=== PATIENT | female | born 1960 | race Asian ===

== ENCOUNTER 2016-05-26 14:50 | Outpatient (CLI) | payer OTHER | END 2016-05-26 14:51 | disposition home or self-care (01) | DX: G47.33 Obstructive sleep apnea (adult) (pediatric) (principal) ==

== ENCOUNTER 2016-07-20 15:06 | Outpatient (CLI) | payer OTHER | END 2016-07-20 15:07 | disposition home or self-care (01) | LOC: SC 15:06 | PROVIDERS: ATTEND Internal Medicine Pulmonary Disease | DX: G47.33 Obstructive sleep apnea (adult) (pediatric) (principal) | CPT/HCPCS: 99212; 99213 ==

== ENCOUNTER 2016-08-31 15:16 | Outpatient (CLI) | payer OTHER | END 2016-08-31 15:17 | disposition home or self-care (01) | LOC: SC 15:16 | PROVIDERS: ATTEND Internal Medicine Pulmonary Disease | DX: G47.33 Obstructive sleep apnea (adult) (pediatric) (principal) | CPT/HCPCS: 99212; 99213 ==

== ENCOUNTER 2016-09-29 19:41 | Outpatient (CLI) | payer OTHER | END 2016-09-29 19:42 | disposition home or self-care (01) | LOC: SC 19:41 | PROVIDERS: ATTEND Internal Medicine Pulmonary Disease | DX: G47.33 Obstructive sleep apnea (adult) (pediatric) (principal); G47.61 Periodic limb movement disorder | CPT/HCPCS: 95810 ==

== ENCOUNTER 2016-11-16 15:17 | Outpatient (CLI) | payer OTHER | END 2016-11-16 15:18 | disposition home or self-care (01) | LOC: SC 15:17 | PROVIDERS: ATTEND Internal Medicine Pulmonary Disease | DX: G47.33 Obstructive sleep apnea (adult) (pediatric) (principal); G47.61 Periodic limb movement disorder | CPT/HCPCS: 99212; 99213 ==

== ENCOUNTER 2017-04-15 16:36 | Outpatient (CLI) | payer OTHER ==
[2017-04-16 13:43] LABS: HEPATITIS C ANTIBODY NON-REACTIVE (NON-REACTIVE)
== END 2017-04-15 16:37 | disposition home or self-care (01) ==
LOC: LAB.WCP 16:36
PROVIDERS: ATTEND Internal Medicine
DX: Z13.818 Encounter for screening for other digestive system disorders (principal)
CPT/HCPCS: 36415; 86803

== ENCOUNTER 2019-09-04 14:30 | Emergency (ER) | payer OTHER ==
[2019-09-04 14:50] LABS: BILIRUBIN,URINE NEGATIVE (NEGATIVE); GLUCOSE, URINE (UA) >=1000 mg/dL (NEGATIVE); KETONES,URINE (UA) NEGATIVE (NEGATIVE); LEUKOCYTE ESTERASE, URINE NEGATIVE (NEGATIVE); NITRITE,URINE NEGATIVE (NEGATIVE); OCCULT BLOOD,URINE NEGATIVE (NEGATIVE); PROTEIN,URINE NEGATIVE (NEGATIVE); UROBILINOGEN,URINE 0.2 (NORMAL) E.U./dL (NORMAL)
[2019-09-04 14:55] LABS: CLARITY,URINE CLEAR (CLEAR)
--- NOTE | 2019-09-04 15:40 | ED Physician Documentation ---
PD HPI FEMALE - Stated complaint Stated Complaint: F - Chief complaint Chief Complaint: UTI - History obtained from History obtained from: Patient - History of Present Illness Timing - onset: How many days ago (few days of frequency of urine, but just small amounts out. Some labial/vaginal itchiness. No discharge. NO flank pain. No fever. Has not checked sugars lately due to glucometer not working.) Timing - duration: Days Timing - details: Gradual onset, Waxing and waning Associated symptoms: Vaginal discharge, Dysuria, Urinary frequency. 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 - Present Medications Home Medications: Ambulatory Orders Medication Instructions Recorded Confirmed Aspirin [Aspirin EC] 81 mg PO DAILY 09/13/14 09/13/14 Atorvastatin [Lipitor] 20 mg PO DAILY 09/13/14 09/13/14 Citalopram [CeleXA] 20 mg PO DAILY 09/13/14 09/13/14 Eszopiclone [Lunesta] 2 mg PO DAILY PRN 09/13/14 09/13/14 Insulin Aspart (Vial) [NovoLOG] 60 units SUBQ AC 09/13/14 09/13/14 Insulin Glargine,Hum.rec.anlog 80 units SUBQ BID 09/13/14 09/13/14 [Lantus] [place] Carbonate 450 mg PO DAILY 09/13/14 09/13/14 Omeprazole [PriLOSEC] 20 mg PO DAILY 09/13/14 09/13/14 Oxybutynin [Ditropan] 5 mg PO DAILY 09/13/14 09/13/14 Ziprasidone [Geodon] 60 mg PO DAILY 09/13/14 09/13/14 risperiDONE [RisperDAL] 1.5 mg PO BID 09/13/14 09/13/14 Blood Sugar Diagnostic [Glucometer 1 each MC BID #60 strip 09/04/19 Strips] Blood-Glucose Meter [Glucometer] 1 each BID #1 each 09/04/19 Fluconazole [Diflucan] 150 mg PO ONCE #1 tablet 09/04/19 Phenazopyridine HCl [Pyridium] 100 mg PO TID PRN #15 tablet 09/04/19 metroNIDAZOLE [Flagyl] 500 mg PO BID #14 tablet 09/04/19 - Allergies Allergies/Adverse Reactions: Allergies Allergy/AdvReac Type Severity Reaction Status Date / Time lisinopril AdvReac Respiratory Verified 09/04/19 14:36 meperidine [From Demerol] AdvReac Dizziness Verified 09/04/19 14:36 - Social History Does the pt smoke?: No Smoking Status: Never smoker Does the pt drink ETOH?: No Does the pt have substance abuse?: No - Immunizations Immunizations are current?: Yes - POLST Patient has POLST: No PD ED PE NORMAL - Vitals Vital signs reviewed: Yes - General General: Alert and oriented X 3, No acute distress, Well developed/nourished - Neck Neck: Supple, no meningeal sign, No adenopathy - Cardiac Cardiac: RRR, No murmur - Respiratory Respiratory: Clear bilaterally - Abdomen Abdomen: Soft, Non tender - Female Female : Deferred - Rectal Rectal: Deferred - Back Back: No CVA TTP - Derm Derm: Normal color, Warm and dry - Neuro Neuro: Alert and oriented X 3, No motor deficit, Normal speech Results - Vitals Vitals: Vital Signs - 24 hr 09/04/19 09/04/19 14:33 17:01 Temperature 36.9 C 36.8 C Heart Rate 88 86 Respiratory 16 16 Rate Blood Pressure 167/81 H 160/80 H O2 Saturation 100 100 Oxygen O2 Source Room air - Labs Labs: Laboratory Tests 09/04/19 09/04/19 09/04/19 14:43 16:27 16:42 POC Whole Bld Glucose 326 H Urine Color YELLOW Urine Clarity CLEAR Urine pH 7.0 Ur Specific [place] 1.010 Urine Protein NEGATIVE Urine Glucose (UA) >=1000 H Urine Ketones NEGATIVE Urine Occult Blood NEGATIVE Urine Nitrite NEGATIVE Urine Bilirubin NEGATIVE Urine Urobilinogen 0.2 (NORMAL) Ur Leukocyte Esterase NEGATIVE Ur Microscopic Review NOT INDICATED Urine Culture Comments NOT INDICATED C. glabrata (PCR) NEGATIVE C. krusei (PCR) NEGATIVE [place] species DNA NEGATIVE T. vaginalis (PCR) NEGATIVE Bact Vaginosis (PCR) NEGATIVE PD MEDICAL DECISION MAKING - ED course Complexity details: considered differential (UA is normal. Her blood sugar is not too high, so doubt frequency is just diuretic effect. Bladder scan is good, so no retention. Can test for vaginitis. Otherwise treat for presumed yeast vaginitis, pending culture results. ), d/w patient Departure - Departure Disposition: 01 Home, Self Care Clinical Impression: Dysuria Condition: Stable Record reviewed to determine appropriate education?: Yes Instructions: ED Dysuria Uncertain Cause Follow-Up: CHRISTINE SANTIAGO MD [Primary Care Provider] - Prescriptions: Fluconazole [Diflucan] 150 mg PO ONCE #1 tablet metroNIDAZOLE [Flagyl] 500 mg PO BID #14 tablet Blood-Glucose Meter [Glucometer] 1 each MC BID #1 each Blood Sugar Diagnostic [Glucometer Strips] 1 each MC BID #60 strip Phenazopyridine HCl [Pyridium] 100 mg PO TID PRN #15 tablet PRN Reason: Abdominal Pain Comments: Your blood sugar was moderately high at 320. Follow-up with your primary care regarding potential adjustments to your medications. Start tracking your blood sugars more regularly. Your bladder scanner showed appropriate emptying of the bladder. Your urine test does not show obvious signs of infection but at this point I would presume an infection causing your urinary symptoms. We can treat empirically pending culture. The culture should result in a day or two. There may be just some inflammation of the urethra as well causing the symptoms rather than infection. The phenazopyridine will help with this symptoms and commonly would improve with just that. Discharge Date/Time: 09/04/19 17:01
[2019-09-04] MEDS ORDERED: FLUCONAZOLE 100 MG TABLET PO STA (16:17)
[2019-09-04] MEDS ORDERED: PHENAZOPYRIDINE 100 MG TABLET PO STA (16:18)
[2019-09-04 17:02] VITALS: BP 160/80
[2019-09-04 19:44] LABS: CANDIDA GROUP DNA NEGATIVE (NEGATIVE); CANDIDA KRUSEI DNA NEGATIVE (NEGATIVE); TRICHOMONAS VAGINALIS DNA NEGATIVE (NEGATIVE)
== END 2019-09-04 17:01 | disposition home or self-care (01) ==
LOC: ED 14:30
DX: R30.0 Dysuria (principal); R35.0 Frequency of micturition; E11.65 Type 2 diabetes mellitus with hyperglycemia; Z79.4 Long term (current) use of insulin; Z79.82 Long term (current) use of aspirin
CPT/HCPCS: 51798; 81003; 87481; 87661; 87801; 99284; A9270; 81001; 87086

== ENCOUNTER 2020-02-19 13:33 | Outpatient (CLI) | payer OTHER ==
--- NOTE | 2020-02-19 15:39 | DEXA Report ---
PROCEDURE: Dexa Spine and/or Hip INDICATIONS: [facility] HX OF OSTEOPOROSIS TECHNIQUE: Dual energy x-ray absorptiometry (DXA) was performed on a [employer] System. Regions measur ed are the AP Spine, femoral neck, and if needed forearm. COMPARISON: None. FINDINGS: Lumbar Spine: Bone Mineral Density 0.991 g/cm/cm,T score -1.6, osteopenia Left Hip: Bone Mineral Density 0.854 g/cm/cm,T score -1.2, osteopenia Left Femoral Neck: Bone Mineral Density 0.756 g/cm/cm, T score -2.0, osteopenia (T score greater or equal to -1.0: NORMAL) (T score from -1.1 to -2.4: OSTEOPENIA) (T score less than or equal to -2.5 to: OSTEOPOROSIS) Impression: 1. Osteopenia within the spine, hip and femoral neck most severe in the femoral neck as above. Patients with diagnosis of osteoporosis or osteopenia should have regular bone mineral density assess ment. For those eligible for Medicare, routine testing is allowed once every 2 years. Testing frequ ency can be increased for patients who have rapidly progressing disease or for those who are receivin g medical therapy to restore bone mass. Reviewed by: Rylee Woodall MD on 02/19/2020 3:38 PM PST Approved by: Rylee Woodall MD on 02/19/2020 3:38 PM PST Station ID: [id number]
== END 2020-02-19 13:34 | disposition home or self-care (01) ==
LOC: DI 13:33
PROVIDERS: ATTEND Internal Medicine
DX: M85.89 Other specified disorders of bone density and structure, multiple sites (principal); Z82.62 Family history of osteoporosis

== ENCOUNTER 2020-02-25 00:45 | Emergency (ER) | payer OTHER ==
--- NOTE | 2020-02-25 02:24 | ED Physician Documentation ---
History of Present Illness - Stated complaint Stated Complaint: COUGH - Chief complaint Chief Complaint: Resp - History obtained from History obtained from: Patient - Additonal information Additional information: Patient comes emergency department chief complaint of feeling like she has to breathe deeply. She states it started this evening and that it has been somewhat intermittent. She denies chest pain. No fevers or chills. She has occasionally had a mild cough. With no sputum production. Patient states that she has not had any sick contacts recently. No cardiac or lung problems. No other complaints at this time. Review of Systems Ten Systems: 10 systems reviewed and negative Constitutional: reports: Reviewed and negative Eyes: reports: Reviewed and negative Ears: reports: Reviewed and negative Nose: reports: Reviewed and negative Throat: reports: Reviewed and negative Cardiac: reports: Reviewed and negative Respiratory: reports: Dyspnea GI: reports: Reviewed and negative : reports: Reviewed and negative Skin: reports: Reviewed and negative Musculoskeletal: reports: Reviewed and negative Neurologic: reports: Reviewed and negative Psychiatric: reports: Reviewed and negative Endocrine: reports: Reviewed and negative Immunocompromised: reports: Reviewed and negative PD PAST MEDICAL HISTORY - Past Medical History Past Medical History: Yes Cardiovascular: High cholesterol Endocrine/Autoimmune: Type 2 diabetes GI: GERD Psych: Bipolar disorder - Past Surgical History 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 - Present Medications Home Medications: Ambulatory Orders Medication Instructions Recorded Confirmed Aspirin [Aspirin EC] 81 mg PO DAILY 09/13/14 09/13/14 Atorvastatin [Lipitor] 20 mg PO DAILY 09/13/14 09/13/14 Citalopram [CeleXA] 20 mg PO DAILY 09/13/14 09/13/14 Eszopiclone [Lunesta] 2 mg PO DAILY PRN 09/13/14 09/13/14 Insulin Aspart (Vial) [NovoLOG] 60 units SUBQ AC 09/13/14 09/13/14 Insulin Glargine,Hum.rec.anlog 80 units SUBQ BID 09/13/14 09/13/14 [Lantus] [place] Carbonate 450 mg PO DAILY 09/13/14 09/13/14 Omeprazole [PriLOSEC] 20 mg PO DAILY 09/13/14 09/13/14 Oxybutynin [Ditropan] 5 mg PO DAILY 09/13/14 09/13/14 Ziprasidone [Geodon] 60 mg PO DAILY 09/13/14 09/13/14 risperiDONE [RisperDAL] 1.5 mg PO BID 09/13/14 09/13/14 Blood Sugar Diagnostic [Glucometer 1 each MC BID #60 strip 09/04/19 Strips] Blood-Glucose Meter [Glucometer] 1 each MC BID #1 each 09/04/19 Fluconazole [Diflucan] 150 mg PO ONCE #1 tablet 09/04/19 Phenazopyridine HCl [Pyridium] 100 mg PO TID PRN #15 tablet 09/04/19 metroNIDAZOLE [Flagyl] 500 mg PO BID #14 tablet 09/04/19 - Allergies Allergies/Adverse Reactions: Allergies Allergy/AdvReac Type Severity Reaction Status Date / Time lisinopril AdvReac Respiratory Verified 02/25/20 01:02 meperidine [From Demerol] AdvReac Dizziness Verified 02/25/20 01:02 - Social History Does the pt smoke?: No Smoking Status: Never smoker Does the pt drink ETOH?: No Does the pt have substance abuse?: No - Immunizations Immunizations are current?: Yes - POLST Patient has POLST: No PD ED PE NORMAL - Vitals Vital signs reviewed: Yes - General General: Alert and oriented X 3, No acute distress - HEENT HEENT: Atraumatic, PERRL, EOMI, Moist mucous membranes - Neck Neck: Supple, no meningeal sign - Cardiac Cardiac: RRR, No murmur - Respiratory Respiratory: No respiratory distress (Breathing normally and speaking without difficulty.), Clear bilaterally - Abdomen Abdomen: Soft, Non tender, Non distended - Derm Derm: Normal color, Warm and dry, No rash - Extremities Extremities: No deformity, No edema, No calf tenderness / cord - Neuro Neuro: Alert and oriented X 3 - Psych Psych: Normal mood, Normal affect Results - Vitals Vitals: Oxygen O2 Source Room air PD MEDICAL DECISION MAKING - ED course Complexity details: reviewed results, re-evaluated patient, considered differential, d/w patient ED course: The patient was actually very well-appearing and I did not feel that extensive work-up was indicated. She seemed anxious more than anything. She was sent for chest x-ray which was found to be negative. I discussed with the patient that she does not have an emergent condition, her vital signs are normal, and she is stable for discharge. We have discussed home management of the symptoms, as well as usual indications for return. Departure - Departure Disposition: 01 Home, Self Care Clinical Impression: Dyspnea Qualifiers: Dyspnea type: unspecified Qualified Code(s): R06.00 - Dyspnea, unspecified Condition: Stable Instructions: ED Dyspnea Shortness of Breath Comments: Your chest x-ray looks great, and your lung exam and oxygen saturation are also very good. There is no evidence of an emergent condition causing your symptoms. If you continue to have the sense of needing to breathe deeply, please follow- up with your primary care physician. If you develop severe chest pain or shortness of breath, please return to the emergency department. Discharge Date/Time: 02/25/20 02:33
[2020-02-25 02:32] VITALS: BP 135/72
--- NOTE | 2020-02-25 08:25 | XRAY Report ---
PROCEDURE: Chest 1 View X-Ray INDICATIONS: chest pain TECHNIQUE: One view of the chest was acquired. COMPARISON: None. FINDINGS: Surgical changes and devices: None. Lungs and pleura: No pleural effusions or pneumothorax. Lungs are clear. Mediastinum: Mediastinal contours appear normal. Heart size is normal. Bones and chest wall: No suspicious bony lesions. Overlying soft tissues appear unremarkable. IMPRESSION: No acute cardiopulmonary findings. Findings are concordant with the overnight interpretation. Reviewed by: Mary Jo Horvath MD on 02/25/2020 7:24 AM [facility] Approved by: Mary Jo Horvath MD on 02/25/2020 7:24 AM [facility] Station ID: [id number]
== END 2020-02-25 02:33 | disposition home or self-care (01) ==
LOC: ED 00:45
DX: R06.00 Dyspnea, unspecified (principal); E11.9 Type 2 diabetes mellitus without complications; Z79.4 Long term (current) use of insulin
CPT/HCPCS: 99282; 99283

== ENCOUNTER 2020-04-03 16:14 | Emergency (ER) | payer OTHER ==
[2020-04-03 16:20] VITALS: BP 147/60
--- NOTE | 2020-04-03 16:23 | ED Physician Documentation ---
PD HPI LOWER EXT INJURY - Stated complaint Stated Complaint: LT FOOT PX - Chief complaint Chief Complaint: Ext Problem - History obtained from History obtained from: Patient - History of Present Illness PD HPI LOW EXT INJURY LOCATION: Left, Foot Type of injury: Other (not aware of particular injury, but onset dorsal proximal foot pain with walking and movement 3 days ago that has persisted and worsened. No redness nor swelling.). No: Fall, Twist Timing - onset: How many days ago (3) Timing - details: Gradual onset, Intermittant (not hurting at rest. Hurts with movement and walking.) Improved by: Rest Worsened by: Moving, Palpating, Other (walking mostly) Associated symptoms: No: Weakness, Numbness, Swelling, Discolored Similar symptoms before: Has not had sx before Recently seen: Not recently seen Review of Systems Constitutional: denies: Fever, Chills Nose: denies: Rhinorrhea / runny nose, Congestion Throat: denies: Sore throat Respiratory: denies: Cough Skin: denies: Rash, Lesions Musculoskeletal: denies: Extremity swelling Neurologic: denies: Focal weakness, Numbness PD PAST MEDICAL HISTORY - Past Medical History Cardiovascular: High cholesterol Endocrine/Autoimmune: Type 2 diabetes GI: GERD Psych: Bipolar disorder - Past Surgical History 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 - Present Medications Home Medications: Ambulatory Orders Medication Instructions Recorded Confirmed Aspirin [Aspirin EC] 81 mg PO DAILY 09/13/14 09/13/14 Atorvastatin [Lipitor] 20 mg PO DAILY 09/13/14 09/13/14 Citalopram [CeleXA] 20 mg PO DAILY 09/13/14 09/13/14 Eszopiclone [Lunesta] 2 mg PO DAILY PRN 09/13/14 09/13/14 Insulin Aspart (Vial) [NovoLOG] 60 units SUBQ AC 09/13/14 09/13/14 Insulin Glargine,Hum.rec.anlog 80 units SUBQ BID 09/13/14 09/13/14 [Lantus] [place] Carbonate 450 mg PO DAILY 09/13/14 09/13/14 Omeprazole [PriLOSEC] 20 mg PO DAILY 09/13/14 09/13/14 Oxybutynin [Ditropan] 5 mg PO DAILY 09/13/14 09/13/14 Ziprasidone [Geodon] 60 mg PO DAILY 09/13/14 09/13/14 risperiDONE [RisperDAL] 1.5 mg PO BID 09/13/14 09/13/14 Blood Sugar Diagnostic [Glucometer 1 each MC BID #60 strip 09/04/19 Strips] Blood-Glucose Meter [Glucometer] 1 each MC BID #1 each 09/04/19 Fluconazole [Diflucan] 150 mg PO ONCE #1 tablet 09/04/19 Phenazopyridine HCl [Pyridium] 100 mg PO TID PRN #15 tablet 09/04/19 metroNIDAZOLE [Flagyl] 500 mg PO BID #14 tablet 09/04/19 Naproxen Sodium [Anaprox Ds] 550 mg PO BID #20 tablet 04/03/20 - Allergies Allergies/Adverse Reactions: Allergies Allergy/AdvReac Type Severity Reaction Status Date / Time lisinopril AdvReac Respiratory Verified 04/03/20 16:20 meperidine [From Demerol] AdvReac Dizziness Verified 04/03/20 16:20 - Social History Does the pt smoke?: No Smoking Status: Never smoker Does the pt drink ETOH?: No Does the pt have substance abuse?: No - Immunizations Immunizations are current?: Yes - POLST Patient has POLST: No PD ED PE NORMAL - Vitals Vital signs reviewed: Yes - General General: Alert and oriented X 3, No acute distress, Well developed/nourished - Derm Derm: Normal color, Warm and dry - Extremities Extremities: Other (left foot with tenderness dorsal proximal foot. No swelling nor redness. Good pulses, color and cap refill distal. No skin sores nor lesions around toes. ) - Neuro Neuro: No motor deficit, No sensory deficit Results - Vitals Vitals: Vital Signs - 24 hr 04/03/20 16:17 Temperature 36.9 C Heart Rate 89 Respiratory 16 Rate Blood Pressure 147/60 H O2 Saturation 99 Oxygen O2 Source Room air - Rads (name of study) left foot Radiology: Prelim report reviewed (no acute process. osteoarthritis. ), See rad report Departure - Departure Disposition: 01 Home, Self Care Clinical Impression: Foot sprain Qualifiers: Encounter type: initial encounter Laterality: left Qualified Code(s): S93.602A - Unspecified sprain of left foot, initial encounter Condition: Stable Record reviewed to determine appropriate education?: Yes Instructions: ED Sprain Foot Follow-Up: CHRISTINE SANTIAGO MD [Primary Care Provider] - Prescriptions: Naproxen Sodium [Anaprox Ds] 550 mg PO BID #20 tablet Comments: Your x-ray appears normal. This seems likely to be a sprain of the ligaments or muscles of the midfoot. Use the firm soled shoe provided when up and around. Limit activity as needed. Use naproxen anti-inflammatory twice daily for the next 5 to 7 days. Add Tylenol every 4-6 hours if needed for pain. Recheck if not improved well over the next several days and resolved by 4 to 5 days. Discharge Date/Time: 04/03/20 17:16
[2020-04-03] MEDS ORDERED: NAPROXEN 250 MG TABLET PO STA (16:36)
[2020-04-03] MEDS ORDERED: ACETAMINOPHEN 325 MG TABLET PO STA (16:36)
--- NOTE | 2020-04-03 16:51 | XRAY Report ---
PROCEDURE: Foot 3 View LT INDICATIONS: foot pain for 3 days TECHNIQUE: 3 views of the foot were acquired. COMPARISON: None FINDINGS: Bones: No fractures or dislocations. No suspicious bony lesions. Multifocal joint space narrowing and periarticular osteophyte formation at the interphalangeal joints of the digits, indicating osteoa rthritis. Calcaneal spurring. Soft tissues: No tibiotalar joint effusion. Achilles tendon appears normal. IMPRESSION: 1. Osteoarthritis. 2. No acute fracture. No osseous lesion. If symptoms and/or clinical suspicion for pathology continue , further assessment with repeat plain films, or advanced imaging (e.g., CT, MRI, or bone scan) is re commended for further assessment. Reviewed by: Yoav Goel MD on 04/03/2020 4:49 PM PST Approved by: Yoav Goel MD on 04/03/2020 4:49 PM PST Station ID: [id number]
== END 2020-04-03 17:16 | disposition home or self-care (01) ==
LOC: ED 16:14
DX: S93.602A Unspecified sprain of left foot, initial encounter (principal); X58.XXXA Exposure to other specified factors, initial encounter; M19.072 Primary osteoarthritis, left ankle and foot; E11.9 Type 2 diabetes mellitus without complications; Z79.4 Long term (current) use of insulin
CPT/HCPCS: 73630; 99283; A9270

== ENCOUNTER 2020-04-09 13:37 | Outpatient (CLI) | payer OTHER ==
--- NOTE | 2020-04-10 12:29 | Mammography Report ---
BILATERAL DIGITAL SCREENING MAMMOGRAM 3D/2D: 04/09/2020 CLINICAL: Routine screening. Comparison is made to exams dated: 06/08/2018 ultrasound, 06/08/2018 mammogram, 05/20/2018 mammogram, mammogram, 04/21/2016 mammogram, and 03/23/2012 mammogram - [facility]. The ti ssue of both breasts is heterogeneously dense. This may lower the sensitivity of mammography. There is a biopsy clip in the right breast. No significant masses, calcifications, or other findings are seen in either breast. There has been no significant interval change. IMPRESSION: NEGATIVE There is no mammographic evidence of malignancy. A 1 year screening mammogram is recommended. This exam was interpreted at Station ID: [id number]. NOTE: For mammograms, a report in lay terms will be sent to the patient. Approximately 15% of breast malignancies will not be visualized mammographically. In the management of a palpable breast mass, a negative mammogram must not discourage biopsy of a clinically suspicious lesion. Electronically Signed By: Spenser paula/penrad:04/09/2020 17:27:23 ACR BI-RADS Category 1: Negative 3341F PARENCHYMAL PATTERN: (D) - The breast(s) demonstrate(s) heterogeneously dense fibroglandular diandra leiva. BI-RADS CATEGORY: (1) - 1 RECOMMENDATION: (ANNUAL) - Recommend routine annual screening mammography. [id number] 1 year screening LATERALITY: (B)
== END 2020-04-09 13:38 | disposition home or self-care (01) ==
LOC: DI 13:37
DX: Z12.31 Encounter for screening mammogram for malignant neoplasm of breast (principal)

== ENCOUNTER 2021-04-18 15:33 | Emergency (ER) | payer OTHER ==
[2021-04-18 16:01] LABS: BASOPHILS % (AUTO) 0.6 %; EOSINOPHILS # (AUTO) 0.2 10^3/uL (0.0-0.7); EOSINOPHILS % (AUTO) 2.6 %; HCT - HEMATOCRIT 42.4 % (37.0-47.0); LYMPHOCYTES # (AUTO) 0.8 10^3/uL (1.5-3.5); LYMPHOCYTES % (AUTO) 12.8 %; MEAN CORPUSCULAR VOLUME 84.8 fL (81.0-99.0); MEAN PLATELET VOLUME 10.3 fL (7.9-10.8); MONOCYTES # (AUTO) 0.4 10^3/uL (0.0-1.0); MONOCYTES % (AUTO) 6.4 %; NEUTROPHILS # (AUTO) 4.8 10^3/uL (1.5-6.6); NEUTROPHILS % (AUTO) 77.3 %; PLT - PLATELET COUNT 169 10^3/uL (130-450); RED CELL DISTRIBUTION WIDTH 12.9 % (12.0-15.0); WHITE BLOOD COUNT 6.3 x10^3/uL (4.8-10.8)
[2021-04-18 16:12] VITALS: BP 149/100
[2021-04-18 16:15] LABS: ALBUMIN 3.6 g/dL (3.2-5.5); BILIRUBIN,TOTAL 0.4 mg/dL (0.2-1.0); CALCIUM 9.2 mg/dL (8.5-10.3); CREATININE 0.6 mg/dL (0.4-1.0); TOTAL PROTEIN 7.2 g/dL (6.7-8.2)
[2021-04-18] MEDS ORDERED: IBUPROFEN 800 MG TABLET PO STA (16:18)
[2021-04-18 16:43] LABS: BILIRUBIN,URINE NEGATIVE (NEGATIVE); GLUCOSE, URINE (UA) >=1000 mg/dL (NEGATIVE); KETONES,URINE (UA) NEGATIVE (NEGATIVE); LEUKOCYTE ESTERASE, URINE NEGATIVE (NEGATIVE); NITRITE,URINE NEGATIVE (NEGATIVE); OCCULT BLOOD,URINE NEGATIVE (NEGATIVE); PH,URINE 6.5 PH (5.0-7.5); PROTEIN,URINE TRACE mg/dL (NEGATIVE); UROBILINOGEN,URINE 0.2 (NORMAL) E.U./dL (NORMAL)
[2021-04-18 16:45] LABS: CLARITY,URINE CLEAR (CLEAR)
--- NOTE | 2021-04-18 17:19 | ED Physician Documentation ---
History of Present Illness - Stated complaint Stated Complaint: ABD/BACK PX - Chief complaint Chief Complaint: Abd Pain - History obtained from History obtained from: Patient - History of Present Illness Timing: How many days ago (5) Pain level max: 8 Pain level now: 6 - Additonal information Additional information: 61-year-old female with back pain. She states that is worse with movement, better with rest. Only hurts when she tries to sit up. Also has some pain when she walks. Does not recall any injuries. No loss of bowel or bladder control. No radiation. Has not taken anything for pain. Patient does not recall any specific injuries. No numbness or tingling. No abdominal pain. No vomiting, diarrhea, constipation. Review of Systems Ten Systems: 10 systems reviewed and negative Constitutional: denies: Fever, Chills Throat: denies: Sore throat Cardiac: denies: Chest pain / pressure, Palpitations Respiratory: denies: Cough GI: denies: Vomiting, Diarrhea Skin: denies: Rash Musculoskeletal: denies: Neck pain, Back pain Neurologic: denies: Headache PD PAST MEDICAL HISTORY - Past Medical History Past Medical History: Yes Cardiovascular: High cholesterol Respiratory: None Neuro: None Endocrine/Autoimmune: Type 2 diabetes GI: GERD SUPPLY TECH: None : None HEENT: None Psych: Bipolar disorder Musculoskeletal: None - Past Surgical History Past Surgical History: Yes /SUPPLY TECH: Tubal ligation - Present Medications Home Medications: Ambulatory Orders Medication Instructions Recorded Confirmed Aspirin [Aspirin EC] 81 mg PO DAILY 09/13/14 09/13/14 Atorvastatin [Lipitor] 20 mg PO DAILY 09/13/14 09/13/14 Citalopram [CeleXA] 20 mg PO DAILY 09/13/14 09/13/14 Eszopiclone [Lunesta] 2 mg PO DAILY PRN 09/13/14 09/13/14 Insulin Aspart (Vial) [NovoLOG] 60 units SUBQ AC 09/13/14 09/13/14 Insulin Glargine,Hum.rec.anlog 80 units SUBQ BID 09/13/14 09/13/14 [Lantus] [place] Carbonate 450 mg PO DAILY 09/13/14 09/13/14 Omeprazole [PriLOSEC] 20 mg PO DAILY 09/13/14 09/13/14 Oxybutynin [Ditropan] 5 mg PO DAILY 09/13/14 09/13/14 Ziprasidone [Geodon] 60 mg PO DAILY 09/13/14 09/13/14 risperiDONE [RisperDAL] 1.5 mg PO BID 09/13/14 09/13/14 Blood Sugar Diagnostic [Glucometer 1 each MC BID #60 strip 09/04/19 Strips] Blood-Glucose Meter [Glucometer] 1 each MC BID #1 each 09/04/19 Fluconazole [Diflucan] 150 mg PO ONCE #1 tablet 09/04/19 Phenazopyridine HCl [Pyridium] 100 mg PO TID PRN #15 tablet 09/04/19 metroNIDAZOLE [Flagyl] 500 mg PO BID #14 tablet 09/04/19 Naproxen Sodium [Anaprox Ds] 550 mg PO BID #20 tablet 04/03/20 Ibuprofen [Motrin] 800 mg PO Q8H PRN #30 tablet 04/18/21 methocarbamoL [Robaxin] 500 mg PO Q6H PRN #20 tablet 04/18/21 - Allergies Allergies/Adverse Reactions: Allergies Allergy/AdvReac Type Severity Reaction Status Date / Time lisinopril AdvReac Respiratory Verified 04/18/21 16:15 meperidine [From Demerol] AdvReac Dizziness Verified 04/18/21 16:15 - Social History Does the pt smoke?: No Smoking Status: Never smoker Does the pt drink ETOH?: No Does the pt have substance abuse?: No - Immunizations Immunizations are current?: Yes - POLST Patient has POLST: No PD ED PE NORMAL - Vitals Vital signs reviewed: Yes - General General: Alert and oriented X 3, No acute distress - HEENT HEENT: Moist mucous membranes - Neck Neck: Supple, no meningeal sign - Cardiac Cardiac: RRR, Strong equal pulses - Respiratory Respiratory: No respiratory distress, Clear bilaterally - Abdomen Abdomen: Soft, Non tender, Non distended - Back Back: No spinal TTP, Other (No midline tenderness to palpation or percussion. No step-off or deformity. Mild paraspinal tenderness bilateral lower lumbar.) - Derm Derm: Warm and dry - Extremities Extremities: No edema - Neuro Neuro: Alert and oriented X 3, Other (Normal bilateral lower extremity patellar and ankle jerk reflexes. Normal great toe extension bilaterally. no saddle anesthesia) - Psych Psych: Normal mood, Normal affect Results - Vitals Vitals: Vital Signs - 24 hr 04/18/21 04/18/21 04/18/21 15:34 16:11 17:38 Temperature 36.4 C L 37.2 C Heart Rate 69 58 L 88 Respiratory 16 16 Rate Blood Pressure 149/73 H 149/100 H O2 Saturation 97 99 100 Oxygen O2 Source Room air - Labs Labs: Laboratory Tests 04/18/21 04/18/21 04/18/21 15:55 15:55 16:06 WBC 6.3 RBC 5.00 Hgb 14.0 Hct 42.4 MCV 84.8 MCH 28.0 MCHC 33.0 RDW 12.9 Plt Count 169 MPV 10.3 Neut # (Auto) 4.8 Lymph # (Auto) 0.8 L [place] # (Auto) 0.4 Eos # (Auto) 0.2 Baso # (Auto) 0.0 Absolute Nucleated RBC 0.00 Nucleated RBC % 0.0 Sodium 134 L Potassium 4.0 Chloride 99 L Carbon Dioxide 26 Anion Gap 9.0 BUN 16 Creatinine 0.6 Estimated GFR (MDRD) 101 Glucose 361 H Calcium 9.2 Total Bilirubin 0.4 AST 13 ALT 15 Alkaline Phosphatase 103 Total Protein 7.2 Albumin 3.6 Globulin 3.6 Albumin/Globulin Ratio 1.0 Lipase 49 Urine Color YELLOW Urine Clarity CLEAR Urine pH 6.5 Ur Specific [place] 1.015 Urine Protein TRACE Urine Glucose (UA) >=1000 H Urine Ketones NEGATIVE Urine Occult Blood NEGATIVE Urine Nitrite NEGATIVE Urine Bilirubin NEGATIVE Urine Urobilinogen 0.2 (NORMAL) Ur Leukocyte Esterase NEGATIVE Ur Microscopic Review NOT INDICATED Urine Culture Comments NOT INDICATED PD MEDICAL DECISION MAKING - ED course Complexity details: considered differential (No cauda equina, no spinal epidural abscess, no fracture, no aortic dissection or evidence of aneursym rupture), d/w patient ED course: Patient feels better after anti-inflammatory and muscle relaxant. Patient is well-appearing, nontoxic. No evidence of cauda equina, epidural abscess. Abdomen remains soft, nontender nondistended on serial exam. Patient counseled regarding signs and symptoms for which I believe and urgent re-evaluation would be necessary. Patient with good understanding of and agreement to plan and is comfortable going home at this time This document was made in part using voice recognition software. While efforts are made to proofread this document, sound alike and grammatical errors may occur. Patient is ambulating without difficulty in the emergency department. Departure - Departure Disposition: 01 Home, Self Care Clinical Impression: Back pain Qualifiers: Back pain location: low back pain Chronicity: acute Back pain laterality: bilateral Sciatica presence: without sciatica Qualified Code(s): M54.50 - Low back pain, unspecified Condition: Good Instructions: ED Neck Back Pain General Follow-Up: CHRISTINE SANTIAGO MD [Primary Care Provider] - Within 1 week Prescriptions: Ibuprofen [Motrin] 800 mg PO Q8H PRN #30 tablet PRN Reason: PAIN &/OR FEVER methocarbamoL [Robaxin] 500 mg PO Q6H PRN #20 tablet PRN Reason: muscle spasm Comments: Your prescriptions were sent to [facility] in [place]. Please follow-up with your doctor for further care. Return if you worsen. Discharge Date/Time: 04/18/21 17:40
[2021-04-18] MEDS ORDERED: methocarbamoL 500 MG TABLET PO STA (17:29)
== END 2021-04-18 17:40 | disposition home or self-care (01) ==
LOC: ED 15:33
DX: M54.50 Low back pain, unspecified (principal); E11.9 Type 2 diabetes mellitus without complications; Z79.4 Long term (current) use of insulin
CPT/HCPCS: 36415; 80053; 81003; 83690; 85025; 99282; 99283; A9270; 81001; 87086

== ENCOUNTER 2021-09-05 21:35 | Emergency (ER) | payer OTHER ==
--- OUTSIDE RECORDS SUMMARY | 2021-09-05 22:01 | EXTERNAL MEDICAL SUMMARY RPT | Continuity of Care Document ---
:1960 Author Organization [facility] Address [address] [place] [address] Phone Allergies and Intolerances date description facility type (no date) Mild [facility] (unknown) (no date) haloperidol [facility] (unknown) (no date) hydroxyzine [facility] (unknown) (no date) lisinopril [facility] (unknown) (no date) meperidine [facility] (unknown) (no date) zolpidem [facility] (unknown) Encounters No information. Functional Status No information. Immunizations No information. Medications No information. Problems No information. Procedures date description facility [id number] General Physician [facility] Results/Labs test date author facility value unit interpret ation Result panel 1 (unknown) (no (unknown) (unknown) (no value) (units (unk nown) date) unknown) (unknown) (no (unknown) (unknown) *Please continue (units (unknown) date) to take your unknown) regular medications as directed. (unknown) (no (unknown) (unknown) SUBCUT QWEEK 0RF (units (unknown) date) unknown) (unknown) (no (unknown) (unknown) Date of Service: (units (unknown) date) 08/02/21 unknown) (unknown) (no (unknown) (unknown) (no value) (units (unk nown) date) unknown) (unknown) (no (unknown) (unknown) <Electronically (units (unknown) date) signed by Celestina ZABALAP Crew> (unknown) (no (unknown) (unknown) 08/02/21 1804 (units ( unknown) date) unknown) (unknown) (no (unknown) (unknown) 2 mg PO BEDTIME (units (unknown) date) PRN (Reason: unknown) insomnia) Qty: 10 2RF (unknown) (no (unknown) (unknown) 20 mg PO DAILY (units (unknown) date) Qty: 30 5RF unknown) (unknown) (no (unknown) (unknown) 3 mg PO BEDTIME (units (unknown) date) Qty: 30 5RF unknown) (unknown) (no (unknown) (unknown) 450 mg PO BEDTIME (units (unknown) date) Qty: 30 5RF unknown) (unknown) (no (unknown) (unknown) 60 mg PO QPM Qty: (units (unknown) date) 30 5RF unknown) (unknown) (no (unknown) (unknown) 60 unit SUBCUT (units (unknown) date) BID 0RF unknown) (unknown) (no (unknown) (unknown) 81 mg PO DAILY (units (unknown) date) 0RF unknown) (unknown) (no (unknown) (unknown) Allergies (units (unkn own) date) unknown) (unknown) (no (unknown) (unknown) Emergency Report (units (unknown) date) unknown) (unknown) (no (unknown) (unknown) Home Medications (units (unknown) date) unknown) (unknown) (no (unknown) (unknown) [facility] (units (unknown) date) [address] [place] [address] unknown) [place] [address] (unknown) (no (unknown) (unknown) Previous Rx's (units ( unknown) date) unknown) (unknown) (no (unknown) (unknown) Vital Signs - 8 (units (unknown) date) hr unknown) (unknown) (no (unknown) (unknown) [ ] New (units (unkno wn) date) medication unknown) prescriptions sent to your pharmacy: [ ] (unknown) (no (unknown) (unknown) [ ] New (units (unkno wn) date) medication written unknown) as a paper prescription (unknown) (no (unknown) (unknown) [x ] No new (units (un known) date) medications given unknown) (unknown) (no (unknown) (unknown) nausea, (units (unkno wn) date) unknown) (unknown) (no (unknown) (unknown) vomitting (units (unkn own) date) unknown) (unknown) (no (unknown) (unknown) (no value) (units (unk nown) date) unknown) (unknown) (no (unknown) (unknown) Lantus Solostar (units (unknown) date) U-100 Insulin 100 unknown) unit/mL (3 mL) insulin pen (unknown) (no (unknown) (unknown) Trulicity 1.5 (units ( unknown) date) mg/0.5 mL pen unknown) injector (unknown) (no (unknown) (unknown) aspirin 81 mg (units ( unknown) date) tablet,delayed unknown) release (DR/EC) (unknown) (no (unknown) (unknown) citalopram 20 mg (units (unknown) date) tablet unknown) (unknown) (no (unknown) (unknown) eszopiclone 2 mg (units (unknown) date) tablet unknown) (unknown) (no (unknown) (unknown) lithium carbonate (units (unknown) date) 450 mg tablet unknown) extended release (unknown) (no (unknown) (unknown) risperidone 3 mg (units (unknown) date) tablet unknown) (unknown) (no (unknown) (unknown) ziprasidone HCl (units (unknown) date) 60 mg capsule unknown) (unknown) (no (unknown) (unknown) 08/02/21 (units (unkno wn) date) unknown) (unknown) (no (unknown) (unknown) Medication (units (unk nown) date) Instructions unknown) Recorded (unknown) (no (unknown) (unknown) Medication (units (unk nown) date) Instructions unknown) Recorded Confirmed (unknown) (no (unknown) (unknown) 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 (unknown) (no (unknown) (unknown) *If you do not (units (unknown) date) have a primary unknown) care provider please contact [phone] to (unknown) (no (unknown) (unknown) *Please follow up (units (unknown) date) with your primary unknown) care provider in 2-3 days, call for an (unknown) (no (unknown) (unknown) *Return to (units (unk nown) date) Emergency unknown) Department if you should have any new, worsening or (unknown) (no (unknown) (unknown) *What to do: (units (u nknown) date) unknown) (unknown) (no (unknown) (unknown) *You have been (units (unknown) date) diagnosed with unknown) peripheral neuropathy most likely related to your (unknown) (no (unknown) (unknown) 16:00 (units (unkno wn) date) unknown) (unknown) (no (unknown) (unknown) 2448 (units (unkno wn) date) unknown) (unknown) (no (unknown) (unknown) Activity (units (unkno wn) date) Restrictions/Addit unknown) ional Instructions: (unknown) (no (unknown) (unknown) Age/Sex: 61 / F (units (unknown) date) unknown) (unknown) (no (unknown) (unknown) Allergy/AdvReac (units (unknown) date) Type Severity unknown) Reaction Status Date / Time (unknown) (no (unknown) (unknown) Bipolar 1 (units (unkn own) date) disorder, unknown) depressed, mild (unknown) (no (unknown) (unknown) Bipolar disorder, (units (unknown) date) current episode unknown) manic severe with psychotic features (unknown) (no (unknown) (unknown) Blood Pressure (units (unknown) date) 134/60 08/02/21 unknown) 16:00 (unknown) (no (unknown) (unknown) Blood Pressure (units (unknown) date) 134/60 unknown) (unknown) (no (unknown) (unknown) Cardio: denies (units (unknown) date) chest pain, unknown) palpitations (unknown) (no (unknown) (unknown) Cardiovascular: (units (unknown) date) regular rate and unknown) rhythm, no peripheral edema, warm extremities (unknown) (no (unknown) (unknown) Chief Complaint: (units (unknown) date) Extremity Injury, unknown) Lower (unknown) (no (unknown) (unknown) Clinical (units (unkno wn) date) Impression: unknown) (unknown) (no (unknown) (unknown) Course (units (unkno wn) date) unknown) (unknown) (no (unknown) (unknown) : 1960 (units (unknown) date) Acct:[id number] unknown) (unknown) (no (unknown) (unknown) Departure (units (unkn own) date) unknown) (unknown) (no (unknown) (unknown) Discharge Plan (units (unknown) date) unknown) (unknown) (no (unknown) (unknown) 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 unknown) (unknown) (no (unknown) (unknown) ER Physician: (units ( unknown) date) BienvenidowCelestina unknown) [employer]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 (unknown) (no (unknown) (unknown) Exam (units (unkno wn) date) unknown) (unknown) (no (unknown) (unknown) Exam Narrative: (units (unknown) date) unknown) (unknown) (no (unknown) (unknown) Eyes: denies (units (u nknown) date) visual changes, unknown) eye pain (unknown) (no (unknown) (unknown) Eyes: equal round (units (unknown) date) and reactive, unknown) EOMI, conjunctiva normal (unknown) (no (unknown) (unknown) GI: abdomen soft, (units (unknown) date) nontender to unknown) palpation, nondistended, no masses, no exquisite (unknown) (no (unknown) (unknown) GI: denies (units (unk nown) date) abdominal pain, unknown) nausea, vomiting, or diarrhea (unknown) (no (unknown) (unknown) : denies (units (unk n) date) dysuria, hematuria unknown) or flank pain (unknown) (no (unknown) (unknown) General (units (unkno wn) date) unknown) (unknown) (no (unknown) (unknown) General: (units (unkno wn) date) cooperative, unknown) comfortable, in no acute distress, well groomed (unknown) (no (unknown) (unknown) General: denies (units (unknown) date) fever, chills unknown) (unknown) (no (unknown) (unknown) HPI - Extremity (units (unknown) date) Injury (Lower) unknown) (unknown) (no (unknown) (unknown) HPI Narrative: (units (unknown) date) unknown) (unknown) (no (unknown) (unknown) Head/Neck: denies (units (unknown) date) headache, neck unknown) pain (unknown) (no (unknown) (unknown) Head: atraumatic, (units (unknown) date) symmetrical facial unknown) expressions (unknown) (no (unknown) (unknown) History of (units (unk nown) date) Present Illness unknown) (unknown) (no (unknown) (unknown) Independently (units ( unknown) date) reviewed vitals unknown) signs and nursing notes. (unknown) (no (unknown) (unknown) Initial Vital (units ( unknown) date) Signs unknown) (unknown) (no (unknown) (unknown) Initial Vital (units ( unknown) date) Signs: unknown) (unknown) (no (unknown) (unknown) Instructions: DI (units (unknown) date) for Diabetic unknown) Neuropathy, DI for Peripheral Neuropathy (unknown) (no (unknown) (unknown) MDM - Extremity (units (unknown) date) Injury (Lower) unknown) (unknown) (no (unknown) (unknown) MDM Narrative (units ( unknown) date) unknown) (unknown) (no (unknown) (unknown) MSK: denies new (units (unknown) date) joint pain, muscle unknown) weakness or swelling (unknown) (no (unknown) (unknown) MSK: moves all (units (unknown) date) extremities, unknown) neurovascularly intact, no weakness, normal tone (unknown) (no (unknown) (unknown) Medical History (units (unknown) date) (Reviewed 08/02/21 unknown) @ 18:00 [facility] (unknown) (no (unknown) (unknown) Medical decision (units (unknown) date) making narrative: unknown) (unknown) (no (unknown) (unknown) Mode of arrival: (units (unknown) date) Ambulatory unknown) (unknown) (no (unknown) (unknown) Mouth/Throat: (units ( unknown) date) moist mucus unknown) membranes (unknown) (no (unknown) (unknown) Narrative (units (unkn own) date) unknown) (unknown) (no (unknown) (unknown) Narrative: (units (unk nown) date) unknown) (unknown) (no (unknown) (unknown) Neck: supple (units (u nknown) date) unknown) (unknown) (no (unknown) (unknown) Neuro: denies (units ( unknown) date) numbness, unknown) tingling, dizziness (unknown) (no (unknown) (unknown) Neuro: normal (units ( unknown) date) speech and unknown) cognition, A+O x3 (unknown) (no (unknown) (unknown) No Action (units (unkn own) date) unknown) (unknown) (no (unknown) (unknown) Nose: nares (units (un known) date) patent, no unknown) rhinorrhea (unknown) (no (unknown) (unknown) Patient (units (unkno wn) date) Disposition: Home unknown) (unknown) (no (unknown) (unknown) Patient History (units (unknown) date) unknown) (unknown) (no (unknown) (unknown) Patient (units (unkno wn) date) understands to unknown) follow up closely with outpatient providers as (unknown) (no (unknown) (unknown) Patient: (units (unkno wn) date) Maribeth Haynes unknown) MR#: [id number] (unknown) (no (unknown) (unknown) Please follow-up (units (unknown) date) with Dr. Suarez unknown) at your scheduled podiatry appointment, please (unknown) (no (unknown) (unknown) Prescriptions: (units (unknown) date) unknown) (unknown) (no (unknown) (unknown) Psych: mental (units ( unknown) date) status is grossly unknown) normal, congruent mood, normal affect, pleasant (unknown) (no (unknown) (unknown) Pulse Oximetry (units (unknown) date) 99 08/02/21 unknown) 16:00 (unknown) (no (unknown) (unknown) Pulse Oximetry 99 (units (unknown) date) unknown) (unknown) (no (unknown) (unknown) Pulse Rate 45 L (units (unknown) date) 08/02/21 16:00 unknown) (unknown) (no (unknown) (unknown) Pulse Rate 45 L (units (unknown) date) unknown) (unknown) (no (unknown) (unknown) Referrals: (units (unk nown) date) unknown) (unknown) (no (unknown) (unknown) Related Data (units (u nknown) date) unknown) (unknown) (no (unknown) (unknown) Respiratory Rate (units (unknown) date) 17 08/02/21 unknown) 16:00 (unknown) (no (unknown) (unknown) Respiratory Rate (units (unknown) date) 17 unknown) (unknown) (no (unknown) (unknown) Respiratory: (units (u nknown) date) denies shortness unknown) of breath, cough (unknown) (no (unknown) (unknown) Respiratory: (units (u nknown) date) normal effort, unknown) able to speak in complete sentences, no audible (unknown) (no (unknown) (unknown) Review of Systems (units (unknown) date) unknown) (unknown) (no (unknown) (unknown) Signed By: (units (unk nown) date) unknown) (unknown) (no (unknown) (unknown) Skin: brisk (units (un known) date) capillary refill, unknown) no rash, no erythema, patient's feet are dry, (unknown) (no (unknown) (unknown) Skin: denies (units (u nknown) date) rash, itching or unknown) wound (unknown) (no (unknown) (unknown) Smoking Status: (units (unknown) date) Former smoker unknown) (unknown) (no (unknown) (unknown) Smoking Status: (units (unknown) date) Former smoker unknown) (unknown) (no (unknown) (unknown) Social History (units (unknown) date) (Reviewed 08/02/21 unknown) @ 18:00 by Celestina Somers [facility]) (unknown) (no (unknown) (unknown) Solostar U-100 (units (unknown) date) Insulin) unknown) (unknown) (no (unknown) (unknown) Source: patient (units (unknown) date) and family unknown) (unknown) (no (unknown) (unknown) Stated Complaint: (units (unknown) date) numb foot unknown) right/neuropathy poss DVT (unknown) (no (unknown) (unknown) Substance Use (units ( unknown) date) Type: does not use unknown) (unknown) (no (unknown) (unknown) Temperature 97 F (units (unknown) date) L 08/02/21 16:00 unknown) (unknown) (no (unknown) (unknown) Temperature 97 F (units (unknown) date) L unknown) (unknown) (no (unknown) (unknown) Thank you for (units ( unknown) date) trusting us with unknown) your care, return for any new or worsening (unknown) (no (unknown) (unknown) This is a (units (unkn own) date) 61-year-old female unknown) type 2 diabetic who is insulin-dependent and also (unknown) (no (unknown) (unknown) This is a (units (unkno wn) date) 61-year-old female unknown) who has a history of type 2 diabetes, most recently (unknown) (no (unknown) (unknown) Nick Suarez, [place] (units (unknown) date) [Physician] - unknown) (unknown) (no (unknown) (unknown) Time Seen by (units (u nknown) date) Provider: 08/02/21 unknown) 17:34 (unknown) (no (unknown) (unknown) Trulicity and she (units (unknown) date) is checking her unknown) blood sugar every day, avoiding carbs, and (unknown) (no (unknown) (unknown) Type 2 diabetes (units (unknown) date) mellitus unknown) (unknown) (no (unknown) (unknown) Vital Signs (units (un known) date) unknown) (unknown) (no (unknown) (unknown) Vital signs: (units (u nknown) date) unknown) (unknown) (no (unknown) (unknown) also has a (units (unk nown) date) history of bipolar unknown) and is currently in remission, she is on multiple (unknown) (no (unknown) (unknown) and cooperative (units (unknown) date) unknown) (unknown) (no (unknown) (unknown) and to keep your (units (unknown) date) blood sugar within unknown) normal ranges, continue to avoid carbs as (unknown) (no (unknown) (unknown) antipsychotics but (units (unknown) date) is stable on her unknown) medications currently. Patient reports that (unknown) (no (unknown) (unknown) appointment with (units (unknown) date) Dr. Suarez from unknown) Podiatry, states that she will follow up with (unknown) (no (unknown) (unknown) appointment. Let (units (unknown) date) them know you were unknown) seen in the Emergency Department and that we (unknown) (no (unknown) (unknown) appropriate and (units (unknown) date) amenable to unknown) discharge home. Vital signs are stable on repeat (unknown) (no (unknown) (unknown) asked that you be (units (unknown) date) seen for unknown) follow-up. We will electronically transmit a record (unknown) (no (unknown) (unknown) aspirin 81 mg (units ( unknown) date) tablet,delayed 81 unknown) mg PO DAILY 02/06/19 05/09/21 (unknown) (no (unknown) (unknown) been given strict (units (unknown) date) return to ER unknown) precautions for any new or worsening symptoms. (unknown) (no (unknown) (unknown) blood sugars, (units ( unknown) date) please continue to unknown) check her blood sugar at least 4 times a day (unknown) (no (unknown) (unknown) came back was (units ( unknown) date) this morning. She unknown) declines any symptoms currently, denies any (unknown) (no (unknown) (unknown) check her blood (units (unknown) date) sugar, she denies unknown) any symptoms at this time. Patient is (unknown) (no (unknown) (unknown) citalopram 20 mg (units (unknown) date) tablet 20 mg PO unknown) DAILY #30 tab 05/09/21 (unknown) (no (unknown) (unknown) concerned it was (units (unknown) date) neuropathy, states unknown) that it took approximately 30 minutes but (unknown) (no (unknown) (unknown) concerning (units (unk nown) date) symptoms, such as unknown) [fever greater than 101F, chills, worsening pain, (unknown) (no (unknown) (unknown) conditions. (units (un known) date) unknown) (unknown) (no (unknown) (unknown) diabetes. I am (units (unknown) date) proud of you for unknown) starting to take good care of your elevated (unknown) (no (unknown) (unknown) dorsum of her (units ( unknown) date) foot underneath unknown) her flip flops line, no open wound, excoriation, (unknown) (no (unknown) (unknown) dulaglutide 1.5 (units (unknown) date) mg/0.5 mL mg unknown) SUBCUT QWEEK ml 02/06/19 05/09/21 (unknown) (no (unknown) (unknown) establish care (units (unknown) date) with one of the unknown) [facility] primary care providers. (unknown) (no (unknown) (unknown) eszopiclone 2 mg (units (unknown) date) tablet 2 mg PO unknown) BEDTIME PRN #10 tab 03/18/21 (unknown) (no (unknown) (unknown) examination is (units ( unknown) date) unremarkable. unknown) Patient has been informed of results. Patient has (unknown) (no (unknown) (unknown) glycemic control, (units (unknown) date) also has a history unknown) of bipolar and is adequately controlled on (unknown) (no (unknown) (unknown) haloperidol [From (units (unknown) date) Haldol] AdvReac unknown) Intermediate Headache Verified 05/09/21 16:05 (unknown) (no (unknown) (unknown) her A1c was over (units (unknown) date) 10, recently unknown) started on Lantus, NovoLog, and Trulicity for (unknown) (no (unknown) (unknown) her Hb A1c was (units (unknown) date) over 10, she has unknown) since been started on Lantus, NovoLog, and (unknown) (no (unknown) (unknown) him accordingly. (units (unknown) date) Patient unknown) understands to follow-up with Dr. Suarez, continue (unknown) (no (unknown) (unknown) hydroxyzine (units (un known) date) AdvReac Mild unknown) activation Verified 05/09/21 16:05 (unknown) (no (unknown) (unknown) hyperglycemia (units ( unknown) date) recently. unknown) (unknown) (no (unknown) (unknown) in her (units (unkno wn) date) extremities but it unknown) went away for a long period of time, the 1st time it (unknown) (no (unknown) (unknown) in her right foot (units (unknown) date) which happened unknown) this morning, and has since resolved. Patient (unknown) (no (unknown) (unknown) instructed. (units (un known) date) Patient unknown) understands plan and agrees to discharge home. All (unknown) (no (unknown) (unknown) insulin glargine (units (unknown) date) 100 unit/mL (3 60 unknown) unit SUBCUT BID ml 02/06/19 05/09/21 (unknown) (no (unknown) (unknown) let him know (units (u nknown) date) about your unknown) neuropathy episode, keep track of this happens again. (unknown) (no (unknown) (unknown) lisinopril (units (unk nown) date) AdvReac unknown) Intermediate cough Verified 05/09/21 16:05 (unknown) (no (unknown) (unknown) lithium carbonate (units (unknown) date) 450 mg 450 mg PO unknown) BEDTIME #30 tab 05/09/21 (unknown) (no (unknown) (unknown) mL) subcutaneous (units (unknown) date) pen (Lantus unknown) (unknown) (no (unknown) (unknown) medications as (units (unknown) date) prescribed, there unknown) are other medications that are used for (unknown) (no (unknown) (unknown) medications, she (units (unknown) date) states that she unknown) sees Dr. Pacheco from Psychiatry. Patient is (unknown) (no (unknown) (unknown) meperidine [From (units (unknown) date) Demerol] AdvReac unknown) Mild dizziness, Verified 05/09/21 16:05 (unknown) (no (unknown) (unknown) neuropathy but (units (unknown) date) since yours is unknown) intermittent it might not be as progressive. (unknown) (no (unknown) (unknown) neuropathy (units (unk nown) date) symptoms at this unknown) time, she denies any pain, she has an upcoming (unknown) (no (unknown) (unknown) of today's note (units (unknown) date) if your PCP is in unknown) our system (unknown) (no (unknown) (unknown) on [facility] who (units (unknown) date) presents to the unknown) emergency department for concern about numbness (unknown) (no (unknown) (unknown) pain, denies any (units (unknown) date) weakness with unknown) dorsiflexion or plantar extension, is able to (unknown) (no (unknown) (unknown) palpation to the (units (unknown) date) plantar surface of unknown) her foot in all areas. With palpation (unknown) (no (unknown) (unknown) persistent (units (unk nown) date) vomiting or other unknown) bothersome symptoms] (unknown) (no (unknown) (unknown) pleasant, states (units (unknown) date) that this morning unknown) she had numbness in her right foot, was (unknown) (no (unknown) (unknown) questions and (units ( unknown) date) concerns answered unknown) at this time. (unknown) (no (unknown) (unknown) release (units (unkno wn) date) unknown) (unknown) (no (unknown) (unknown) risperidone 3 mg (units (unknown) date) tablet 3 mg PO unknown) BEDTIME #30 tab 05/09/21 (unknown) (no (unknown) (unknown) subcutaneous pen (units (unknown) date) injector unknown) (unknown) (no (unknown) (unknown) tablet,extended (units (unknown) date) release unknown) (unknown) (no (unknown) (unknown) tenderness with (units (unknown) date) exam, without unknown) guarding or rebound. (unknown) (no (unknown) (unknown) tenderness, or (units (unknown) date) edema. Currently, unknown) patient does not endorse any numbness with (unknown) (no (unknown) (unknown) then her symptoms (units (unknown) date) fully went away. unknown) She states that she used to have neuropathy (unknown) (no (unknown) (unknown) toenails are (units (u nknown) date) slightly long, no unknown) open wounds, a small callus is present on the (unknown) (no (unknown) (unknown) trying to improve (units (unknown) date) her glycemic unknown) control. Patient denies any numbness or (unknown) (no (unknown) (unknown) wheezing, (units (unkn own) date) stridor, or rales. unknown) No retractions or tachypnea. (unknown) (no (unknown) (unknown) wiggle her toes, (units (unknown) date) denies any wounds unknown) on her feet, denies any significant (unknown) (no (unknown) (unknown) you transition to (units (unknown) date) a new diet to help unknown) reduce your A1c. Please take your (unknown) (no (unknown) (unknown) ziprasidone HCl (units (unknown) date) 60 mg capsule 60 unknown) mg PO QPM #30 cap 05/09/21 (unknown) (no (unknown) (unknown) zolpidem [From (units (unknown) date) Dilan] AdvReac unknown) Intermediate nightmares Verified 05/09/21 16:05 Result panel 2 (unknown) (no (unknown) (unknown) (no value) (units (unk nown) date) unknown) (unknown) (no (unknown) (unknown) *Please continue (units (unknown) date) to take your unknown) regular medications as directed. (unknown) (no (unknown) (unknown) SUBCUT QWEEK 0RF (units (unknown) date) unknown) (unknown) (no (unknown) (unknown) Date of Service: (units (unknown) date) 08/02/21 unknown) (unknown) (no (unknown) (unknown) (no value) (units (unk nown) date) unknown) (unknown) (no (unknown) (unknown) <Electronically (units (unknown) date) signed by Celestina unknown) Zhen ZABALAP Crew> (unknown) (no (unknown) (unknown) <Electronically (units (unknown) date) signed by Obey unknown) Letha Schmidt> (unknown) (no (unknown) (unknown) 08/02/21 180 (units ( unknown) date) unknown) (unknown) (no (unknown) (unknown) 08/02/21 180 (units ( unknown) date) unknown) (unknown) (no (unknown) (unknown) 2 mg PO BEDTIME (units (unknown) date) PRN (Reason: unknown) insomnia) Qty: 10 2RF (unknown) (no (unknown) (unknown) 20 mg PO DAILY (units (unknown) date) Qty: 30 5RF unknown) (unknown) (no (unknown) (unknown) 3 mg PO BEDTIME (units (unknown) date) Qty: 30 5RF unknown) (unknown) (no (unknown) (unknown) 450 mg PO BEDTIME (units (unknown) date) Qty: 30 5RF unknown) (unknown) (no (unknown) (unknown) 60 mg PO QPM Qty: (units (unknown) date) 30 5RF unknown) (unknown) (no (unknown) (unknown) 60 unit SUBCUT (units (unknown) date) BID 0RF unknown) (unknown) (no (unknown) (unknown) 81 mg PO DAILY (units (unknown) date) 0RF unknown) (unknown) (no (unknown) (unknown) Allergies (units (unkn own) date) unknown) (unknown) (no (unknown) (unknown) Emergency Report (units (unknown) date) unknown) (unknown) (no (unknown) (unknown) Home Medications (units (unknown) date) unknown) (unknown) (no (unknown) (unknown) [facility] (units (unknown) date) [address] unknown) [place] [address] (unknown) (no (unknown) (unknown) Previous Rx's (units ( unknown) date) unknown) (unknown) (no (unknown) (unknown) Vital Signs - 8 (units (unknown) date) hr unknown) (unknown) (no (unknown) (unknown) [ ] New (units (unkno wn) date) medication unknown) prescriptions sent to your pharmacy: [ ] (unknown) (no (unknown) (unknown) [ ] New (units (unkno wn) date) medication written unknown) as a paper prescription (unknown) (no (unknown) (unknown) [x ] No new (units (un known) date) medications given unknown) (unknown) (no (unknown) (unknown) nausea, (units (unkno wn) date) unknown) (unknown) (no (unknown) (unknown) vomitting (units (unkn own) date) unknown) (unknown) (no (unknown) (unknown) (no value) (units (unk nown) date) unknown) (unknown) (no (unknown) (unknown) Lantus Solostar (units (unknown) date) U-100 Insulin 100 unknown) unit/mL (3 mL) insulin pen (unknown) (no (unknown) (unknown) Trulicity 1.5 (units ( unknown) date) mg/0.5 mL pen unknown) injector (unknown) (no (unknown) (unknown) aspirin 81 mg (units ( unknown) date) tablet,delayed unknown) release (DR/EC) (unknown) (no (unknown) (unknown) citalopram 20 mg (units (unknown) date) tablet unknown) (unknown) (no (unknown) (unknown) eszopiclone 2 mg (units (unknown) date) tablet unknown) (unknown) (no (unknown) (unknown) lithium carbonate (units (unknown) date) 450 mg tablet unknown) extended release (unknown) (no (unknown) (unknown) risperidone 3 mg (units (unknown) date) tablet unknown) (unknown) (no (unknown) (unknown) ziprasidone HCl (units (unknown) date) 60 mg capsule unknown) (unknown) (no (unknown) (unknown) 08/02/21 (units (unkno wn) date) unknown) (unknown) (no (unknown) (unknown) Medication (units (unk nown) date) Instructions unknown) Recorded (unknown) (no (unknown) (unknown) Medication (units (unk nown) date) Instructions unknown) Recorded Confirmed (unknown) (no (unknown) (unknown) 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 (unknown) (no (unknown) (unknown) <Celestina Somers, (units (unknown) date) 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 - Last Filed: unknown) 08/02/21 18:04> (unknown) (no (unknown) (unknown) <Obey Schmidt, (units (unknown) date) DO - Last Filed: unknown) 08/02/21 18:07> (unknown) (no (unknown) (unknown) *If you do not (units (unknown) date) have a primary unknown) care provider please contact [phone] to (unknown) (no (unknown) (unknown) *Please follow up (units (unknown) date) with your primary unknown) care provider in 2-3 days, call for an (unknown) (no (unknown) (unknown) *Return to (units (unk nown) date) Emergency unknown) Department if you should have any new, worsening or (unknown) (no (unknown) (unknown) *What to do: (units (u nknown) date) unknown) (unknown) (no (unknown) (unknown) *You have been (units (unknown) date) diagnosed with unknown) peripheral neuropathy most likely related to your (unknown) (no (unknown) (unknown) 16:00 08/02/21 (units (unknown) date) unknown) (unknown) (no (unknown) (unknown) 17:55 (units (unkno wn) date) unknown) (unknown) (no (unknown) (unknown) [id number] (units (unkno wn) date) unknown) (unknown) (no (unknown) (unknown) Activity (units (unkno wn) date) Restrictions/Addit unknown) ional Instructions: (unknown) (no (unknown) (unknown) Age/Sex: 61 / F (units (unknown) date) unknown) (unknown) (no (unknown) (unknown) Allergy/AdvReac (units (unknown) date) Type Severity unknown) Reaction Status Date / Time (unknown) (no (unknown) (unknown) Bipolar 1 (units (unkn own) date) disorder, unknown) depressed, mild (unknown) (no (unknown) (unknown) Bipolar disorder, (units (unknown) date) current episode unknown) manic severe with psychotic features (unknown) (no (unknown) (unknown) Blood Pressure (units (unknown) date) 134/60 08/02/21 unknown) 16:00 (unknown) (no (unknown) (unknown) Blood Pressure (units (unknown) date) 134/60 132/74 unknown) (unknown) (no (unknown) (unknown) Cardio: denies (units (unknown) date) chest pain, unknown) palpitations (unknown) (no (unknown) (unknown) Cardiovascular: (units (unknown) date) regular rate and unknown) rhythm, no peripheral edema, warm extremities (unknown) (no (unknown) (unknown) Chief Complaint: (units (unknown) date) Extremity Injury, unknown) Lower (unknown) (no (unknown) (unknown) Clinical (units (unkno wn) date) Impression: unknown) (unknown) (no (unknown) (unknown) Cosign (units (unkno wn) date) unknown) (unknown) (no (unknown) (unknown) Course (units (unkno wn) date) unknown) (unknown) (no (unknown) (unknown) : 1960 (units (unknown) date) Acct:[id number] unknown) (unknown) (no (unknown) (unknown) Departure (units (unkn own) date) unknown) (unknown) (no (unknown) (unknown) Discharge Plan (units (unknown) date) unknown) (unknown) (no (unknown) (unknown) Dr Schmidt Co-Sign (units (unknown) date) Statement: I was unknown) available for consultation during this (unknown) (no (unknown) (unknown) 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 unknown) (unknown) (no (unknown) (unknown) ED Attending (units (u nknown) date) Cosignature unknown) Attestation: (unknown) (no (unknown) (unknown) ER Physician: (units ( unknown) date) Crew,Celestina Zhen unknown) 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 (unknown) (no (unknown) (unknown) Exam (units (unkno wn) date) unknown) (unknown) (no (unknown) (unknown) Exam Narrative: (units (unknown) date) unknown) (unknown) (no (unknown) (unknown) Eyes: denies (units (u nknown) date) visual changes, unknown) eye pain (unknown) (no (unknown) (unknown) Eyes: equal round (units (unknown) date) and reactive, unknown) EOMI, conjunctiva normal (unknown) (no (unknown) (unknown) GI: abdomen soft, (units (unknown) date) nontender to unknown) palpation, nondistended, no masses, no exquisite (unknown) (no (unknown) (unknown) GI: denies (units (unk nown) date) abdominal pain, unknown) nausea, vomiting, or diarrhea (unknown) (no (unknown) (unknown) : denies (units (unk nown) date) dysuria, hematuria unknown) or flank pain (unknown) (no (unknown) (unknown) General (units (unkno wn) date) unknown) (unknown) (no (unknown) (unknown) General: (units (unkno wn) date) cooperative, unknown) comfortable, in no acute distress, well groomed (unknown) (no (unknown) (unknown) General: denies (units (unknown) date) fever, chills unknown) (unknown) (no (unknown) (unknown) HPI - Extremity (units (unknown) date) Injury (Lower) unknown) (unknown) (no (unknown) (unknown) HPI Narrative: (units (unknown) date) unknown) (unknown) (no (unknown) (unknown) Head/Neck: denies (units (unknown) date) headache, neck unknown) pain (unknown) (no (unknown) (unknown) Head: atraumatic, (units (unknown) date) symmetrical facial unknown) expressions (unknown) (no (unknown) (unknown) History of (units (unk nown) date) Present Illness unknown) (unknown) (no (unknown) (unknown) Independently (units ( unknown) date) reviewed vitals unknown) signs and nursing notes. (unknown) (no (unknown) (unknown) Initial Vital (units ( unknown) date) Signs unknown) (unknown) (no (unknown) (unknown) Initial Vital (units ( unknown) date) Signs: unknown) (unknown) (no (unknown) (unknown) Instructions: DI (units (unknown) date) for Diabetic unknown) Neuropathy, DI for Peripheral Neuropathy (unknown) (no (unknown) (unknown) MDM - Extremity (units (unknown) date) Injury (Lower) unknown) (unknown) (no (unknown) (unknown) MDM Narrative (units ( unknown) date) unknown) (unknown) (no (unknown) (unknown) MSK: denies new (units (unknown) date) joint pain, muscle unknown) weakness or swelling (unknown) (no (unknown) (unknown) MSK: moves all (units (unknown) date) extremities, unknown) neurovascularly intact, no weakness, normal tone (unknown) (no (unknown) (unknown) Medical History (units (unknown) date) (Reviewed 08/02/21 unknown) @ 18:00 by Celestina Somers [facility]) (unknown) (no (unknown) (unknown) Medical decision (units (unknown) date) making narrative: unknown) (unknown) (no (unknown) (unknown) Mode of arrival: (units (unknown) date) Ambulatory unknown) (unknown) (no (unknown) (unknown) Mouth/Throat: (units ( unknown) date) moist mucus unknown) membranes (unknown) (no (unknown) (unknown) Narrative (units (unkn own) date) unknown) (unknown) (no (unknown) (unknown) Narrative: (units (unk nown) date) unknown) (unknown) (no (unknown) (unknown) Neck: supple (units (u nknown) date) unknown) (unknown) (no (unknown) (unknown) Neuro: denies (units ( unknown) date) numbness, unknown) tingling, dizziness (unknown) (no (unknown) (unknown) Neuro: normal (units ( unknown) date) speech and unknown) cognition, A+O x3 (unknown) (no (unknown) (unknown) No Action (units (unkn own) date) unknown) (unknown) (no (unknown) (unknown) Nose: nares (units (un known) date) patent, no unknown) rhinorrhea (unknown) (no (unknown) (unknown) Patient (units (unkno wn) date) Disposition: Home unknown) (unknown) (no (unknown) (unknown) Patient History (units (unknown) date) unknown) (unknown) (no (unknown) (unknown) Patient (units (unkno wn) date) understands to unknown) follow up closely with outpatient providers as (unknown) (no (unknown) (unknown) Patient: (units (unkno wn) date) Maribeth Haynes unknown) MR#: [id number] (unknown) (no (unknown) (unknown) Please follow-up (units (unknown) date) with Dr. Suarez unknown) at your scheduled podiatry appointment, please (unknown) (no (unknown) (unknown) Prescriptions: (units (unknown) date) unknown) (unknown) (no (unknown) (unknown) Psych: mental (units ( unknown) date) status is grossly unknown) normal, congruent mood, normal affect, pleasant (unknown) (no (unknown) (unknown) Pulse Oximetry (units (unknown) date) 99 08/02/21 unknown) 16:00 (unknown) (no (unknown) (unknown) Pulse Oximetry 99 (units (unknown) date) 98 unknown) (unknown) (no (unknown) (unknown) Pulse Rate 45 L (units (unknown) date) 08/02/21 16:00 unknown) (unknown) (no (unknown) (unknown) Pulse Rate 45 L (units (unknown) date) 80 unknown) (unknown) (no (unknown) (unknown) Referrals: (units (unk nown) date) unknown) (unknown) (no (unknown) (unknown) Related Data (units (u nknown) date) unknown) (unknown) (no (unknown) (unknown) Respiratory Rate (units (unknown) date) 17 08/02/21 unknown) 16:00 (unknown) (no (unknown) (unknown) Respiratory Rate (units (unknown) date) 17 18 unknown) (unknown) (no (unknown) (unknown) Respiratory: (units (u nknown) date) denies shortness unknown) of breath, cough (unknown) (no (unknown) (unknown) Respiratory: (units (u nknown) date) normal effort, unknown) able to speak in complete sentences, no audible (unknown) (no (unknown) (unknown) Review of Systems (units (unknown) date) unknown) (unknown) (no (unknown) (unknown) Signed By: (units (unk nown) date) unknown) (unknown) (no (unknown) (unknown) Skin: brisk (units (un known) date) capillary refill, unknown) no rash, no erythema, patient's feet are dry, (unknown) (no (unknown) (unknown) Skin: denies (units (u nknown) date) rash, itching or unknown) wound (unknown) (no (unknown) (unknown) Smoking Status: (units (unknown) date) Former smoker unknown) (unknown) (no (unknown) (unknown) Smoking Status: (units (unknown) date) Former smoker unknown) (unknown) (no (unknown) (unknown) Social History (units (unknown) date) (Reviewed 08/02/21 unknown) @ 18:00 by Celestina Somers [facility]) (unknown) (no (unknown) (unknown) Solostar U-100 (units (unknown) date) Insulin) unknown) (unknown) (no (unknown) (unknown) Source: patient (units (unknown) date) and family unknown) (unknown) (no (unknown) (unknown) Stated Complaint: (units (unknown) date) numb foot unknown) right/neuropathy poss DVT (unknown) (no (unknown) (unknown) Substance Use (units ( unknown) date) Type: does not use unknown) (unknown) (no (unknown) (unknown) Temperature 97 F (units (unknown) date) L 08/02/21 16:00 unknown) (unknown) (no (unknown) (unknown) Temperature 97 F (units (unknown) date) L 97 F L unknown) (unknown) (no (unknown) (unknown) Thank you for (units ( unknown) date) trusting us with unknown) your care, return for any new or worsening (unknown) (no (unknown) (unknown) This is a (units (unkn own) date) 61-year-old female unknown) type 2 diabetic who is insulin-dependent and also (unknown) (no (unknown) (unknown) This is a (units (unkno wn) date) 61-year-old female unknown) who has a history of type 2 diabetes, most recently (unknown) (no (unknown) (unknown) Nick Suarez DPM (units (unknown) date) [Physician] - unknown) (unknown) (no (unknown) (unknown) Time Seen by (units (u nknown) date) Provider: 08/02/21 unknown) 17:34 (unknown) (no (unknown) (unknown) Trulicity and she (units (unknown) date) is checking her unknown) blood sugar every day, avoiding carbs, and (unknown) (no (unknown) (unknown) Type 2 diabetes (units (unknown) date) mellitus unknown) (unknown) (no (unknown) (unknown) Visit Report (units (u nknown) date) Forms: Patient unknown) Portal/API (unknown) (no (unknown) (unknown) Vital Signs (units (un known) date) unknown) (unknown) (no (unknown) (unknown) Vital signs: (units (u nknown) date) unknown) (unknown) (no (unknown) (unknown) administrative (units (unknown) date) purposes only. I unknown) did not have direct contact with this patient (unknown) (no (unknown) (unknown) also has a (units (unk nown) date) history of bipolar unknown) and is currently in remission, she is on multiple (unknown) (no (unknown) (unknown) and cooperative (units (unknown) date) unknown) (unknown) (no (unknown) (unknown) and to keep your (units (unknown) date) blood sugar within unknown) normal ranges, continue to avoid carbs as (unknown) (no (unknown) (unknown) antipsychotics but (units (unknown) date) is stable on her unknown) medications currently. Patient reports that (unknown) (no (unknown) (unknown) appointment with (units (unknown) date) Dr. Suarez from unknown) Podiatry, states that she will follow up with (unknown) (no (unknown) (unknown) appointment. Let (units (unknown) date) them know you were unknown) seen in the Emergency Department and that we (unknown) (no (unknown) (unknown) appropriate and (units (unknown) date) amenable to unknown) discharge home. Vital signs are stable on repeat (unknown) (no (unknown) (unknown) asked that you be (units (unknown) date) seen for unknown) follow-up. We will electronically transmit a record (unknown) (no (unknown) (unknown) aspirin 81 mg (units ( unknown) date) tablet,delayed 81 unknown) mg PO DAILY 02/06/19 05/09/21 (unknown) (no (unknown) (unknown) been given strict (units (unknown) date) return to ER unknown) precautions for any new or worsening symptoms. (unknown) (no (unknown) (unknown) blood sugars, (units ( unknown) date) please continue to unknown) check her blood sugar at least 4 times a day (unknown) (no (unknown) (unknown) came back was (units ( unknown) date) this morning. She unknown) declines any symptoms currently, denies any (unknown) (no (unknown) (unknown) check her blood (units (unknown) date) sugar, she denies unknown) any symptoms at this time. Patient is (unknown) (no (unknown) (unknown) citalopram 20 mg (units (unknown) date) tablet 20 mg PO unknown) DAILY #30 tab 05/09/21 (unknown) (no (unknown) (unknown) concerned it was (units (unknown) date) neuropathy, states unknown) that it took approximately 30 minutes but (unknown) (no (unknown) (unknown) concerning (units (unk nown) date) symptoms, such as unknown) [fever greater than 101F, chills, worsening pain, (unknown) (no (unknown) (unknown) conditions. (units (un known) date) unknown) (unknown) (no (unknown) (unknown) diabetes. I am (units (unknown) date) proud of you for unknown) starting to take good care of your elevated (unknown) (no (unknown) (unknown) dorsum of her (units ( unknown) date) foot underneath unknown) her flip flops line, no open wound, excoriation, (unknown) (no (unknown) (unknown) dulaglutide 1.5 (units (unknown) date) mg/0.5 mL mg unknown) SUBCUT QWEEK ml 02/06/19 05/09/21 (unknown) (no (unknown) (unknown) during this (units (un known) date) visit. They were unknown) seen independently by the [facility]. (unknown) (no (unknown) (unknown) establish care (units (unknown) date) with one of the unknown) [facility] primary care providers. (unknown) (no (unknown) (unknown) eszopiclone 2 mg (units (unknown) date) tablet 2 mg PO unknown) BEDTIME PRN #10 tab 03/18/21 (unknown) (no (unknown) (unknown) examination is (units ( unknown) date) unremarkable. unknown) Patient has been informed of results. Patient has (unknown) (no (unknown) (unknown) glycemic control, (units (unknown) date) also has a history unknown) of bipolar and is adequately controlled on (unknown) (no (unknown) (unknown) haloperidol [From (units (unknown) date) Haldol] AdvReac unknown) Intermediate Headache Verified 05/09/21 16:05 (unknown) (no (unknown) (unknown) her A1c was over (units (unknown) date) 10, recently unknown) started on Lantus, NovoLog, and Trulicity for (unknown) (no (unknown) (unknown) her Hb A1c was (units (unknown) date) over 10, she has unknown) since been started on Lantus, NovoLog, and (unknown) (no (unknown) (unknown) him accordingly. (units (unknown) date) Patient unknown) understands to follow-up with Dr. Suarez, continue (unknown) (no (unknown) (unknown) hydroxyzine (units (un known) date) AdvReac Mild unknown) activation Verified 05/09/21 16:05 (unknown) (no (unknown) (unknown) hyperglycemia (units ( unknown) date) recently. unknown) (unknown) (no (unknown) (unknown) in her (units (unkno wn) date) extremities but it unknown) went away for a long period of time, the 1st time it (unknown) (no (unknown) (unknown) in her right foot (units (unknown) date) which happened unknown) this morning, and has since resolved. Patient (unknown) (no (unknown) (unknown) instructed. (units (un known) date) Patient unknown) understands plan and agrees to discharge home. All (unknown) (no (unknown) (unknown) insulin glargine (units (unknown) date) 100 unit/mL (3 60 unknown) unit SUBCUT BID ml 02/06/19 05/09/21 (unknown) (no (unknown) (unknown) let him know (units (u nknown) date) about your unknown) neuropathy episode, keep track of this happens again. (unknown) (no (unknown) (unknown) lisinopril (units (unk nown) date) AdvReac unknown) Intermediate cough Verified 05/09/21 16:05 (unknown) (no (unknown) (unknown) lithium carbonate (units (unknown) date) 450 mg 450 mg PO unknown) BEDTIME #30 tab 05/09/21 (unknown) (no (unknown) (unknown) mL) subcutaneous (units (unknown) date) pen (Lantus unknown) (unknown) (no (unknown) (unknown) medications as (units (unknown) date) prescribed, there unknown) are other medications that are used for (unknown) (no (unknown) (unknown) medications, she (units (unknown) date) states that she unknown) sees Dr. Pacheco from Psychiatry. Patient is (unknown) (no (unknown) (unknown) meperidine [From (units (unknown) date) Demerol] AdvReac unknown) Mild dizziness, Verified 05/09/21 16:05 (unknown) (no (unknown) (unknown) neuropathy but (units (unknown) date) since yours is unknown) intermittent it might not be as progressive. (unknown) (no (unknown) (unknown) neuropathy (units (unk nown) date) symptoms at this unknown) time, she denies any pain, she has an upcoming (unknown) (no (unknown) (unknown) of today's note (units (unknown) date) if your PCP is in unknown) our system (unknown) (no (unknown) (unknown) on Trulicity who (units (unknown) date) presents to the unknown) emergency department for concern about numbness (unknown) (no (unknown) (unknown) pain, denies any (units (unknown) date) weakness with unknown) dorsiflexion or plantar extension, is able to (unknown) (no (unknown) (unknown) palpation to the (units (unknown) date) plantar surface of unknown) her foot in all areas. With palpation (unknown) (no (unknown) (unknown) patient's (units (unkn own) date) emergency unknown) department visit. This chart is signed by myself for (unknown) (no (unknown) (unknown) persistent (units (unk nown) date) vomiting or other unknown) bothersome symptoms] (unknown) (no (unknown) (unknown) pleasant, states (units (unknown) date) that this morning unknown) she had numbness in her right foot, was (unknown) (no (unknown) (unknown) questions and (units ( unknown) date) concerns answered unknown) at this time. (unknown) (no (unknown) (unknown) release (units (unkno wn) date) unknown) (unknown) (no (unknown) (unknown) risperidone 3 mg (units (unknown) date) tablet 3 mg PO unknown) BEDTIME #30 tab 05/09/21 (unknown) (no (unknown) (unknown) subcutaneous pen (units (unknown) date) injector unknown) (unknown) (no (unknown) (unknown) tablet,extended (units (unknown) date) release unknown) (unknown) (no (unknown) (unknown) tenderness with (units (unknown) date) exam, without unknown) guarding or rebound. (unknown) (no (unknown) (unknown) tenderness, or (units (unknown) date) edema. Currently, unknown) patient does not endorse any numbness with (unknown) (no (unknown) (unknown) then her symptoms (units (unknown) date) fully went away. unknown) She states that she used to have neuropathy (unknown) (no (unknown) (unknown) toenails are (units (u nknown) date) slightly long, no unknown) open wounds, a small callus is present on the (unknown) (no (unknown) (unknown) trying to improve (units (unknown) date) her glycemic unknown) control. Patient denies any numbness or (unknown) (no (unknown) (unknown) wheezing, (units (unkn own) date) stridor, or rales. unknown) No retractions or tachypnea. (unknown) (no (unknown) (unknown) wiggle her toes, (units (unknown) date) denies any wounds unknown) on her feet, denies any significant (unknown) (no (unknown) (unknown) you transition to (units (unknown) date) a new diet to help unknown) reduce your A1c. Please take your (unknown) (no (unknown) (unknown) ziprasidone HCl (units (unknown) date) 60 mg capsule 60 unknown) mg PO QPM #30 cap 05/09/21 (unknown) (no (unknown) (unknown) zolpidem [From (units (unknown) date) Ambien] AdvReac unknown) Intermediate nightmares Verified 05/09/21 16:05 Social History date description facility (no date) Ex-smoker (finding) [facility] Vital Signs date measurement value units +0000 BMI BMI 24.5 kg/m2 +0000 BP_diastolic BP_diastolic 74 mm[H g] +0000 BP_systolic BP_systolic 132 mm[Hg] +0000 heart_rate heart_rate 80 /min +0000 height_metric height_metric 147.32 cm +0000 height_standard height_standard 58 in +0000 respiration_rate respiration_rate 18 /min +0000 temperature_metric temperature_metric 36.11 C +0000 temperature_standard temperature_standard 9 7 F +0000 weight_metric weight_metric 24.22 kg +0000 weight_standard weight_standard 53.39 lb
[2021-09-05] MEDS ORDERED: KETOROLAC 30 MG/ML VIAL IVP STA (22:30)
[2021-09-05] MEDS ORDERED: SODIUM CHLORIDE 0.9% 1,000 ML IV STA (22:46)
[2021-09-05 22:58] LABS: BASOPHILS % (AUTO) 0.5 %; EOSINOPHILS # (AUTO) 0.1 10^3/uL (0.0-0.7); EOSINOPHILS % (AUTO) 1.5 %; HGB - HEMOGLOBIN 13.3 g/dL (12.0-16.0); LYMPHOCYTES % (AUTO) 12.7 %; MEAN CORPUSCULAR HEMOGLOBIN 28.6 pg (27.0-31.0); MEAN CORPUSCULAR HGB CONC 33.3 g/dL (32.0-36.0); MONOCYTES # (AUTO) 0.6 10^3/uL (0.0-1.0); MONOCYTES % (AUTO) 8.1 %; NEUTROPHILS # (AUTO) 5.8 10^3/uL (1.5-6.6); NEUTROPHILS % (AUTO) 76.9 %; PLT - PLATELET COUNT 156 10^3/uL (130-450); RED BLOOD COUNT 4.65 10^6/uL (4.20-5.40); RED CELL DISTRIBUTION WIDTH 13.3 % (12.0-15.0); WHITE BLOOD COUNT 7.5 x10^3/uL (4.8-10.8)
[2021-09-05 23:07] LABS: ALBUMIN 3.9 g/dL (3.2-5.5); ALBUMIN/GLOBULIN RATIO 1.4 (1.0-2.2); BILIRUBIN,TOTAL 0.5 mg/dL (0.2-1.0); CALCIUM 9.1 mg/dL (8.5-10.3); CREATININE 0.7 mg/dL (0.4-1.0); POTASSIUM 3.9 mmol/L (3.5-5.0); TOTAL PROTEIN 6.7 g/dL (6.7-8.2)
[2021-09-05 23:57] LABS: BILIRUBIN,URINE NEGATIVE (NEGATIVE); GLUCOSE, URINE (UA) >=1000 mg/dL (NEGATIVE); KETONES,URINE (UA) NEGATIVE (NEGATIVE); LEUKOCYTE ESTERASE, URINE NEGATIVE (NEGATIVE); NITRITE,URINE NEGATIVE (NEGATIVE); OCCULT BLOOD,URINE NEGATIVE (NEGATIVE); PROTEIN,URINE TRACE mg/dL (NEGATIVE); UROBILINOGEN,URINE 0.2 (NORMAL) E.U./dL (NORMAL)
[2021-09-05 23:58] LABS: CLARITY,URINE CLEAR (CLEAR)
--- NOTE | 2021-09-06 01:01 | CT Report ---
PROCEDURE: Abdomen/Pelvis WO INDICATIONS: epigastric/RUQ pain/lipase 190 TECHNIQUE: Noncontrast 5 mm thick sections acquired from the diaphragms to the symphysis. 5 mm coronal and sagi ttal reformats were then performed. For radiation dose reduction, the following was used: automated exposure control, adjustment of mA and/or kV according to patient size. COMPARISON: Concurrent ultrasound abdomen. FINDINGS: Image quality: Excellent. Lung bases: Unremarkable. Heart: Heart is normal in size. ABDOMEN: Liver:Noncontrast evaluation of the liver demonstrates no discrete mass Gallbladder: Within normal limits without calcified gallstones. Biliary ducts: No biliary ductal dilatation. Pancreas:No peripancreatic fat stranding or fluid to suggest acute pancreatitis.No loculated peripa ncreatic fluid collections. Spleen: Normal in size. Adrenal Glands: No adrenal nodules. Kidneys and Ureters: No hydronephrosis or nephrolithiasis. Stomach and Bowel: Stomach, small bowel loops, and colon are normal in caliber and wall thickness. T he appendix is normal in appearance. Peritoneum: No abnormal intraperitoneal fluid. No free air. Ventral Wall: No hernia. Abdominal Nodes: No retroperitoneal or mesenteric adenopathy by size criteria. Vessels: Aorta and inferior vena cava are normal in size. PELVIS: Pelvic Organs: Unremarkable. Bladder: Unremarkable. Pelvic Nodes: No enlarged lymph nodes. Miscellaneous: No inguinal hernias are seen. Bones: Visualized osseous structures demonstrate no suspicious focal lesions. IMPRESSION: 1. No definite acute intra-abdominal abnormality. Specifically, no evidence of acute appendicitis. 2. No CT evidence of acute pancreatitis. 3. No nephrolithiasis or obstructive uropathy. Reviewed by: Shaquille Knowles MD on 09/06/2021 12:59 AM PDT Approved by: Shaquille Knowles MD on 09/06/2021 12:59 AM PDT Station ID: [id number]
--- NOTE | 2021-09-06 01:07 | Ultrasound Report ---
PROCEDURE: Abdomen Limited INDICATIONS: RUQ pain TECHNIQUE: Real-time focused scanning was performed of the abdomen, with image documentation. COMPARISON: Concurrent CT of the abdomen and pelvis FINDINGS: The liver demonstrates no discrete hepatic mass. The main portal vein appears patent and demonstrates hepatopedal flow. There is slightly hyperechoic dependent filling defect within the gallbladder suggestive of biliary s ludge. No shadowing gallstones identified. No pericholecystic fluid or definite gallbladder wall thic [place]. No intra or extrahepatic biliary ductal dilatation. The visualized common bile duct measures up to 0. 3 cm. The pancreas was not well seen sonographically. The right kidney measures up to 9.9 cm. No hydronephrosis. A few right renal cysts are demonstrated w ith the largest measuring up to 2.2 cm. IMPRESSION: 1. Slightly hyperechoic filling defect in the gallbladder suggestive of biliary sludge. No shadowing gallstones or definite evidence of cholecystitis. 2. No biliary ductal dilatation. Reviewed by: Shaquille Knowles MD on 09/06/2021 1:06 AM PDT Approved by: Shaquille Knowles MD on 09/06/2021 1:06 AM PDT Station ID: [id number]
--- NOTE | 2021-09-06 01:36 | ED Physician Documentation ---
PD HPI ABD PAIN - Stated complaint Stated Complaint: R ABD PX - Chief complaint Chief Complaint: Abd Pain - History obtained from History obtained from: Patient - Additional information Additional information: Patient is a 61-year-old female with a history of diabetes, hyperlipidemia and bipolar presenting for evaluation of right upper quadrant pain that has been present since this morning. It is constant. She describes it as achiness. No associated nausea or vomiting. Denies diarrhea or constipation. Denies dysuria or hematuria. Pain does not radiate. It is not worse after eating or with anything else that she has noted. Nothing makes it better. She denies a history of similar symptoms. She has a history of a tubal ligation but denies other abdominal surgeries. Review of Systems Constitutional: denies: Fever Cardiac: denies: Chest pain / pressure, Palpitations Respiratory: denies: Dyspnea, Cough GI: reports: Abdominal Pain. denies: Nausea, Vomiting, Diarrhea : denies: Dysuria Skin: denies: Rash Musculoskeletal: denies: Back pain Neurologic: denies: Headache PD PAST MEDICAL HISTORY - Past Medical History Cardiovascular: High cholesterol Respiratory: None Neuro: None Endocrine/Autoimmune: Type 2 diabetes GI: GERD PRODUCT SUPPORT MANAGER: None : None HEENT: None Psych: Bipolar disorder Musculoskeletal: None - Past Surgical History Past Surgical History: Yes /PRODUCT SUPPORT MANAGER: Tubal ligation - Present Medications Home Medications: Ambulatory Orders Medication Instructions Recorded Confirmed Aspirin [Aspirin EC] 81 mg PO DAILY 09/13/14 09/13/14 Atorvastatin [Lipitor] 20 mg PO DAILY 09/13/14 09/13/14 Citalopram [CeleXA] 20 mg PO DAILY 09/13/14 09/13/14 Eszopiclone [Lunesta] 2 mg PO DAILY PRN 09/13/14 09/13/14 Insulin Aspart (Vial) [NovoLOG] 60 units SUBQ AC 09/13/14 09/13/14 Insulin Glargine,Hum.rec.anlog 80 units SUBQ BID 09/13/14 09/13/14 [Lantus] [place] Carbonate 450 mg PO DAILY 09/13/14 09/13/14 Omeprazole [PriLOSEC] 20 mg PO DAILY 09/13/14 09/13/14 Oxybutynin [Ditropan] 5 mg PO DAILY 09/13/14 09/13/14 Ziprasidone [Geodon] 60 mg PO DAILY 09/13/14 09/13/14 risperiDONE [RisperDAL] 1.5 mg PO BID 09/13/14 09/13/14 Blood Sugar Diagnostic [Glucometer 1 each MC BID #60 strip 09/04/19 Strips] Blood-Glucose Meter [Glucometer] 1 each MC BID #1 each 09/04/19 Fluconazole [Diflucan] 150 mg PO ONCE #1 tablet 09/04/19 Phenazopyridine HCl [Pyridium] 100 mg PO TID PRN #15 tablet 09/04/19 metroNIDAZOLE [Flagyl] 500 mg PO BID #14 tablet 09/04/19 Naproxen Sodium [Anaprox Ds] 550 mg PO BID #20 tablet 04/03/20 Ibuprofen [Motrin] 800 mg PO Q8H PRN #30 tablet 04/18/21 methocarbamoL [Robaxin] 500 mg PO Q6H PRN #20 tablet 04/18/21 - Allergies Allergies/Adverse Reactions: Allergies Allergy/AdvReac Type Severity Reaction Status Date / Time lisinopril AdvReac Respiratory Verified 04/18/21 16:15 meperidine [From Demerol] AdvReac Dizziness Verified 04/18/21 16:15 - Social History Does the pt smoke?: No Smoking Status: Never smoker Does the pt drink ETOH?: No Does the pt have substance abuse?: No - Immunizations Immunizations are current?: Yes - POLST Patient has POLST: No PD ED PE NORMAL - General General: Alert and oriented X 3, No acute distress, Well developed/nourished - HEENT HEENT: Atraumatic, Moist mucous membranes - Neck Neck: Supple, no meningeal sign - Cardiac Cardiac: RRR, No murmur, Strong equal pulses - Respiratory Respiratory: No respiratory distress, Clear bilaterally - Abdomen Abdomen: Normal bowel sounds, Soft, Non distended, Other (Right upper quadrant tenderness to palpation, no rebound, no guarding, no peritonitis) - Back Back: No CVA TTP - Derm Derm: Warm and dry - Extremities Extremities: No edema - Neuro Neuro: Normal speech Results - Vitals Vitals: Vital Signs - 24 hr 09/05/21 09/05/21 09/06/21 21:41 23:56 01:14 Temperature 36.3 C L Heart Rate 143 H 55 L 70 Respiratory 16 21 24 Rate Blood Pressure 168/48 H 165/74 H 175/82 H O2 Saturation 100 98 97 09/06/21 01:43 Temperature Heart Rate 71 Respiratory 18 Rate Blood Pressure 165/81 H O2 Saturation 97 Oxygen O2 Source Room air - Labs Labs: Laboratory Tests 09/05/21 09/05/21 09/05/21 22:16 22:37 22:37 WBC 7.5 RBC 4.65 Hgb 13.3 Hct 40.0 MCV 86.0 MCH 28.6 MCHC 33.3 RDW 13.3 Plt Count 156 MPV 11.0 H Neut # (Auto) 5.8 Lymph # (Auto) 1.0 L [place] # (Auto) 0.6 Eos # (Auto) 0.1 Baso # (Auto) 0.0 Absolute Nucleated RBC 0.00 Nucleated RBC % 0.0 Sodium 133 L Potassium 3.9 Chloride 104 Carbon Dioxide 22 Anion Gap 7.0 BUN 15 Creatinine 0.7 Estimated GFR (MDRD) 85 L Glucose 263 H Calcium 9.1 Total Bilirubin 0.5 AST 15 ALT 16 Alkaline Phosphatase 83 Total Protein 6.7 Albumin 3.9 Globulin 2.8 Albumin/Globulin Ratio 1.4 Lipase 191 H Urine Color YELLOW Urine Clarity CLEAR Urine pH 6.0 Ur Specific [place] 1.020 Urine Protein TRACE Urine Glucose (UA) >=1000 H Urine Ketones NEGATIVE Urine Occult Blood NEGATIVE Urine Nitrite NEGATIVE Urine Bilirubin NEGATIVE Urine Urobilinogen 0.2 (NORMAL) Ur Leukocyte Esterase NEGATIVE Ur Microscopic Review NOT INDICATED Urine Culture Comments NOT INDICATED PD MEDICAL DECISION MAKING - ED course Complexity details: reviewed results, re-evaluated patient, d/w patient ED course: Patient evaluated for right upper quadrant pain. Initial vitals with heart rate in the 140s but upon my evaluation and through the remainder of her ED course heart rate is normal. She does not appear septic. Her EKG with a sinus rhythm. Labs reviewed. Mild elevation to lipase. Ultrasound demonstrates biliary sludge. CT scan without findings of pancreatitis or appendicitis.Does Not appear to have cholecystitis at this time. Pain is reasonably controlled with Toradol. Patient advised on following a low-fat diet and follow-up with primary care doctor or general surgeon.No chest pain or shortness of breath to suggest cardiac etiology.She is aware of return precautions. Departure - Departure Disposition: 01 Home, Self Care Clinical Impression: Biliary sludge determined by ultrasound, RUQ abdominal pain Condition: Stable Instructions: ED Abdominal Pain Female Non-Specific Abdominal Pain, ED Diet Low Fat Comments: You were evaluated For pain to your right upper abdomen and found to have sludge in your gallbladder. This is a buildup of cholesterol and calcium deposits. I would recommend a low-fat diet to help prevent this buildup. A CT scan was also done and does not show signs of pancreatitis or appendicitis. At this time there is no need for an emergent surgery to have your gallbladder removed but I would recommend close follow-up with your primary care doctor. If it anytime you have worsening pain, vomiting or any other concerns please return to the emergency department. Discharge Date/Time: 09/06/21 01:53
[2021-09-06 01:45] VITALS: BP 165/81
== END 2021-09-06 01:53 | disposition home or self-care (01) ==
LOC: ED 21:35
DX: R10.11 Right upper quadrant pain (principal); E11.9 Type 2 diabetes mellitus without complications; Z79.4 Long term (current) use of insulin
CPT/HCPCS: 36415; 80053; 81001; 81003; 83690; 85025; 87086; 93005; 96374; 99284

== ENCOUNTER 2021-10-29 17:45 | Emergency (ER) | payer OTHER ==
--- NOTE | 2021-10-29 18:04 | ED Physician Documentation ---
PD HPI FEMALE - Stated complaint Stated Complaint: BLADDER INFECTION - Chief complaint Chief Complaint: Abd Pain PD PAST MEDICAL HISTORY - Past Medical History Cardiovascular: High cholesterol Respiratory: None Neuro: None Endocrine/Autoimmune: Type 2 diabetes GI: GERD CREDIT HISTORIAN: None : None HEENT: None Psych: Bipolar disorder Musculoskeletal: None - Past Surgical History Past Surgical History: Yes /CREDIT HISTORIAN: Tubal ligation - Present Medications Home Medications: Ambulatory Orders Medication Instructions Recorded Confirmed Aspirin [Aspirin EC] 81 mg PO DAILY 09/13/14 09/13/14 Atorvastatin [Lipitor] 20 mg PO DAILY 09/13/14 09/13/14 Citalopram [CeleXA] 20 mg PO DAILY 09/13/14 09/13/14 Eszopiclone [Lunesta] 2 mg PO DAILY PRN 09/13/14 09/13/14 Insulin Aspart (Vial) [NovoLOG] 60 units SUBQ AC 09/13/14 09/13/14 Insulin Glargine,Hum.rec.anlog 80 units SUBQ BID 09/13/14 09/13/14 [Lantus] [place] Carbonate 450 mg PO DAILY 09/13/14 09/13/14 Omeprazole [PriLOSEC] 20 mg PO DAILY 09/13/14 09/13/14 Oxybutynin [Ditropan] 5 mg PO DAILY 09/13/14 09/13/14 Ziprasidone [Geodon] 60 mg PO DAILY 09/13/14 09/13/14 risperiDONE [RisperDAL] 1.5 mg PO BID 09/13/14 09/13/14 Blood Sugar Diagnostic [Glucometer 1 each BID #60 strip 09/04/19 Strips] Blood-Glucose Meter [Glucometer] 1 each BID #1 each 09/04/19 Fluconazole [Diflucan] 150 mg PO ONCE #1 tablet 09/04/19 Phenazopyridine HCl [Pyridium] 100 mg PO TID PRN #15 tablet 09/04/19 metroNIDAZOLE [Flagyl] 500 mg PO BID #14 tablet 09/04/19 Naproxen Sodium [Anaprox Ds] 550 mg PO BID #20 tablet 04/03/20 Ibuprofen [Motrin] 800 mg PO Q8H PRN #30 tablet 04/18/21 methocarbamoL [Robaxin] 500 mg PO Q6H PRN #20 tablet 04/18/21 - Allergies Allergies/Adverse Reactions: Allergies Allergy/AdvReac Type Severity Reaction Status Date / Time lisinopril AdvReac Respiratory Verified 04/18/21 16:15 meperidine [From Demerol] AdvReac Dizziness Verified 04/18/21 16:15 - Social History Does the pt smoke?: No Smoking Status: Never smoker Does the pt drink ETOH?: No Does the pt have substance abuse?: No - Immunizations Immunizations are current?: Yes - POLST Patient has POLST: No Results - Vitals Vitals: Oxygen O2 Source Room air - Labs Labs: Laboratory Tests 10/29/21 10/29/21 10/29/21 18:12 18:12 18:25 WBC 8.2 RBC 4.39 Hgb 12.3 Hct 37.2 MCV 84.7 MCH 28.0 MCHC 33.1 RDW 13.6 Plt Count 149 MPV 10.5 Neut # (Auto) 6.6 Lymph # (Auto) 0.9 L [place] # (Auto) 0.5 Eos # (Auto) 0.1 Baso # (Auto) 0.0 Absolute Nucleated RBC 0.00 Nucleated RBC % 0.0 Sodium 136 Potassium 3.8 Chloride 105 Carbon Dioxide 23 Anion Gap 8.0 BUN 15 Creatinine 0.5 Estimated GFR (MDRD) 125 Glucose 160 H Calcium 9.0 Total Bilirubin 0.5 AST 16 ALT 17 Alkaline Phosphatase 75 Total Protein 6.8 Albumin 4.0 Globulin 2.8 Albumin/Globulin Ratio 1.4 Lipase 163 H Urine Color YELLOW Urine Clarity CLEAR Urine pH 6.0 Ur Specific [place] 1.010 Urine Protein NEGATIVE Urine Glucose (UA) NEGATIVE Urine Ketones NEGATIVE Urine Occult Blood NEGATIVE Urine Nitrite NEGATIVE Urine Bilirubin NEGATIVE Urine Urobilinogen 0.2 (NORMAL) Ur Leukocyte Esterase NEGATIVE Ur Microscopic Review NOT INDICATED Urine Culture Comments NOT INDICATED PD MEDICAL DECISION MAKING - ED course ED course: patient seen by other ER provider. Departure - Departure Disposition: 01 Home, Self Care Clinical Impression: Left sided abdominal pain Condition: Stable Comments: Maribeth has hope you are feeling better soon. You are seen today in the emergency department because you have had abdominal pain on the left-sided of your belly for about 2 weeks. You reportedly had a urinary tract infection diagnosed at [facility] 2 weeks ago. Your labs today are essentially normal. There is no findings to suggest a urinary tract infection. We did do a CT of your abdomen to evaluate for the possibility of ureter or kidney stones. We also were evaluating for the possibility of diverticulitis. The CT of your abdomen today did not show anything worrisome. I recommend that you discuss this ED visit with primary care provider. You may benefit from referral for follow-up with a colonoscopy. If at any point you develop fevers, have uncontrolled vomiting, black or bloody stools then please return immediately to the ER for second evaluation. Discharge Date/Time: 10/29/21 19:52
[2021-10-29 18:17] LABS: BASOPHILS % (AUTO) 0.2 %; EOSINOPHILS # (AUTO) 0.1 10^3/uL (0.0-0.7); EOSINOPHILS % (AUTO) 1.3 %; HCT - HEMATOCRIT 37.2 % (37.0-47.0); HGB - HEMOGLOBIN 12.3 g/dL (12.0-16.0); LYMPHOCYTES # (AUTO) 0.9 10^3/uL (1.5-3.5); LYMPHOCYTES % (AUTO) 10.5 %; MEAN CORPUSCULAR HGB CONC 33.1 g/dL (32.0-36.0); MEAN CORPUSCULAR VOLUME 84.7 fL (81.0-99.0); MEAN PLATELET VOLUME 10.5 fL (7.9-10.8); MONOCYTES # (AUTO) 0.5 10^3/uL (0.0-1.0); MONOCYTES % (AUTO) 6.4 %; NEUTROPHILS # (AUTO) 6.6 10^3/uL (1.5-6.6); NEUTROPHILS % (AUTO) 81.4 %; PLT - PLATELET COUNT 149 10^3/uL (130-450); RED BLOOD COUNT 4.39 10^6/uL (4.20-5.40); RED CELL DISTRIBUTION WIDTH 13.6 % (12.0-15.0); WHITE BLOOD COUNT 8.2 x10^3/uL (4.8-10.8)
[2021-10-29 18:31] LABS: ALBUMIN/GLOBULIN RATIO 1.4 (1.0-2.2); BILIRUBIN,TOTAL 0.5 mg/dL (0.2-1.0); CREATININE 0.5 mg/dL (0.4-1.0); POTASSIUM 3.8 mmol/L (3.5-5.0); TOTAL PROTEIN 6.8 g/dL (6.7-8.2)
[2021-10-29 18:35] LABS: BILIRUBIN,URINE NEGATIVE (NEGATIVE); GLUCOSE, URINE (UA) NEGATIVE (NEGATIVE); KETONES,URINE (UA) NEGATIVE (NEGATIVE); LEUKOCYTE ESTERASE, URINE NEGATIVE (NEGATIVE); NITRITE,URINE NEGATIVE (NEGATIVE); OCCULT BLOOD,URINE NEGATIVE (NEGATIVE); PROTEIN,URINE NEGATIVE (NEGATIVE); UROBILINOGEN,URINE 0.2 (NORMAL) E.U./dL (NORMAL)
[2021-10-29 18:36] LABS: CLARITY,URINE CLEAR (CLEAR)
--- NOTE | 2021-10-29 18:45 | ED Physician Documentation ---
History of Present Illness - Stated complaint Stated Complaint: BLADDER INFECTION - Chief complaint Chief Complaint: Abd Pain - Additonal information Additional information: 61-year-old female presents the emergency department for evaluation of persistent left-sided abdominal pain. She states that about 2 weeks ago she was seen at [facility] and diagnosed with a urinary tract infection. She completed antibiotics but despite taking the medication her pain persist. She has no fevers or vomiting. No changes in bowel habits no hematochezia or melena. Patient reports a history of diabetes as well as multiple chronic psychiatric Conditions. She is not anticoagulated. Review of Systems Constitutional: denies: Fever, Chills Eyes: reports: Reviewed and negative Nose: reports: Reviewed and negative Throat: reports: Reviewed and negative Cardiac: reports: Reviewed and negative GI: reports: Abdominal Pain. denies: Nausea, Vomiting : reports: Reviewed and negative Skin: reports: Reviewed and negative Musculoskeletal: reports: Reviewed and negative PD PAST MEDICAL HISTORY - Past Medical History Past Medical History: Yes Cardiovascular: High cholesterol Respiratory: None Neuro: None Endocrine/Autoimmune: Type 2 diabetes GI: GERD WIRE SPLICER: None : None HEENT: None Psych: Bipolar disorder Musculoskeletal: None - Past Surgical History Past Surgical History: Yes /WIRE SPLICER: Tubal ligation - Present Medications Home Medications: Ambulatory Orders Medication Instructions Recorded Confirmed Aspirin [Aspirin EC] 81 mg PO DAILY 09/13/14 09/13/14 Atorvastatin [Lipitor] 20 mg PO DAILY 09/13/14 09/13/14 Citalopram [CeleXA] 20 mg PO DAILY 09/13/14 09/13/14 Eszopiclone [Lunesta] 2 mg PO DAILY PRN 09/13/14 09/13/14 Insulin Aspart (Vial) [NovoLOG] 60 units SUBQ AC 09/13/14 09/13/14 Insulin Glargine,Hum.rec.anlog 80 units SUBQ BID 09/13/14 09/13/14 [Lantus] [place] Carbonate 450 mg PO DAILY 09/13/14 09/13/14 Omeprazole [PriLOSEC] 20 mg PO DAILY 09/13/14 09/13/14 Oxybutynin [Ditropan] 5 mg PO DAILY 09/13/14 09/13/14 Ziprasidone [Geodon] 60 mg PO DAILY 09/13/14 09/13/14 risperiDONE [RisperDAL] 1.5 mg PO BID 09/13/14 09/13/14 Blood Sugar Diagnostic [Glucometer 1 each MC BID #60 strip 09/04/19 Strips] Blood-Glucose Meter [Glucometer] 1 each MC BID #1 each 09/04/19 Fluconazole [Diflucan] 150 mg PO ONCE #1 tablet 09/04/19 Phenazopyridine HCl [Pyridium] 100 mg PO TID PRN #15 tablet 09/04/19 metroNIDAZOLE [Flagyl] 500 mg PO BID #14 tablet 09/04/19 Naproxen Sodium [Anaprox Ds] 550 mg PO BID #20 tablet 04/03/20 Ibuprofen [Motrin] 800 mg PO Q8H PRN #30 tablet 04/18/21 methocarbamoL [Robaxin] 500 mg PO Q6H PRN #20 tablet 04/18/21 - Allergies Allergies/Adverse Reactions: Allergies Allergy/AdvReac Type Severity Reaction Status Date / Time lisinopril AdvReac Respiratory Verified 04/18/21 16:15 meperidine [From Demerol] AdvReac Dizziness Verified 04/18/21 16:15 - Social History Does the pt smoke?: No Smoking Status: Never smoker Does the pt drink ETOH?: No Does the pt have substance abuse?: No - Immunizations Immunizations are current?: Yes - POLST Patient has POLST: No PD ED PE NORMAL - General General: Alert and oriented X 3, No acute distress - HEENT HEENT: Atraumatic, Moist mucous membranes - Neck Neck: Supple, no meningeal sign, No adenopathy - Cardiac Cardiac: RRR, No murmur - Respiratory Respiratory: No respiratory distress - Abdomen Abdomen: Normal bowel sounds, Soft. No: Non tender (Left-sided abdominal tenderness. No guarding or rebound. No CVA tenderness elicited.) - Back Back: No CVA TTP, No spinal TTP - Derm Derm: Normal color, Warm and dry - Extremities Extremities: No deformity, No tenderness to palpate, Normal ROM s pain - Neuro Neuro: Alert and oriented X 3, meal cooker 2-12 intact Eye Opening: Spontaneous Motor: Obeys Commands Verbal: Oriented GCS Score: 15 Results - Vitals Vitals: Vital Signs - 24 hr 10/29/21 17:52 Temperature 36.8 C Heart Rate 58 L Respiratory 18 Rate Blood Pressure 150/53 H O2 Saturation 100 Oxygen O2 Source Room air - Labs Labs: Laboratory Tests 10/29/21 10/29/21 10/29/21 18:12 18:12 18:25 WBC 8.2 RBC 4.39 Hgb 12.3 Hct 37.2 MCV 84.7 MCH 28.0 MCHC 33.1 RDW 13.6 Plt Count 149 MPV 10.5 Neut # (Auto) 6.6 Lymph # (Auto) 0.9 L [place] # (Auto) 0.5 Eos # (Auto) 0.1 Baso # (Auto) 0.0 Absolute Nucleated RBC 0.00 Nucleated RBC % 0.0 Sodium 136 Potassium 3.8 Chloride 105 Carbon Dioxide 23 Anion Gap 8.0 BUN 15 Creatinine 0.5 Estimated GFR (MDRD) 125 Glucose 160 H Calcium 9.0 Total Bilirubin 0.5 AST 16 ALT 17 Alkaline Phosphatase 75 Total Protein 6.8 Albumin 4.0 Globulin 2.8 Albumin/Globulin Ratio 1.4 Lipase 163 H Urine Color YELLOW Urine Clarity CLEAR Urine pH 6.0 Ur Specific [place] 1.010 Urine Protein NEGATIVE Urine Glucose (UA) NEGATIVE Urine Ketones NEGATIVE Urine Occult Blood NEGATIVE Urine Nitrite NEGATIVE Urine Bilirubin NEGATIVE Urine Urobilinogen 0.2 (NORMAL) Ur Leukocyte Esterase NEGATIVE Ur Microscopic Review NOT INDICATED Urine Culture Comments NOT INDICATED - Rads (name of study) CT abd Radiology: Final report received (No evidence of urinary tract calcification or obstruction. Normal appendix.) PD MEDICAL DECISION MAKING - ED course Complexity details: reviewed results, re-evaluated patient, considered differential, d/w patient ED course: 61-year-old female comes the emergency department for evaluation of persistent left-sided abdominal pain. Symptoms started 2 weeks ago. Reportedly was seen at [facility]. While there underwent testing including a CT of the abdomen and was ultimately diagnosed with a urinary tract infection. Despite completing antibiotics she does not feel improved. No fevers vomiting. Today her labs showed no leukocytosis preserved renal and liver function. Her lipase is mildly elevated at 163. She denies any alcohol use. No mid upper right upper quadrant abdominal pain was elicited. The etiology of her symptoms is not clear at this time. She is advised close follow-up with primary care provider. She may benefit from a screening colonoscopy moving forward. She is discharged in stable condition. Emergent return precautions discussed Departure - Departure Disposition: 01 Home, Self Care Clinical Impression: Left sided abdominal pain Condition: Stable Record reviewed to determine appropriate education?: Yes Comments: Maribeth has hope you are feeling better soon. You are seen today in the emergency department because you have had abdominal pain on the left-sided of your belly for about 2 weeks. You reportedly had a urinary tract infection diagnosed at [facility] 2 weeks ago. Your labs today are essentially normal. There is no findings to suggest a urinary tract infection. We did do a CT of your abdomen to evaluate for the possibility of ureter or kidney stones. We also were evaluating for the possibility of diverticulitis. The CT of your abdomen today did not show anything worrisome. I recommend that you discuss this ED visit with primary care provider. You may benefit from referral for follow-up with a colonoscopy. If at any point you develop fevers, have uncontrolled vomiting, black or bloody stools then please return immediately to the ER for second evaluation.
--- NOTE | 2021-10-29 18:58 | CT Report ---
PROCEDURE: Abdomen/Pelvis WO INDICATIONS: worsening symptoms after uti TECHNIQUE: Noncontrast 5 mm thick sections acquired from the diaphragms to the symphysis. 5 mm coronal and sagi ttal reformats were then performed. For radiation dose reduction, the following was used: automated exposure control, adjustment of mA and/or kV according to patient size. COMPARISON: CT dated 09/05/2021 FINDINGS: Image quality: Excellent. ABDOMEN: Lung bases: Lung bases are clear. Heart size is normal. Solid organs: Liver and spleen are normal in size. Gallbladder is contracted and within normal limi ts otherwise Pancreas is normal in contours. No adrenal nodules. Kidneys are normal in size, witho ut hydronephrosis or nephrolithiasis. Peritoneum and bowel: Unenhanced bowel loops demonstrate normal wall thickness and caliber. No free fluid or air. Normal appendix. Nodes and vessels: No retroperitoneal or mesenteric adenopathy by size criteria. Aorta and inferior vena cava are normal in caliber. Miscellaneous: No ventral hernias. PELVIS: Genitourinary: Bladder wall thickness is normal. Miscellaneous: No inguinal hernias or adenopathy. Bones: No suspicious bony lesions. No vertebral body compression fractures. IMPRESSION: 1. No evidence of urinary tract calcification, nor obstruction. 2. Normal appendix. Reviewed by: Yoav Goel MD on 10/29/2021 6:57 PM PDT Approved by: Yoav Goel MD on 10/29/2021 6:57 PM PDT Station ID: [id number]
[2021-10-29 19:53] VITALS: BP 144/61
== END 2021-10-29 19:52 | disposition home or self-care (01) ==
LOC: ED 17:45
DX: R10.9 Unspecified abdominal pain (principal)
CPT/HCPCS: 36415; 80053; 81001; 81003; 83690; 85025; 87086; 99282; 99284

== ENCOUNTER 2022-06-10 17:11 | Emergency (ER) | payer OTHER ==
--- NOTE | 2022-06-10 17:37 | ED Physician Documentation ---
PD HPI CHEST PAIN - Stated complaint Stated Complaint: CHEST PAIN - Chief complaint Chief Complaint: Cardiac - History obtained from History obtained from: Patient - Additional information Additional information: 62-year-old woman with no history of coronary disease. 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 She has an appoint with her wick and base assembler next week. She had a 30-minute episode of nonradiating substernal chest pain lasting about half an hour starting while driving prior to arrival. There is no associated diaphoresis, shortness of breath. No recent travel or calf pain or calf swelling. 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 : None HEENT: None Psych: Bipolar disorder Musculoskeletal: None - Past Surgical History Past Surgical History: Yes /JAVA DEVELOPER WITH SECURITY CLEARANCE: Tubal ligation - Present Medications Home Medications: Ambulatory Orders Medication Instructions Recorded Confirmed Aspirin [Aspirin EC] 81 mg PO DAILY 09/13/14 09/13/14 Atorvastatin [Lipitor] 20 mg PO DAILY 09/13/14 09/13/14 Citalopram [CeleXA] 20 mg PO DAILY 09/13/14 09/13/14 Eszopiclone [Lunesta] 2 mg PO DAILY PRN 09/13/14 09/13/14 Insulin Aspart (Vial) [NovoLOG] 60 units SUBQ AC 09/13/14 09/13/14 Insulin Glargine,Hum.rec.anlog 80 units SUBQ BID 09/13/14 09/13/14 [Lantus] [place] Carbonate 450 mg PO DAILY 09/13/14 09/13/14 Omeprazole [PriLOSEC] 20 mg PO DAILY 09/13/14 09/13/14 Oxybutynin [Ditropan] 5 mg PO DAILY 09/13/14 09/13/14 Ziprasidone [Geodon] 60 mg PO DAILY 09/13/14 09/13/14 risperiDONE [RisperDAL] 1.5 mg PO BID 09/13/14 09/13/14 Blood Sugar Diagnostic [Glucometer 1 each MC BID #60 strip 09/04/19 Strips] Blood-Glucose Meter [Glucometer] 1 each MC BID #1 each 09/04/19 Fluconazole [Diflucan] 150 mg PO ONCE #1 tablet 09/04/19 Phenazopyridine HCl [Pyridium] 100 mg PO TID PRN #15 tablet 09/04/19 metroNIDAZOLE [Flagyl] 500 mg PO BID #14 tablet 09/04/19 Naproxen Sodium [Anaprox Ds] 550 mg PO BID #20 tablet 04/03/20 Ibuprofen [Motrin] 800 mg PO Q8H PRN #30 tablet 04/18/21 methocarbamoL [Robaxin] 500 mg PO Q6H PRN #20 tablet 04/18/21 - Allergies Allergies/Adverse Reactions: Allergies Allergy/AdvReac Type Severity Reaction Status Date / Time lisinopril AdvReac Respiratory Verified 06/10/22 17:17 meperidine [From Demerol] AdvReac Dizziness Verified 06/10/22 17:17 - Social History Does the pt smoke?: No Smoking Status: Never smoker Does the pt drink ETOH?: No Does the pt have substance abuse?: No - Immunizations Immunizations are current?: Yes - POLST Patient has POLST: No PD ED PE NORMAL - Vitals Vital signs reviewed: Yes - General General: Alert and oriented X 3, No acute distress - Cardiac Cardiac: RRR, No murmur - Respiratory Respiratory: No respiratory distress, Clear bilaterally - Abdomen Abdomen: Non tender - Extremities Extremities: No edema, No calf tenderness / cord - Neuro Neuro: Alert and oriented X 3, Normal speech Results - Vitals Vitals: Vital Signs - 24 hr 06/10/22 06/10/22 06/10/22 17:14 17:35 18:19 Temperature 36.7 C Heart Rate 72 70 64 Respiratory 16 19 17 Rate Blood Pressure 102/88 H 148/69 H 181/92 H O2 Saturation 99 98 100 06/10/22 06/10/22 18:30 19:00 Temperature Heart Rate 61 61 Respiratory 16 16 Rate Blood Pressure 169/87 H 169/87 H O2 Saturation 98 98 Oxygen O2 Source Room air - EKG (time done) 1723 EKG releavant findings:: EKG personally interpreted by author of this note. Relevant findings are: Rate: Rate (enter#) (68) Rhythm: NSR, LAE QRS: LVH Ischemia: Q waves (Small anterior). No: ST elevation c/w ischemia Compare to prior EKG: Changed from prior EKG (New small anterior Q waves compared with September 05 of last year, otherwise the same.) Computer interpretation: Agree with computer - Labs Labs: Laboratory Tests 06/10/22 06/10/22 06/10/22 17:30 17:30 17:30 WBC 6.0 RBC 5.63 H Hgb 15.3 Hct 46.3 MCV 82.2 MCH 27.2 MCHC 33.0 RDW 13.0 Plt Count 210 MPV 10.7 Neut # (Auto) 4.3 Lymph # (Auto) 1.2 L Ellis # (Auto) 0.4 Eos # (Auto) 0.1 Baso # (Auto) 0.0 Absolute Nucleated RBC 0.00 Nucleated RBC % 0.0 Sodium 133 L Potassium 3.9 Chloride 99 L Carbon Dioxide 25 Anion Gap 9.0 BUN 16 Creatinine 0.5 Estimated GFR (MDRD) 124 Glucose 407 H Calcium 9.1 Total Bilirubin 0.3 AST 16 ALT 20 Alkaline Phosphatase 118 Troponin I High Sens 6.3 Total Protein 7.1 Albumin 3.9 Globulin 3.2 Albumin/Globulin Ratio 1.2 Lipase 57 H [place] 06/10/22 06/10/22 17:51 19:26 WBC RBC Hgb Hct MCV MCH MCHC RDW Plt Count MPV Neut # (Auto) Lymph # (Auto) [place] # (Auto) Eos # (Auto) Baso # (Auto) Absolute Nucleated RBC Nucleated RBC % Sodium Potassium Chloride Carbon Dioxide Anion Gap BUN Creatinine Estimated GFR (MDRD) Glucose Calcium Total Bilirubin AST ALT Alkaline Phosphatase Troponin I High Sens 5.7 Total Protein Albumin Globulin Albumin/Globulin Ratio Lipase [place] < 0.05 - Rads (name of study) Single view chest x-ray is unremarkable Relevant Findings:: Final report received, EMP independent interpretation of test PD Medical Decision Making - ED course ED course: 62-year-old woman presents with resolved atypical chest pain. EKG is nonischemic. Chest x-ray normal. CBC reviewed and normal. CMP notable for moderate hyperglycemia which the patient feels is due to her having had caramel popcorn just before getting here. For that we will administer 8 units of IV insulin. Her initial troponin is negative. Given that the timing is very acute we will repeat the troponin after 2 hours. Departure - Departure Disposition: 01 Home, Self Care Clinical Impression: Atypical chest pain, Uncontrolled diabetes mellitus Condition: Good Record reviewed to determine appropriate education?: Yes Instructions: ED Chest Pain Atypical Unkn Cause Comments: You were seen today for resolved chest pain. We did an EKG and 2 troponin tests which were normal/negative. Follow-up with your wick and base assembler next week as scheduled. Return if pain recurs. Continue current medications otherwise.
[2022-06-10 17:39] LABS: BASOPHILS % (AUTO) 0.7 %; EOSINOPHILS # (AUTO) 0.1 10^3/uL (0.0-0.7); HCT - HEMATOCRIT 46.3 % (37.0-47.0); HGB - HEMOGLOBIN 15.3 g/dL (12.0-16.0); LYMPHOCYTES # (AUTO) 1.2 10^3/uL (1.5-3.5); LYMPHOCYTES % (AUTO) 19.2 %; MEAN CORPUSCULAR HEMOGLOBIN 27.2 pg (27.0-31.0); MEAN CORPUSCULAR VOLUME 82.2 fL (81.0-99.0); MEAN PLATELET VOLUME 10.7 fL (7.9-10.8); MONOCYTES # (AUTO) 0.4 10^3/uL (0.0-1.0); MONOCYTES % (AUTO) 7.1 %; NEUTROPHILS # (AUTO) 4.3 10^3/uL (1.5-6.6); NEUTROPHILS % (AUTO) 70.8 %; PLT - PLATELET COUNT 210 10^3/uL (130-450); RED BLOOD COUNT 5.63 10^6/uL (4.20-5.40)
[2022-06-10 17:56] LABS: ALBUMIN 3.9 g/dL (3.2-5.5); ALBUMIN/GLOBULIN RATIO 1.2 (1.0-2.2); BILIRUBIN,TOTAL 0.3 mg/dL (0.2-1.0); CALCIUM 9.1 mg/dL (8.5-10.3); CREATININE 0.5 mg/dL (0.4-1.0); POTASSIUM 3.9 mmol/L (3.5-5.0); TOTAL PROTEIN 7.1 g/dL (6.7-8.2)
--- NOTE | 2022-06-10 18:01 | XRAY Report ---
PROCEDURE: Chest 1 View X-Ray INDICATIONS: Chest Pain TECHNIQUE: One view of the chest was acquired. COMPARISON: Chest x-ray, 02/25/2020. FINDINGS: Surgical changes and devices: None. Lungs and pleura: No pleural effusions or pneumothorax. Lungs are clear. Mediastinum: Mediastinal contours appear normal. Heart size is normal. Bones and chest wall: No suspicious bony lesions. Overlying soft tissues appear unremarkable. IMPRESSION: No acute cardiopulmonary disease. Reviewed by: Belen Ewing MD on 06/10/2022 6:00 PM PDT Approved by: Belen Ewing MD on 06/10/2022 6:00 PM PDT Station ID: [id number]
[2022-06-10] MEDS ORDERED: INSULIN REGULAR HUMAN 100 UNIT/1 ML 10 ML MDV IVP STA (18:10)
[2022-06-10 18:30] LABS: LITHIUM < 0.05 mmol/L
[2022-06-10 20:06] VITALS: BP 155/78
== END 2022-06-10 20:06 | disposition home or self-care (01) ==
LOC: ED 17:11
DX: R07.89 Other chest pain (principal); E11.9 Type 2 diabetes mellitus without complications; Z79.4 Long term (current) use of insulin
CPT/HCPCS: 36415; 71045; 80053; 80178; 83690; 84484; 85025; 93005; 99284; J1815

== ENCOUNTER 2022-08-02 17:34 | Emergency (ER) | payer OTHER ==
--- OUTSIDE RECORDS SUMMARY | 2022-08-02 17:54 | EXTERNAL MEDICAL SUMMARY RPT | Continuity of Care Document ---
Author Name Unknown Address [address] [place] [address] Phone Organization [place] Address [address] [place] [address] Phone Care Team Providers Care Guard Range Name Role Phone Crew, Celestina Unavailable Unavailable Allergies and Intolerances date description facility type (no date) [facility] (unknown) Medications date description facility 2022-06-23 00:00 [place] [facility] 2022-06-23 00:00 [facility] Problems date description facility 2022-06-23 00:00 Encounter for medication manage [facility] Social History date description facility 2022-06-23 00:00 Ex-smoker (finding) [facility] Vital Signs date measurement value units 2022-06-23 00:00 BMI 22.6 kg/m2 2022-06-23 00:00 BP_diastolic 84 mmHg 2022-06-23 00:00 BP_systolic 146 mmHg 2022-06-23 00:00 heart_rate 69 /min 2022-06-23 00:00 height_metric 146.69 cm 2022-06-23 00:00 height_standard 57.75 in 2022-06-23 00:00 o2_saturation 97 % 2022-06-23 00:00 weight_metric 48.67 kg 2022-06-23 00:00 weight_standard 107.3 lb
--- NOTE | 2022-08-02 18:01 | ED Physician Documentation ---
History of Present Illness - Stated complaint Stated Complaint: NAUSEA/FEELING UNWELL - Chief complaint Chief Complaint: Abd Pain - Additonal information Additional information: 62-year-old female presents emergency department for evaluation of feeling generally unwell and nausea. Symptoms began today. States for the last 3 days she has not taken her Lantus or NovoLog because she simply forgot. This afternoon at 4 PM she ate a tuna sandwich and then took 60 of Lantus and 40 of NovoLog. She has been unable to check her sugars at home as her glucometer is broken and she is waiting for insurance to allow another 1 to be dispensed. No fevers, vomiting. Denies chest pain or shortness of air. No abdominal pain dysuria dark diarrhea. Review of Systems Constitutional: denies: Fever Cardiac: reports: Reviewed and negative Respiratory: reports: Reviewed and negative GI: reports: Nausea. 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 : None HEENT: None Psych: Bipolar disorder Musculoskeletal: None Derm: None - Past Surgical History Past Surgical History: Yes /WIRE ROPE SLING MAKER: Tubal ligation - Present Medications Home Medications: Ambulatory Orders Medication Instructions Recorded Confirmed Aspirin [Aspirin EC] 81 mg PO DAILY 09/13/14 09/13/14 Atorvastatin [Lipitor] 20 mg PO DAILY 09/13/14 09/13/14 Citalopram [CeleXA] 20 mg PO DAILY 09/13/14 09/13/14 Eszopiclone [Lunesta] 2 mg PO DAILY PRN 09/13/14 09/13/14 Insulin Aspart (Vial) [NovoLOG] 60 units SUBQ AC 09/13/14 09/13/14 Insulin Glargine,Hum.rec.anlog 80 units SUBQ BID 09/13/14 09/13/14 [Lantus] [place] Carbonate 450 mg PO DAILY 09/13/14 09/13/14 Omeprazole [PriLOSEC] 20 mg PO DAILY 09/13/14 09/13/14 Oxybutynin [Ditropan] 5 mg PO DAILY 09/13/14 09/13/14 Ziprasidone [Geodon] 60 mg PO DAILY 09/13/14 09/13/14 risperiDONE [RisperDAL] 1.5 mg PO BID 09/13/14 09/13/14 Blood Sugar Diagnostic [Glucometer 1 each MC BID #60 strip 09/04/19 Strips] Blood-Glucose Meter [Glucometer] 1 each MC BID #1 each 09/04/19 Fluconazole [Diflucan] 150 mg PO ONCE #1 tablet 09/04/19 Phenazopyridine HCl [Pyridium] 100 mg PO TID PRN #15 tablet 09/04/19 metroNIDAZOLE [Flagyl] 500 mg PO BID #14 tablet 09/04/19 Naproxen Sodium [Anaprox Ds] 550 mg PO BID #20 tablet 04/03/20 Ibuprofen [Motrin] 800 mg PO Q8H PRN #30 tablet 04/18/21 methocarbamoL [Robaxin] 500 mg PO Q6H PRN #20 tablet 04/18/21 - Allergies Allergies/Adverse Reactions: Allergies Allergy/AdvReac Type Severity Reaction Status Date / Time lisinopril AdvReac Respiratory Verified 08/02/22 17:39 meperidine [From Demerol] AdvReac Dizziness Verified 08/02/22 17:39 - Social History Does the pt smoke?: No Smoking Status: Never smoker Does the pt drink ETOH?: No Does the pt have substance abuse?: No - Immunizations Immunizations are current?: Yes - POLST Patient has POLST: No PD ED PE NORMAL - General General: Alert and oriented X 3, No acute distress. No: Well developed/nourished (Appears older than stated age) - HEENT HEENT: Atraumatic, Moist mucous membranes - Neck Neck: Supple, no meningeal sign, No adenopathy - Cardiac Cardiac: RRR, No murmur - Respiratory Respiratory: Clear bilaterally - Abdomen Abdomen: Normal bowel sounds, Soft, Non tender - Derm Derm: Normal color, Warm and dry, No rash - Extremities Extremities: No deformity - Neuro Neuro: Alert and oriented X 3, seismic computer 2-12 intact Eye Opening: Spontaneous Motor: Obeys Commands Verbal: Oriented GCS Score: 15 Results - Vitals Vitals: Vital Signs - 24 hr 08/02/22 08/02/22 17:39 17:43 Temperature 36.5 C 36.5 C Heart Rate 66 66 Respiratory 16 16 Rate Blood Pressure 128/58 L 128/58 L O2 Saturation 98 98 Oxygen O2 Source Room air - EKG (time done) 1757 EKG releavant findings:: EKG personally interpreted by author of this note. Relevant findings are: Rate: Rate (enter#) (60) Rhythm: NSR [place]: Normal Intervals: Normal RI. No: Prolonged QT QRS: LVH Compare to prior EKG: Unchanged from prior EKG Computer interpretation: Agree with computer - Labs Labs: Laboratory Tests 08/02/22 08/02/22 08/02/22 17:46 18:03 18:03 WBC 6.5 RBC 5.30 Hgb 14.7 Hct 43.9 MCV 82.8 MCH 27.7 MCHC 33.5 RDW 13.2 Plt Count 178 MPV 11.6 H Neut # (Auto) 5.0 Lymph # (Auto) 1.0 L [place] # (Auto) 0.4 Eos # (Auto) 0.1 Baso # (Auto) 0.0 Absolute Nucleated RBC 0.00 Nucleated RBC % 0.0 Sodium 132 L Potassium 4.2 Chloride 101 Carbon Dioxide 24 Anion Gap 7.0 BUN 26 H Creatinine 0.9 Estimated GFR (MDRD) 63 L Glucose 453 H POC Whole Bld Glucose Calcium 8.7 Total Bilirubin 0.6 AST 16 ALT 25 Alkaline Phosphatase 105 Total Protein 6.9 Albumin 3.8 Globulin 3.1 Albumin/Globulin Ratio 1.2 Lipase 85 H Urine Color YELLOW Urine Clarity CLEAR Urine pH 5.0 Ur Specific [place] 1.015 Urine Protein TRACE Urine Glucose (UA) >=1000 H Urine Ketones NEGATIVE Urine Occult Blood NEGATIVE Urine Nitrite NEGATIVE Urine Bilirubin NEGATIVE Urine Urobilinogen 0.2 (NORMAL) Ur Leukocyte Esterase NEGATIVE Ur Microscopic Review NOT INDICATED Urine Culture Comments NOT INDICATED Last Dose Date Last Dose Time [place] Serum Ketones NEGATIVE 08/02/22 08/02/22 08/02/22 18:03 18:09 19:35 WBC RBC Hgb Hct MCV MCH MCHC RDW Plt Count MPV Neut # (Auto) Lymph # (Auto) [place] # (Auto) Eos # (Auto) Baso # (Auto) Absolute Nucleated RBC Nucleated RBC % Sodium Potassium Chloride Carbon Dioxide Anion Gap BUN Creatinine Estimated GFR (MDRD) Glucose POC Whole Bld Glucose 457 H 205 H Calcium Total Bilirubin AST ALT Alkaline Phosphatase Total Protein Albumin Globulin Albumin/Globulin Ratio Lipase Urine Color Urine Clarity Urine pH Ur Specific [place] Urine Protein Urine Glucose (UA) Urine Ketones Urine Occult Blood Urine Nitrite Urine Bilirubin Urine Urobilinogen Ur Leukocyte Esterase Ur Microscopic Review Urine Culture Comments Last Dose Date UNKNOWN Last Dose Time UNKNOWN [place] < 0.05 Serum Ketones PD Medical Decision Making - ED course Complexity details: reviewed results, re-evaluated patient, considered differential, d/w patient ED course: 62-year-old female presents emergency department for evaluation of feeling nauseated. She has not taken her insulin for the last 4 days because she simply forgot. She denies chest pain or shortness of air. No abdominal pain nausea or vomiting. She typically takes 60 of Lantus each day as well as 40 of Humalog. When she began feeling nauseated this afternoon she did take these doses of insulin and ate a tuna fish sandwich. On presentation to the emergency department she presents alert and well- appearing. No focal deficits. Her vital signs were without fever or hypotension or tachycardia. Her CBC and electrolytes as interpreted by myself showed no acute worrisome findings though she was modestly hyperglycemic with a blood glucose of 457. Her ketones were negative. There was no gap. Clinically she does not present in DKA. Urine showed no signs of infection. An EKG is interpreted by myself showed no acute ischemic findings. Here in the emergency department the patient was administered 1 L of saline and given a single dose of Zofran as well as 10 units of insulin IV. On recheck her blood glucose is now 205 and she is feeling markedly better. I did offer to write a prescription for a glucometer but the patient is wanting a freestyle roni which she is going through insurance to have authorized. At this point she desires to be discharged home. I am encouraging her to resume taking her insulins that she otherwise would. We did discuss the usual emergent return precautions Departure - Departure Disposition: Home, Self Care Clinical Impression: Poorly controlled type 2 diabetes mellitus, Nausea Condition: Stable Record reviewed to determine appropriate education?: Yes Comments: Thelma reyes came to the emergency department today because for several days you have not taken your insulins and you began feeling nauseated this afternoon. Here in the emergency department your blood glucose was 457. There were no other worrisome findings with your labs. We did give you some IV fluids, nausea medicine and insulin and on recheck your blood sugars are now in the low 200s. I did offer to write a prescription for glucometer but you are waiting for insurance approval for your freestyle roni. If you feel that you would like the glucometer represcribed from the emergency department please contact us however in the interim it is very important that you continue to take your insulins and eat your meals regularly. Return to the ER if you find that you are having worsening symptoms
[2022-08-02 18:09] LABS: BASOPHILS % (AUTO) 0.6 %; EOSINOPHILS # (AUTO) 0.1 10^3/uL (0.0-0.7); EOSINOPHILS % (AUTO) 1.5 %; HCT - HEMATOCRIT 43.9 % (37.0-47.0); HGB - HEMOGLOBIN 14.7 g/dL (12.0-16.0); LYMPHOCYTES % (AUTO) 14.7 %; MEAN CORPUSCULAR HEMOGLOBIN 27.7 pg (27.0-31.0); MEAN CORPUSCULAR HGB CONC 33.5 g/dL (32.0-36.0); MEAN CORPUSCULAR VOLUME 82.8 fL (81.0-99.0); MEAN PLATELET VOLUME 11.6 fL (7.9-10.8); MONOCYTES # (AUTO) 0.4 10^3/uL (0.0-1.0); NEUTROPHILS % (AUTO) 76.9 %; PLT - PLATELET COUNT 178 10^3/uL (130-450); RED CELL DISTRIBUTION WIDTH 13.2 % (12.0-15.0); WHITE BLOOD COUNT 6.5 x10^3/uL (4.8-10.8)
[2022-08-02] MEDS ORDERED: SODIUM CHLORIDE 0.9% 1,000 ML IV STA (18:10)
[2022-08-02 18:20] LABS: BILIRUBIN,URINE NEGATIVE (NEGATIVE); GLUCOSE, URINE (UA) >=1000 mg/dL (NEGATIVE); KETONES,URINE (UA) NEGATIVE (NEGATIVE); LEUKOCYTE ESTERASE, URINE NEGATIVE (NEGATIVE); NITRITE,URINE NEGATIVE (NEGATIVE); OCCULT BLOOD,URINE NEGATIVE (NEGATIVE); PROTEIN,URINE TRACE mg/dL (NEGATIVE); UROBILINOGEN,URINE 0.2 (NORMAL) E.U./dL (NORMAL)
[2022-08-02 18:22] LABS: CLARITY,URINE CLEAR (CLEAR)
[2022-08-02 18:23] LABS: ALBUMIN 3.8 g/dL (3.2-5.5); ALBUMIN/GLOBULIN RATIO 1.2 (1.0-2.2); ALKALINE PHOSPHATASE 105 IU/L (42-121); ALT ALANINE AMINOTRANSFERASE 25 IU/L (10-60); AST ASPARTATE AMINOTRANSFERASE 16 IU/L (10-42); BILIRUBIN,TOTAL 0.6 mg/dL (0.2-1.0); BUN - BLOOD UREA NITROGEN 26 mg/dL (6-20); CALCIUM 8.7 mg/dL (8.5-10.3); CARBON DIOXIDE - CO2 24 mmol/L (21-32); CHLORIDE 101 mmol/L (101-111); CREATININE 0.9 mg/dL (0.4-1.0); GFR - MDRD 63 (>89); GLUCOSE 453 mg/dL (70-100); LIPASE 85 U/L (22-51); POTASSIUM 4.2 mmol/L (3.5-5.0); SODIUM 132 mmol/L (135-145); TOTAL PROTEIN 6.9 g/dL (6.7-8.2)
[2022-08-02 18:30] LABS: KETONES, SERUM (ACETEST) NEGATIVE (NEGATIVE)
[2022-08-02] MEDS ORDERED: INSULIN REGULAR HUMAN 300 UNIT/3 ML VIAL IVP STA (18:30)
[2022-08-02 18:33] LABS: LITHIUM < 0.05 mmol/L
[2022-08-02] MEDS ORDERED: ONDANSETRON 4 MG/2 ML VIAL IVP STA (18:34)
[2022-08-02 20:04] VITALS: BP 147/76
== END 2022-08-02 20:00 | disposition home or self-care (01) ==
LOC: ED 17:34
DX: R11.0 Nausea (principal); E11.65 Type 2 diabetes mellitus with hyperglycemia; E78.00 Pure hypercholesterolemia, unspecified; Z79.82 Long term (current) use of aspirin; Z79.899 Other long term (current) drug therapy; Z79.4 Long term (current) use of insulin
CPT/HCPCS: 36415; 80053; 80178; 81003; 82009; 83690; 85025; 93005; 96374; 99283; 99284; J1815; 81001; 87086

== ENCOUNTER 2022-08-10 10:42 | Emergency (ER) | payer OTHER ==
[2022-08-10 11:21] LABS: BASOPHILS % (AUTO) 0.4 %; EOSINOPHILS # (AUTO) 0.1 10^3/uL (0.0-0.7); EOSINOPHILS % (AUTO) 0.7 %; HCT - HEMATOCRIT 42.2 % (37.0-47.0); LYMPHOCYTES # (AUTO) 0.6 10^3/uL (1.5-3.5); LYMPHOCYTES % (AUTO) 8.4 %; MEAN CORPUSCULAR HEMOGLOBIN 27.7 pg (27.0-31.0); MEAN CORPUSCULAR HGB CONC 33.2 g/dL (32.0-36.0); MEAN CORPUSCULAR VOLUME 83.6 fL (81.0-99.0); MONOCYTES # (AUTO) 0.6 10^3/uL (0.0-1.0); NEUTROPHILS # (AUTO) 5.7 10^3/uL (1.5-6.6); NEUTROPHILS % (AUTO) 82.2 %; PLT - PLATELET COUNT 168 10^3/uL (130-450); RED BLOOD COUNT 5.05 10^6/uL (4.20-5.40); RED CELL DISTRIBUTION WIDTH 13.2 % (12.0-15.0); WHITE BLOOD COUNT 6.9 x10^3/uL (4.8-10.8)
[2022-08-10] MEDS ORDERED: KETOROLAC 15 MG/ML VIAL IVP STA (11:22)
[2022-08-10] MEDS ORDERED: HYDROmorphone 1 MG/ML CARPUJECT IVP STA ×2 (11:22→13:03)
--- OUTSIDE RECORDS SUMMARY | 2022-08-10 11:22 | EXTERNAL MEDICAL SUMMARY RPT | Continuity of Care Document ---
Author Name Unknown Address [address] [place] [address] Phone Organization [place] Address [address] [place] [address] Phone Care Team Providers Care Placement Secretary Name Role Phone Crew, Celestina Unavailable Unavailable Allergies and Intolerances date description facility type (no date) [facility] (unknown) Medications date description facility 2022-06-23 00:00 [place] Carbon[facility] 2022-06-23 00:00 [facility] date description facility 2022-06-23 00:00 Encounter for medication manage [facility] Social History date description facility 2022-06-23 00:00 Ex-smoker (finding) [facility] ital Vital Signs date measurement value units 2022-06-23 00:00 BMI 22.6 kg/m2 2022-06-23 00:00 BP_diastolic 84 mmHg 2022-06-23 00:00 BP_systolic 146 mmHg 2022-06-23 00:00 heart_rate 69 /min 2022-06-23 00:00 height_metric 146.69 cm 2022-06-23 00:00 height_standard 57.75 in 2022-06-23 00:00 o2_saturation 97 % 2022-06-23 00:00 weight_metric 48.67 kg 2022-06-23 00:00 weight_standard 107.3 lb
[2022-08-10 11:23] VITALS: BP 156/71
--- NOTE | 2022-08-10 11:23 | ED Physician Documentation ---
PD HPI ABD PAIN - Stated complaint Stated Complaint: ABD PX - Chief complaint Chief Complaint: Abd Pain - History obtained from History obtained from: Patient - Additional information Additional information: 62-year-old woman with history of remote tubal ligation and cone biopsy as well as bipolar disorder and type 2 diabetes presents with right lower quadrant pain starting at 3 AM this morning. Seen by my partner a few days ago for urinary frequency and simply found have uncontrolled diabetes and was given fluids and insulin. She does not have a glucometer at home and is not checking her blood sugars but is taking insulin. Right lower quadrant pain is sharp and began at 3 AM. Its not associated with changes in bowel movements, fevers, nausea, or urinary burning but she does have urinary frequency. PD PAST MEDICAL HISTORY - Past Medical History Cardiovascular: High cholesterol Respiratory: None Neuro: None Endocrine/Autoimmune: Type 2 diabetes GI: GERD ASSOCIATE DENTIST: None : None HEENT: None Psych: Bipolar disorder Musculoskeletal: None Derm: None - Past Surgical History Past Surgical History: Yes /ASSOCIATE DENTIST: Tubal ligation - Present Medications Home Medications: Ambulatory Orders Medication Instructions Recorded Confirmed Aspirin [Aspirin EC] 81 mg PO DAILY 09/13/14 09/13/14 Atorvastatin [Lipitor] 20 mg PO DAILY 09/13/14 09/13/14 Citalopram [CeleXA] 20 mg PO DAILY 09/13/14 09/13/14 Eszopiclone [Lunesta] 2 mg PO DAILY PRN 09/13/14 09/13/14 Insulin Aspart (Vial) [NovoLOG] 60 units SUBQ AC 09/13/14 09/13/14 Insulin Glargine,Hum.rec.anlog 80 units SUBQ BID 09/13/14 09/13/14 [Lantus] Quinter Carbonate 450 mg PO DAILY 09/13/14 09/13/14 Omeprazole [PriLOSEC] 20 mg PO DAILY 09/13/14 09/13/14 Oxybutynin [Ditropan] 5 mg PO DAILY 09/13/14 09/13/14 Ziprasidone [Geodon] 60 mg PO DAILY 09/13/14 09/13/14 risperiDONE [RisperDAL] 1.5 mg PO BID 09/13/14 09/13/14 Blood Sugar Diagnostic [Glucometer 1 each BID #60 strip 09/04/19 Strips] Blood-Glucose Meter [Glucometer] 1 each MC BID #1 each 09/04/19 Fluconazole [Diflucan] 150 mg PO ONCE #1 tablet 09/04/19 Phenazopyridine HCl [Pyridium] 100 mg PO TID PRN #15 tablet 09/04/19 metroNIDAZOLE [Flagyl] 500 mg PO BID #14 tablet 09/04/19 Naproxen Sodium [Anaprox Ds] 550 mg PO BID #20 tablet 04/03/20 Ibuprofen [Motrin] 800 mg PO Q8H PRN #30 tablet 04/18/21 methocarbamoL [Robaxin] 500 mg PO Q6H PRN #20 tablet 04/18/21 Ciprofloxacin HCl [Cipro] 500 mg PO BID #20 tablet 08/10/22 Oxycodone HCl/Acetaminophen 1 - 2 each PO Q6H PRN #14 tablet 08/10/22 [Percocet 5-325 mg Tablet] - Allergies Allergies/Adverse Reactions: Allergies Allergy/AdvReac Type Severity Reaction Status Date / Time lisinopril AdvReac Respiratory Verified 08/10/22 10:52 meperidine [From Demerol] AdvReac Dizziness Verified 08/10/22 10:52 - Social History Does the pt smoke?: No Smoking Status: Never smoker Does the pt drink ETOH?: No Does the pt have substance abuse?: No - Immunizations Immunizations are current?: Yes - POLST Patient has POLST: No PD ED PE NORMAL - Vitals Vital signs reviewed: Yes - General General: Alert and oriented X 3, No acute distress - Cardiac Cardiac: RRR, No murmur - Respiratory Respiratory: No respiratory distress, Clear bilaterally - Abdomen Abdomen: Normal bowel sounds, Soft, Non tender - Neuro Neuro: Alert and oriented X 3, Normal speech - Psych Psych: Normal mood, Normal affect Results - Vitals Vitals: Vital Signs - 24 hr 08/10/22 08/10/22 10:49 11:18 Temperature 36.0 C L Heart Rate 75 71 Respiratory 16 16 Rate Blood Pressure 125/76 156/71 H O2 Saturation 99 99 Oxygen O2 Source Room air - Labs Labs: Laboratory Tests 08/10/22 08/10/22 08/10/22 11:13 11:13 11:13 WBC 6.9 RBC 5.05 Hgb 14.0 Hct 42.2 MCV 83.6 MCH 27.7 MCHC 33.2 RDW 13.2 Plt Count 168 MPV 11.0 H Neut # (Auto) 5.7 Lymph # (Auto) 0.6 L [place] # (Auto) 0.6 Eos # (Auto) 0.1 Baso # (Auto) 0.0 Absolute Nucleated RBC 0.00 Nucleated RBC % 0.0 Sodium 136 Potassium 3.4 L Chloride 105 Carbon Dioxide 25 Anion Gap 6.0 BUN 17 Creatinine 0.6 Estimated GFR (MDRD) 101 Glucose 352 H Calcium 8.8 Total Bilirubin 0.5 AST 18 ALT 19 Alkaline Phosphatase 93 Total Protein 6.7 Albumin 3.7 Globulin 3.0 Albumin/Globulin Ratio 1.2 Lipase 74 H Urine Color Urine Clarity Urine pH Ur Specific [place] Urine Protein Urine Glucose (UA) Urine Ketones Urine Occult Blood Urine Nitrite Urine Bilirubin Urine Urobilinogen Ur Leukocyte Esterase Urine RBC Urine WBC Ur Squamous Epith Cells Urine Bacteria Ur Microscopic Review Urine Culture Comments Last Dose Date UNKNOWN Last Dose Time UNKNOWN Quinter < 0.05 08/10/22 11:37 WBC RBC Hgb Hct MCV MCH MCHC RDW Plt Count MPV Neut # (Auto) Lymph # (Auto) [place] # (Auto) Eos # (Auto) Baso # (Auto) Absolute Nucleated RBC Nucleated RBC % Sodium Potassium Chloride Carbon Dioxide Anion Gap BUN Creatinine Estimated GFR (MDRD) Glucose Calcium Total Bilirubin AST ALT Alkaline Phosphatase Total Protein Albumin Globulin Albumin/Globulin Ratio Lipase Urine Color YELLOW Urine Clarity CLEAR Urine pH 6.0 Ur Specific [place] 1.010 Urine Protein 30 H Urine Glucose (UA) >=1000 H Urine Ketones NEGATIVE Urine Occult Blood NEGATIVE Urine Nitrite POSITIVE H Urine Bilirubin NEGATIVE Urine Urobilinogen 0.2 (NORMAL) Ur Leukocyte Esterase NEGATIVE Urine RBC 0-5 Urine WBC 6-10 H Ur Squamous Epith Cells RARE Squamous Urine Bacteria Moderate H Ur Microscopic Review INDICATED Urine Culture Comments INDICATED Last Dose Date Last Dose Time Quinter - Rads (name of study) CT of the abdomen pelvis shows detailed ptosis of the liver, otherwise unremarkable Relevant Findings:: Final report received, EMP independent interpretation of test PD Medical Decision Making - ED course ED course: 62-year-old woman with poorly controlled diabetes presents with right lower quadrant pain and a benign examination. Vital signs were unremarkable. Work-up in the department showed a normal CBC, chemistries really only notable for elevated blood glucose. She does have pyuria with no measurable lithium. This is consistent with pyelonephritis and she is given Rocephin here and Cipro home- going with close return precautions. Departure - Departure Disposition: Home, Self Care Clinical Impression: Abdominal pain, Pyelonephritis, Poorly controlled type 2 diabetes mellitus Condition: Good Record reviewed to determine appropriate education?: Yes Instructions: Pyelonephritis Dc Prescriptions: Ciprofloxacin HCl [Cipro] 500 mg PO BID #20 tablet Oxycodone HCl/Acetaminophen [Percocet 5-325 mg Tablet] 1 - 2 each PO Q6H PRN #14 tablet PRN Reason: pain Comments: I sent your prescription electronically to [email or web address] in [place]. We will culture your urine, the results should be done in 48-72 hours. If an antibiotic change is necessary we will call you. Return if worse in the meant am[place]o, especially if you develop increasing flank pain, fevers, or cannot keep down the medication. Call your doctor to arrange a follow-up appointment, make the next available appointment. In the interim, return anytime if worse or if new symptoms develop. I am prescribing a short course of narcotic pain medication for you. These are potentially dangerous and addictive medications that should be used carefully. These medications may constipate you. Take an azts-jvz-eigtwut stool softener (docusate) twice daily with plenty of water while taking these medications. If you go 24 hours without a bowel movement, take [id number] miralax, per package instructions. Do not drink or drive while taking these medications. If you received narcotic or sedating medications while in the emergency d epartment, do not drive for 24 hours. Store this medication in a safe, secure place and out of reach of children. It is a violation of federal law to give or sell this medication to another person or to use in a manner other than prescribed. The ED will not refill narcotic prescriptions, including prescriptions lost or stolen. To dispose of unwanted medications: 1. [facility] provides a drop box for medication in pill form only (no liquids) 8:00 am to 4:30 p.m. Wednesday-Wednesday in the lobby of the [facility], [address] Empty pills into ziplock bag before disposal. Call [phone] for information. 2.[employer] is a free service available to all [facility] residents. Go to https://med-project.org/locations/[email or web address]/ Note that many narcotic pain relievers also contain Tylenol/acetaminophen. Please ensure that your total dose of acetaminophen from all sources does not exceed 3 g (3000 mg) per day. He did have incidental note of hepatic steatosis/fatty liver on your CAT scan. Please discuss this with your doctor. Discharge Date/Time: 08/10/22 14:27
[2022-08-10 11:39] LABS: ALBUMIN 3.7 g/dL (3.2-5.5); ALBUMIN/GLOBULIN RATIO 1.2 (1.0-2.2); BILIRUBIN,TOTAL 0.5 mg/dL (0.2-1.0); CALCIUM 8.8 mg/dL (8.5-10.3); CREATININE 0.6 mg/dL (0.4-1.0); POTASSIUM 3.4 mmol/L (3.5-5.0); TOTAL PROTEIN 6.7 g/dL (6.7-8.2)
[2022-08-10 11:43] LABS: BILIRUBIN,URINE NEGATIVE (NEGATIVE); GLUCOSE, URINE (UA) >=1000 mg/dL (NEGATIVE); KETONES,URINE (UA) NEGATIVE (NEGATIVE); LEUKOCYTE ESTERASE, URINE NEGATIVE (NEGATIVE); NITRITE,URINE POSITIVE (NEGATIVE); OCCULT BLOOD,URINE NEGATIVE (NEGATIVE); PROTEIN,URINE 30 mg/dL (NEGATIVE); UROBILINOGEN,URINE 0.2 (NORMAL) E.U./dL (NORMAL)
[2022-08-10 11:45] LABS: CLARITY,URINE CLEAR (CLEAR)
[2022-08-10 11:51] LABS: BACTERIA,URINE Moderate /HPF (None Seen); RBC,URINE 0-5 /HPF (0-5); SQUAMOUS EPITHELIAL CELL,UR RARE Squamous (<= Few)
[2022-08-10] MEDS ORDERED: iohexoL-300 100 ML VIAL ONE (11:57)
[2022-08-10 12:05] LABS: LITHIUM < 0.05 mmol/L
[2022-08-10] MEDS ORDERED: cefTRIAXone 1 GM VIAL IVP STA (12:16)
--- NOTE | 2022-08-10 12:48 | CT Report ---
PROCEDURE: ABDOMEN/PELVIS W INDICATIONS: iv only, rlq pain CONTRAST: 100ml Omnipaque 300 TECHNIQUE: After the administration of intravenous contrast, 5 mm thick sections acquired from the diaphragms to the symphysis. 5 mm thick coronal and sagittal reformats were acquired. For radiation dose reducti on, the following was used: automated exposure control, adjustment of mA and/or kV according to cristine ent size. COMPARISON: 10/29/2021 FINDINGS: Image quality: Excellent. Lung bases and heart: Unremarkable. Liver: Very mild diffuse hepatic steatosis. No solid mass. Gallbladder and biliary tree: No radiopaque stones or wall thickening. No biliary dilation. Spleen: No splenomegaly. Pancreas: No pancreatic ductal dilation. Adrenals: No adrenal nodule. Kidneys and ureters: No hydronephrosis. No renal cystic lesion which requires follow up. No solid mas s. Bowel and peritoneum: No bowel distension. No pathologic free fluid. A normal appendix is identified. Lymph nodes: No central or retroperitoneal adenopathy. Vessels: No infrarenal aortic aneurysm. PELVIS Reproductive organs: Unremarkable. Bladder: No abnormal wall thickening, accounting for underdistension. Pelvic lymph nodes: No pelvic adenopathy by size criteria. Bones: No aggressive osseous abnormality. Other: No significant ventral or inguinal hernia. IMPRESSION: 1. A normal appendix is visualized. No evidence of acute abdominal process. 2. Very mild diffuse hepatic steatosis Reviewed by: Rivera Muñoz MD on 08/10/2022 12:47 PM PDT Approved by: Rivera Muñoz MD on 08/10/2022 12:47 PM PDT Station ID: [id number]
[2022-08-10] MEDS ORDERED: iohexoL-300 100 ML VIAL IVP ONE (13:49)
== END 2022-08-10 14:27 | disposition home or self-care (01) ==
LOC: ED 10:42
DX: N12 Tubulo-interstitial nephritis, not specified as acute or chronic (principal); E11.65 Type 2 diabetes mellitus with hyperglycemia; R10.31 Right lower quadrant pain; E78.00 Pure hypercholesterolemia, unspecified; Z79.4 Long term (current) use of insulin; Z79.82 Long term (current) use of aspirin; Z79.899 Other long term (current) drug therapy
CPT/HCPCS: 36415; 74177; 80053; 80178; 81001; 83690; 85025; 87086; 96374; 96375; 96376; 99284; J1170; Q9967; 81003

== ENCOUNTER 2022-08-23 21:57 | Emergency (ER) | payer OTHER ==
--- OUTSIDE RECORDS SUMMARY | 2022-08-23 22:10 | EXTERNAL MEDICAL SUMMARY RPT | Continuity of Care Document ---
Author Name Unknown Address [address] [place] [address] Phone Organization [place] Address [address] [place] [address] Phone Care Team Providers Care Pickle Maker Name Role Phone Crew, Celestina Unavailable Unavailable Allergies and Intolerances date description facility type (no date) [facility] (unknown) Medications date description facility 2022-06-23 00:00 [place] [facility] 2022-06-23 00:00 Ziprasidone [facility] Problems date description facility 2022-06-23 00:00 Encounter for medication manage [facility] Social History date description facility 2022-06-23 00:00 Ex-smoker (finding) [facility] Vital Signs date measurement value units 2022-06-23 00:00 BMI 22.6 kg/m2 2022-06-23 00:00 BP_diastolic 84 mmHg 2022-06-23 00:00 BP_systolic 146 mmHg 2022-06-23 00:00 heart_rate 69 /min 2022-06-23 00:00 height_metric 146.69 cm 2022-06-23 00:00 height_standard 57.75 in 2022-06-23 00:00 o2_saturation 97 % 2022-06-23 00:00 weight_metric 48.67 kg 2022-06-23 00:00 weight_standard 107.3 lb
[2022-08-23 22:35] LABS: BILIRUBIN,URINE NEGATIVE (NEGATIVE); CLARITY,URINE CLEAR (CLEAR); GLUCOSE, URINE (UA) >=1000 mg/dL (NEGATIVE); KETONES,URINE (UA) NEGATIVE (NEGATIVE); LEUKOCYTE ESTERASE, URINE NEGATIVE (NEGATIVE); NITRITE,URINE NEGATIVE (NEGATIVE); OCCULT BLOOD,URINE NEGATIVE (NEGATIVE); PH,URINE 5.5 PH (5.0-7.5); PROTEIN,URINE TRACE mg/dL (NEGATIVE); UROBILINOGEN,URINE 0.2 (NORMAL) E.U./dL (NORMAL)
[2022-08-23 22:53] LABS: BASOPHILS % (AUTO) 0.4 %; EOSINOPHILS # (AUTO) 0.2 10^3/uL (0.0-0.7); EOSINOPHILS % (AUTO) 2.5 %; HCT - HEMATOCRIT 40.4 % (37.0-47.0); HGB - HEMOGLOBIN 13.3 g/dL (12.0-16.0); LYMPHOCYTES # (AUTO) 1.5 10^3/uL (1.5-3.5); LYMPHOCYTES % (AUTO) 22.5 %; MEAN CORPUSCULAR HEMOGLOBIN 27.7 pg (27.0-31.0); MEAN CORPUSCULAR HGB CONC 32.9 g/dL (32.0-36.0); MEAN PLATELET VOLUME 10.6 fL (7.9-10.8); MONOCYTES # (AUTO) 0.5 10^3/uL (0.0-1.0); NEUTROPHILS # (AUTO) 4.4 10^3/uL (1.5-6.6); NEUTROPHILS % (AUTO) 66.2 %; PLT - PLATELET COUNT 181 10^3/uL (130-450); RED BLOOD COUNT 4.81 10^6/uL (4.20-5.40); RED CELL DISTRIBUTION WIDTH 13.4 % (12.0-15.0); WHITE BLOOD COUNT 6.7 x10^3/uL (4.8-10.8)
[2022-08-23 23:06] LABS: ALBUMIN 3.4 g/dL (3.2-5.5); BILIRUBIN,TOTAL 0.6 mg/dL (0.2-1.0); CALCIUM 8.9 mg/dL (8.5-10.3); CREATININE 0.8 mg/dL (0.4-1.0); TOTAL PROTEIN 6.7 g/dL (6.7-8.2)
[2022-08-23] MEDS ORDERED: SODIUM CHLORIDE 0.9% 1,000 ML IV STA (23:21)
[2022-08-24] MEDS ORDERED: iohexoL-300 100 ML VIAL ONE (00:06)
[2022-08-24] MEDS ORDERED: iohexoL-300 100 ML VIAL IVP ONE (01:13)
--- NOTE | 2022-08-24 01:25 | CT Report ---
PROCEDURE: ABDOMEN/PELVIS W INDICATIONS: R sided abd pain CONTRAST: 100 ml omni 300 TECHNIQUE: After the administration of IV contrast, 5 mm thick sections acquired from the diaphragms to the symp hysis. 5 mm thick coronal and sagittal reformats were acquired. For radiation dose reduction, the f ollowing was used: automated exposure control, adjustment of mA and/or kV according to patient size. COMPARISON: CT abdomen pelvis 08/10/2022 FINDINGS: Image quality: Excellent. Lung bases and heart: Unremarkable. Liver: No solid mass. Gallbladder and biliary tree: Unremarkable Spleen: No splenomegaly. Pancreas: No pancreatic ductal dilation. Adrenals: No adrenal nodule. Kidneys and ureters: No hydronephrosis. Simple bilateral renal cysts. No renal cystic lesion which re quires follow up. No solid mass. Bowel and peritoneum: No bowel distension. No pathologic free fluid. Prominent colonic stool. No obst ruction. Appendix is normal. Lymph nodes: No central or retroperitoneal adenopathy. Vessels: No infrarenal aortic aneurysm. PELVIS Reproductive organs: Unremarkable. Bladder: No abnormal wall thickening, accounting for underdistension. Pelvic lymph nodes: No pelvic adenopathy by size criteria. Bones: No aggressive osseous abnormality. Other: No significant ventral or inguinal hernia. IMPRESSION: Significant colonic stool suggestive constipation. No obstruction. Reviewed by: Rylee Woodall MD on 08/24/2022 1:24 AM PDT Approved by: Rylee Woodall MD on 08/24/2022 1:24 AM PDT Station ID: [id number]
--- NOTE | 2022-08-24 01:50 | ED Physician Documentation ---
PD HPI ABD PAIN - Stated complaint Stated Complaint: FEMALE - Chief complaint Chief Complaint: Abd Pain - History obtained from History obtained from: Patient - Additional information Additional information: Patient is a 62-year-old female presenting for evaluation of right lower quadrant pain that has been present since this afternoon. Pain does not radiate elsewhere. No nausea or vomiting. Last bowel movement was yesterday. No history of any abdominal surgeries. No fever. No dysuria or hematuria. Patient reports having similar symptoms here earlier this month and was diagnosed with a bladder infection. She did complete a course of antibiotics. Review of Systems Constitutional: denies: Fever Cardiac: denies: Chest pain / pressure Respiratory: denies: Dyspnea GI: reports: Abdominal Pain. denies: Vomiting, Diarrhea Musculoskeletal: denies: Back pain PD PAST MEDICAL HISTORY - Past Medical History Cardiovascular: High cholesterol Respiratory: None Neuro: None Endocrine/Autoimmune: Type 2 diabetes GI: GERD RAILWAY SIGNAL OPERATOR: None : None HEENT: None Psych: Bipolar disorder Musculoskeletal: None Derm: None - Past Surgical History Past Surgical History: Yes /RAILWAY SIGNAL OPERATOR: Tubal ligation - Present Medications Home Medications: Ambulatory Orders Medication Instructions Recorded Confirmed Aspirin [Aspirin EC] 81 mg PO DAILY 09/13/14 09/13/14 Atorvastatin [Lipitor] 20 mg PO DAILY 09/13/14 09/13/14 Citalopram [CeleXA] 20 mg PO DAILY 09/13/14 09/13/14 Eszopiclone [Lunesta] 2 mg PO DAILY PRN 09/13/14 09/13/14 Insulin Aspart (Vial) [NovoLOG] 60 units SUBQ AC 09/13/14 09/13/14 Insulin Glargine,Hum.rec.anlog 80 units SUBQ BID 09/13/14 09/13/14 [Lantus] [place] Carbonate 450 mg PO DAILY 09/13/14 09/13/14 Omeprazole [PriLOSEC] 20 mg PO DAILY 09/13/14 09/13/14 Oxybutynin [Ditropan] 5 mg PO DAILY 09/13/14 09/13/14 Ziprasidone [Geodon] 60 mg PO DAILY 09/13/14 09/13/14 risperiDONE [RisperDAL] 1.5 mg PO BID 09/13/14 09/13/14 Blood Sugar Diagnostic [Glucometer 1 each MC BID #60 strip 09/04/19 Strips] Blood-Glucose Meter [Glucometer] 1 each MC BID #1 each 09/04/19 Fluconazole [Diflucan] 150 mg PO ONCE #1 tablet 09/04/19 Phenazopyridine HCl [Pyridium] 100 mg PO TID PRN #15 tablet 09/04/19 metroNIDAZOLE [Flagyl] 500 mg PO BID #14 tablet 09/04/19 Naproxen Sodium [Anaprox Ds] 550 mg PO BID #20 tablet 04/03/20 Ibuprofen [Motrin] 800 mg PO Q8H PRN #30 tablet 04/18/21 methocarbamoL [Robaxin] 500 mg PO Q6H PRN #20 tablet 04/18/21 Ciprofloxacin HCl [Cipro] 500 mg PO BID #20 tablet 08/10/22 Oxycodone HCl/Acetaminophen 1 - 2 each PO Q6H PRN #14 tablet 08/10/22 [Percocet 5-325 mg Tablet] Magnesium Citrate 148 ml PO Q3HR PRN #296 ml 08/24/22 - Allergies Allergies/Adverse Reactions: Allergies Allergy/AdvReac Type Severity Reaction Status Date / Time lisinopril AdvReac Respiratory Verified 08/10/22 10:52 meperidine [From Demerol] AdvReac Dizziness Verified 08/10/22 10:52 - Social History Does the pt smoke?: No Smoking Status: Never smoker Does the pt drink ETOH?: No Does the pt have substance abuse?: No - Immunizations Immunizations are current?: Yes - POLST Patient has POLST: No PD ED PE NORMAL - General General: Alert and oriented X 3, No acute distress, Well developed/nourished - HEENT HEENT: Atraumatic - Neck Neck: Supple, no meningeal sign - Cardiac Cardiac: RRR, No murmur - Respiratory Respiratory: No respiratory distress, Clear bilaterally - Abdomen Abdomen: Normal bowel sounds, Soft, Non distended, Other (Mild generalized abdominal tenderness to palpation) - Derm Derm: Warm and dry - Neuro Neuro: Alert and oriented X 3, Normal speech Results - Vitals Vitals: Vital Signs - 24 hr 08/23/22 08/24/22 08/24/22 22:10 00:11 01:54 Temperature 36.4 C L Heart Rate 66 70 75 Respiratory 16 18 16 Rate Blood Pressure 128/64 161/79 H 155/74 H O2 Saturation 98 99 99 Oxygen O2 Source Room air - Labs Labs: Laboratory Tests 08/23/22 08/23/22 08/23/22 22:23 22:47 22:47 WBC 6.7 RBC 4.81 Hgb 13.3 Hct 40.4 MCV 84.0 MCH 27.7 MCHC 32.9 RDW 13.4 Plt Count 181 MPV 10.6 Neut # (Auto) 4.4 Lymph # (Auto) 1.5 [place] # (Auto) 0.5 Eos # (Auto) 0.2 Baso # (Auto) 0.0 Absolute Nucleated RBC 0.00 Nucleated RBC % 0.0 Sodium 137 Potassium 4.0 Chloride 105 Carbon Dioxide 23 Anion Gap 9.0 BUN 28 H Creatinine 0.8 Estimated GFR (MDRD) 72 L Glucose 333 H Calcium 8.9 Total Bilirubin 0.6 AST 15 ALT 18 Alkaline Phosphatase 85 Total Protein 6.7 Albumin 3.4 Globulin 3.3 Albumin/Globulin Ratio 1.0 Lipase 72 H Urine Color LT. YELLOW Urine Clarity CLEAR Urine pH 5.5 Ur Specific [place] 1.010 Urine Protein TRACE Urine Glucose (UA) >=1000 H Urine Ketones NEGATIVE Urine Occult Blood NEGATIVE Urine Nitrite NEGATIVE Urine Bilirubin NEGATIVE Urine Urobilinogen 0.2 (NORMAL) Ur Leukocyte Esterase NEGATIVE Ur Microscopic Review NOT INDICATED Urine Culture Comments NOT INDICATED PD Medical Decision Making - ED course Complexity details: reviewed results, re-evaluated patient, d/w patient ED course: Patient presenting for evaluation of abdominal pain. Mild generalized tenderness but no peritoneal signs. Labs including CBC, chemistries and urinalysis were reviewed. She does have an elevated glucose of 333. Does not appear to be in DKA or HHS.She did receive IV fluids. CT of the abdomen pelvis was obtained which I also reviewed. I do not see signs of appendicitis or other infectious process. Does show evidence of constipation. Patient states her last bowel movement was yesterday. Discussed treatments for constipation and patient is agreeable to trial of magnesium citrate at home.Discussed need for close follow-up with PCP as well as concerning symptoms to return for.Repeat abdominal exam is benign. Departure - Departure Disposition: Home, Self Care Clinical Impression: Abdominal pain, Constipation Condition: Stable Instructions: ED Abdominal Pain Female Non-Specific Abdominal Pain, ED Constipation Prescriptions: Magnesium Citrate 148 ml PO Q3HR PRN #296 ml PRN Reason: Constipation Comments: Your blood sugar was slightly elevated at 333. Otherwise your labs do not show any significant abnormalities or signs of infection. Your urine does not show infection. Your CT scan shows constipation but otherwise no signs of infection or process requiring surgery. I have sent a prescription for magnesium citrate to [facility] in [place]. Please use as directed. If you develop any new or worsening symptoms please consider return to the emergency department. I would recommend follow-up with your primary care provider regarding your symptoms as well as for follow-up on your blood sugar. Discharge Date/Time: 08/24/22 01:55
[2022-08-24 01:58] VITALS: BP 155/74
== END 2022-08-24 01:55 | disposition home or self-care (01) ==
LOC: ED 21:57
DX: R10.817 Generalized abdominal tenderness (principal); K59.00 Constipation, unspecified; E11.65 Type 2 diabetes mellitus with hyperglycemia; Z79.4 Long term (current) use of insulin
CPT/HCPCS: 36415; 74177; 80053; 81003; 83690; 85025; 99284; Q9967; 81001; 87086

== ENCOUNTER 2022-09-04 08:05 | Emergency (ER) | payer OTHER ==
--- OUTSIDE RECORDS SUMMARY | 2022-09-04 08:18 | EXTERNAL MEDICAL SUMMARY RPT | Continuity of Care Document ---
Author Name Unknown Address [address] [place] [address] Phone Organization [facility] Address [address] [place] [address] Phone Care Team Providers Care Cut Out Operator Name Role Phone Crew, Celestina Unavailable Unavailable Allergies and Intolerances date description facility type (no date) [facility] (unknown) Medications date description facility 2022-06-23 00:00 [place] [facility] 2022-06-23 00:00 Zipras[facility] Problems date description facility 2022-06-23 00:00 Encounter for medication manage [facility] Social History date description facility 2022-06-23 00:00 Ex-smoker (finding) [facility] Vital Signs date measurement value units 2022-06-23 00:00 BMI 22.6 kg/m2 2022-06-23 00:00 BP_diastolic 84 mmHg 2022-06-23 00:00 BP_systolic 146 mmHg 2022-06-23 00:00 heart_rate 69 /min 2022-06-23 00:00 height_metric 146.69 cm 2022-06-23 00:00 height_standard 57.75 in 2022-06-23 00:00 o2_saturation 97 % 2022-06-23 00:00 weight_metric 48.67 kg 2022-06-23 00:00 weight_standard 107.3 lb
[2022-09-04 08:30] VITALS: BP 139/70
[2022-09-04 08:51] LABS: BILIRUBIN,URINE NEGATIVE (NEGATIVE); GLUCOSE, URINE (UA) >=1000 mg/dL (NEGATIVE); KETONES,URINE (UA) NEGATIVE (NEGATIVE); LEUKOCYTE ESTERASE, URINE NEGATIVE (NEGATIVE); NITRITE,URINE NEGATIVE (NEGATIVE); OCCULT BLOOD,URINE NEGATIVE (NEGATIVE); PH,URINE 5.5 PH (5.0-7.5); PROTEIN,URINE TRACE mg/dL (NEGATIVE); UROBILINOGEN,URINE 0.2 (NORMAL) E.U./dL (NORMAL)
[2022-09-04 08:52] LABS: CLARITY,URINE CLEAR (CLEAR)
[2022-09-04] MEDS ORDERED: HYDROmorphone 1 MG/ML CARPUJECT IVP STA (09:02)
[2022-09-04 09:16] LABS: BASOPHILS % (AUTO) 0.4 %; EOSINOPHILS % (AUTO) 0.5 %; HCT - HEMATOCRIT 39.1 % (37.0-47.0); HGB - HEMOGLOBIN 13.1 g/dL (12.0-16.0); LYMPHOCYTES # (AUTO) 0.6 10^3/uL (1.5-3.5); LYMPHOCYTES % (AUTO) 7.3 %; MEAN CORPUSCULAR HEMOGLOBIN 28.1 pg (27.0-31.0); MEAN CORPUSCULAR HGB CONC 33.5 g/dL (32.0-36.0); MEAN CORPUSCULAR VOLUME 83.7 fL (81.0-99.0); MEAN PLATELET VOLUME 11.2 fL (7.9-10.8); MONOCYTES # (AUTO) 0.5 10^3/uL (0.0-1.0); MONOCYTES % (AUTO) 6.6 %; NEUTROPHILS # (AUTO) 6.7 10^3/uL (1.5-6.6); NEUTROPHILS % (AUTO) 84.9 %; PLT - PLATELET COUNT 154 10^3/uL (130-450); RED BLOOD COUNT 4.67 10^6/uL (4.20-5.40); RED CELL DISTRIBUTION WIDTH 13.8 % (12.0-15.0); WHITE BLOOD COUNT 7.9 x10^3/uL (4.8-10.8)
[2022-09-04 09:34] LABS: ALBUMIN 3.5 g/dL (3.2-5.5); ALBUMIN/GLOBULIN RATIO 1.1 (1.0-2.2); BILIRUBIN,TOTAL 0.6 mg/dL (0.2-1.0); CALCIUM 8.9 mg/dL (8.5-10.3); CREATININE 0.6 mg/dL (0.4-1.0); POTASSIUM 4.2 mmol/L (3.5-5.0); TOTAL PROTEIN 6.7 g/dL (6.7-8.2)
[2022-09-04] MEDS ORDERED: SODIUM CHLORIDE 0.9% 1,000 ML IV STA (09:39)
--- NOTE | 2022-09-04 09:43 | ED Physician Documentation ---
PD HPI ABD PAIN - Stated complaint Stated Complaint: FEMALE GI - Chief complaint Chief Complaint: Abd Pain - History obtained from History obtained from: Patient - Additional information Additional information: Patient is a 62-year-old female presenting for evaluation of right-sided abdominal pain that she describes as sharp that is been present since this morning. She denies associated nausea or vomiting and states that she was easily able to eat her breakfast this morning without any issue. No diarrhea. Her last bowel movement was yesterday. Patient reports having urinary frequency but states that this is chronic for her due to poorly controlled diabetes. She denies dysuria or hematuria. She reports concern that this could be related to a kidney or bladder infection because she had similar symptoms a few weeks ago and was told it was related to a urine infection.She was again seen in the ER on 08/24/2022 for this type of pain and found to have constipation at that time. She is reports taking the medication that we had prescribed with having a bowel movement and has been doing well since.Denies prior abdominal surgeries. Review of Systems Constitutional: denies: Fever Cardiac: denies: Chest pain / pressure Respiratory: denies: Dyspnea GI: reports: Abdominal Pain. denies: Vomiting, Bloody / black stool : reports: Frequency. denies: Dysuria Neurologic: denies: Headache PD PAST MEDICAL HISTORY - Past Medical History Cardiovascular: High cholesterol Respiratory: None Neuro: None Endocrine/Autoimmune: Type 2 diabetes GI: GERD ACTUARIAL TECHNICIAN: None : None HEENT: None Psych: Bipolar disorder Musculoskeletal: None Derm: None - Past Surgical History Past Surgical History: Yes /ACTUARIAL TECHNICIAN: Tubal ligation - Present Medications Home Medications: Ambulatory Orders Medication Instructions Recorded Confirmed Aspirin [Aspirin EC] 81 mg PO DAILY 09/13/14 09/13/14 Atorvastatin [Lipitor] 20 mg PO DAILY 09/13/14 09/13/14 Eszopiclone [Lunesta] 2 mg PO DAILY PRN 09/13/14 09/13/14 Insulin Aspart (Vial) [NovoLOG] 60 units SUBQ AC 09/13/14 09/13/14 Insulin Glargine,Hum.rec.anlog 80 units SUBQ BID 09/13/14 09/13/14 [Lantus] Omeprazole [PriLOSEC] 20 mg PO DAILY 09/13/14 09/13/14 Oxybutynin [Ditropan] 5 mg PO DAILY 09/13/14 09/13/14 Blood Sugar Diagnostic [Glucometer 1 each BID #60 strip 09/04/19 Strips] Blood-Glucose Meter [Glucometer] 1 each BID #1 each 09/04/19 Naproxen Sodium [Anaprox Ds] 550 mg PO BID #20 tablet 04/03/20 Ibuprofen [Motrin] 800 mg PO Q8H PRN #30 tablet 04/18/21 methocarbamoL [Robaxin] 500 mg PO Q6H PRN #20 tablet 04/18/21 Oxycodone HCl/Acetaminophen 1 - 2 each PO Q6H PRN #14 tablet 08/10/22 [Percocet 5-325 mg Tablet] - Allergies Allergies/Adverse Reactions: Allergies Allergy/AdvReac Type Severity Reaction Status Date / Time lisinopril AdvReac Respiratory Verified 09/04/22 08:35 meperidine [From Demerol] AdvReac Dizziness Verified 09/04/22 08:35 - Social History Does the pt smoke?: No Smoking Status: Never smoker Does the pt drink ETOH?: No Does the pt have substance abuse?: No - Immunizations Immunizations are current?: Yes - POLST Patient has POLST: No PD ED PE NORMAL - General General: Alert and oriented X 3, No acute distress, Well developed/nourished - HEENT HEENT: Atraumatic - Neck Neck: Supple, no meningeal sign - Cardiac Cardiac: RRR, No murmur - Respiratory Respiratory: No respiratory distress, Clear bilaterally - Abdomen Abdomen: Normal bowel sounds, Soft, Non tender, Non distended - Back Back: No CVA TTP - Derm Derm: Warm and dry - Neuro Neuro: Normal speech Results - Vitals Vitals: Vital Signs - 24 hr 09/04/22 08:15 Temperature 97.6 C H Heart Rate 71 Respiratory 18 Rate Blood Pressure 139/70 H O2 Saturation 100 Oxygen O2 Source Room air - Labs Labs: Laboratory Tests 09/04/22 09/04/22 09/04/22 08:20 09:09 09:09 WBC 7.9 RBC 4.67 Hgb 13.1 Hct 39.1 MCV 83.7 MCH 28.1 MCHC 33.5 RDW 13.8 Plt Count 154 MPV 11.2 H Neut # (Auto) 6.7 H Lymph # (Auto) 0.6 L [place] # (Auto) 0.5 Eos # (Auto) 0.0 Baso # (Auto) 0.0 Absolute Nucleated RBC 0.00 Nucleated RBC % 0.0 Sodium 134 L Potassium 4.2 Chloride 104 Carbon Dioxide 22 Anion Gap 8.0 BUN 24 H Creatinine 0.6 Estimated GFR (MDRD) 101 Glucose 420 H Calcium 8.9 Total Bilirubin 0.6 AST 13 ALT 21 Alkaline Phosphatase 97 Total Protein 6.7 Albumin 3.5 Globulin 3.2 Albumin/Globulin Ratio 1.1 Lipase 57 H Urine Color LT. YELLOW Urine Clarity CLEAR Urine pH 5.5 Ur Specific [place] 1.020 Urine Protein TRACE Urine Glucose (UA) >=1000 H Urine Ketones NEGATIVE Urine Occult Blood NEGATIVE Urine Nitrite NEGATIVE Urine Bilirubin NEGATIVE Urine Urobilinogen 0.2 (NORMAL) Ur Leukocyte Esterase NEGATIVE Ur Microscopic Review NOT INDICATED Urine Culture Comments NOT INDICATED PD Medical Decision Making - ED course Complexity details: reviewed results, re-evaluated patient, d/w patient ED course: Patient is a 62-year-old presenting for evaluation of right-sided abdominal pain. She has urinary frequency but denies other new symptoms and states his frequency is normal for her due to uncontrolled diabetes. She does not appear to be in DKA. Labs including CBC, chemistries and urinalysis were obtained. Glucose is elevated at 420 but again she does not appear to be in DKA. No signs of urinary tract infection. CT scan was obtained which does not show a stone. She does not have tenderness noted on exam and she was able to eat today thus I feel that a surgical process is unlikely.Patient believes that she is overdue for colonoscopy so I encouraged her to have close follow-up with her PCP regarding her glucose as well as her abdominal symptoms and that she should schedule a colonoscopy as soon as possible as she is overdue. Patient counseled regarding concerning symptoms to return for. Departure - Departure Disposition: 01 Home, Self Care Clinical Impression: Right sided abdominal pain, Hyperglycemia Condition: Stable Instructions: ED Abdominal Pain Female Non-Specific Abdominal Pain, ED Hyperglycemia Diabetic Comments: Your labs and CT scan do not reveal any findings To explain the pain that you are having earlier today. Your urine does not show any infection. Your blood sugar is quite elevated at 420. You need close follow-up with your primary care provider for management of your diabetes and for follow-up regarding your abdominal pain. If you are overdue for a colonoscopy please schedule one as soon as possible. You may also want to trial MiraLAX daily for the next several days to help with any constipation. Please return to the ER with any worsening symptoms. Discharge Date/Time: 09/04/22 11:48
--- NOTE | 2022-09-04 10:18 | CT Report ---
PROCEDURE: KUB INDICATIONS: R sided pain TECHNIQUE: A CT scan of the abdomen and pelvis was performed without the use of intravenous contrast. Images we re recorded and evaluated at appropriate window settings. Reformats: coronal and sagittal. For radiat ion dose reduction, the following was used: automated exposure control, adjustment of mA and/or kV ac cording to patient size. COMPARISON: CT abdomen and pelvis with, 08/24/2022. FINDINGS: Image quality: Excellent. Kidneys and ureters: No hydronephrosis. No contour-deforming mass. There is a 2.1 cm exophytic cyst i n the superior pole of the right kidney. Bladder: Bladder wall thickness is normal, accounting for underdistention. No calcified bladder stone s. OTHER: Lung bases and heart: Unremarkable. Liver: No solid mass. Gallbladder and biliary tree: Contracted gallbladder. No gallstones. No biliary dilation. Spleen: No splenomegaly. Pancreas: No pancreatic ductal dilation. Adrenals: No adrenal nodule. Bowel and peritoneum: No bowel distension. No pathologic free fluid. Moderate colonic stool. Appendix is normal. Lymph nodes: No central or retroperitoneal adenopathy. Vessels: No infrarenal aortic aneurysm. Reproductive organs: Unremarkable. Pelvic lymph nodes: No adenopathy by size criteria. Bones: No aggressive osseous abnormality. Other: No significant ventral or inguinal hernia. IMPRESSION: 1. No urinary stones or hydronephrosis. 2. A 2.1 cm exophytic cyst in the right kidney. Reviewed by: Belen Ewing MD on 09/04/2022 10:17 AM PDT Approved by: Belen Ewing MD on 09/04/2022 10:17 AM PDT Station ID: [id number]
[2022-09-04] MEDS ORDERED: ACETAMINOPHEN 325 MG TABLET PO STA (11:32)
== END 2022-09-04 11:48 | disposition home or self-care (01) ==
LOC: ED 08:05
DX: R10.9 Unspecified abdominal pain (principal); E11.65 Type 2 diabetes mellitus with hyperglycemia; Z79.4 Long term (current) use of insulin
CPT/HCPCS: 36415; 74176; 80053; 81003; 83690; 85025; 99284; A9270; 81001; 87086

== ENCOUNTER 2022-10-23 17:00 | Outpatient (CLI) | payer OTHER ==
[2022-10-23 21:24] LABS: BASOPHILS % (AUTO) 0.5 %; EOSINOPHILS # (AUTO) 0.1 10^3/uL (0.0-0.7); EOSINOPHILS % (AUTO) 1.8 %; HCT - HEMATOCRIT 43.6 % (37.0-47.0); HGB - HEMOGLOBIN 14.3 g/dL (12.0-16.0); LYMPHOCYTES # (AUTO) 0.9 10^3/uL (1.5-3.5); LYMPHOCYTES % (AUTO) 15.6 %; MEAN CORPUSCULAR HEMOGLOBIN 27.9 pg (27.0-31.0); MEAN CORPUSCULAR HGB CONC 32.8 g/dL (32.0-36.0); MEAN PLATELET VOLUME 11.8 fL (7.9-10.8); MONOCYTES # (AUTO) 0.5 10^3/uL (0.0-1.0); MONOCYTES % (AUTO) 8.9 %; NEUTROPHILS # (AUTO) 4.1 10^3/uL (1.5-6.6); PLT - PLATELET COUNT 192 10^3/uL (130-450); RED BLOOD COUNT 5.13 10^6/uL (4.20-5.40); RED CELL DISTRIBUTION WIDTH 12.8 % (12.0-15.0); WHITE BLOOD COUNT 5.6 x10^3/uL (4.8-10.8)
[2022-10-23 21:54] LABS: THYROID STIMULATING HORMONE 1.14 uIU/mL (0.34-5.60)
[2022-10-23 21:57] LABS: ALBUMIN 3.8 g/dL (3.2-5.5); ALBUMIN/GLOBULIN RATIO 1.4 (1.0-2.2); BILIRUBIN,TOTAL 0.6 mg/dL (0.2-1.0); CALCIUM 9.3 mg/dL (8.5-10.3); CREATININE 0.6 mg/dL (0.4-1.0); POTASSIUM 4.1 mmol/L (3.5-5.0); TOTAL PROTEIN 6.6 g/dL (6.7-8.2)
[2022-10-24 04:32] LABS: ESTIMATED AVERAGE GLUCOSE 315 mg/dL (70-100); HEMOGLOBIN A1c% 12.6 % (4.27-6.07)
== END 2022-10-23 17:15 | disposition home or self-care (01) ==
LOC: LAB.N 17:00
PROVIDERS: ATTEND Registered Nurse
DX: I10 Essential (primary) hypertension (principal); R63.2 Polyphagia; R63.4 Abnormal weight loss
CPT/HCPCS: 36415; 80053; 83036; 83690; 84443; 85025

== ENCOUNTER 2022-10-23 23:59 | Outpatient (CLI) | payer OTHER | END 2022-10-24 | disposition critical access hospital (66) | LOC: EMS 23:59 | DX: E11.65 Type 2 diabetes mellitus with hyperglycemia (principal); Z79.4 Long term (current) use of insulin | CPT/HCPCS: A0425; A0427 ==

== ENCOUNTER 2022-10-24 00:20 | Emergency (ER) | payer OTHER ==
[2022-10-24] MEDS ORDERED: INSULIN REGULAR HUMAN 300 UNIT/3 ML VIAL IVP STA (00:24)
[2022-10-24] MEDS ORDERED: SODIUM CHLORIDE 0.9% 1,000 ML IV STA (00:24)
--- NOTE | 2022-10-24 00:27 | ED Physician Documentation ---
History of Present Illness - Stated complaint Stated Complaint: WEAKNESS - History obtained from History obtained from: Patient, EMS - Additonal information Additional information: 62-year-old woman presents from [facility] for hyperglycemia and feelings of weakness. Patient has history of CVA and type 2 diabetes. She takes NovoLog and Lantus and has had trouble controlling her blood sugar. No other complaints at this time. PD PAST MEDICAL HISTORY - Past Medical History Cardiovascular: High cholesterol Respiratory: None Neuro: None Endocrine/Autoimmune: Type 2 diabetes GI: GERD DIPPER AND BAKER: None : None HEENT: None Psych: Bipolar disorder Musculoskeletal: None Derm: None - Past Surgical History Past Surgical History: Yes /DIPPER AND BAKER: Tubal ligation - Present Medications Home Medications: Ambulatory Orders Medication Instructions Recorded Confirmed Aspirin [Aspirin EC] 81 mg PO DAILY 09/13/14 09/13/14 Atorvastatin [Lipitor] 20 mg PO DAILY 09/13/14 09/13/14 Eszopiclone [Lunesta] 2 mg PO DAILY PRN 09/13/14 09/13/14 Insulin Aspart (Vial) [NovoLOG] 60 units SUBQ AC 09/13/14 09/13/14 Insulin Glargine,Hum.rec.anlog 80 units SUBQ BID 09/13/14 09/13/14 [Lantus] Omeprazole [PriLOSEC] 20 mg PO DAILY 09/13/14 09/13/14 Oxybutynin [Ditropan] 5 mg PO DAILY 09/13/14 09/13/14 Blood Sugar Diagnostic [Glucometer 1 each BID #60 strip 09/04/19 Strips] Blood-Glucose Meter [Glucometer] 1 each BID #1 each 09/04/19 Naproxen Sodium [Anaprox Ds] 550 mg PO BID #20 tablet 04/03/20 Ibuprofen [Motrin] 800 mg PO Q8H PRN #30 tablet 04/18/21 methocarbamoL [Robaxin] 500 mg PO Q6H PRN #20 tablet 04/18/21 Oxycodone HCl/Acetaminophen 1 - 2 each PO Q6H PRN #14 tablet 08/10/22 [Percocet 5-325 mg Tablet] - Allergies Allergies/Adverse Reactions: Allergies Allergy/AdvReac Type Severity Reaction Status Date / Time lisinopril AdvReac Respiratory Verified 10/24/22 00:40 meperidine [From Demerol] AdvReac Dizziness Verified 10/24/22 00:40 - Social History Does the pt smoke?: No Smoking Status: Never smoker Does the pt drink ETOH?: No Does the pt have substance abuse?: No - Immunizations Immunizations are current?: Yes - POLST Patient has POLST: No PD ED PE NORMAL - Vitals Vital signs reviewed: Yes - General General: Alert and oriented X 3, No acute distress, Well developed/nourished - HEENT HEENT: Atraumatic, PERRL, EOMI - Neck Neck: Supple, no meningeal sign - Cardiac Cardiac: RRR - Respiratory Respiratory: No respiratory distress, Clear bilaterally - Abdomen Abdomen: Non tender, Non distended - Derm Derm: Normal color, Warm and dry - Extremities Extremities: No deformity - Neuro Neuro: Alert and oriented X 3 Results - Vitals Vitals: Vital Signs - 24 hr 10/24/22 00:20 Temperature 37.4 C Heart Rate 85 Respiratory 16 Rate Blood Pressure 149/75 H O2 Saturation 97 Oxygen O2 Source Room air - Labs Labs: Laboratory Tests 10/24/22 10/24/22 10/24/22 00:30 00:34 00:48 WBC 5.1 RBC 4.65 Hgb 13.2 Hct 39.7 MCV 85.4 MCH 28.4 MCHC 33.2 RDW 12.8 Plt Count 169 MPV 10.8 Neut # (Auto) 3.8 Lymph # (Auto) 1.0 L [place] # (Auto) 0.2 Eos # (Auto) 0.1 Baso # (Auto) 0.0 Absolute Nucleated RBC 0.00 Nucleated RBC % 0.0 VBG pH VBG pCO2 VBG pO2 VBG HCO3 VBG Total CO2 VBG O2 Saturation VBG Base Excess Sodium Potassium Chloride Carbon Dioxide Anion Gap BUN Creatinine Estimated GFR (MDRD) Glucose POC Whole Bld Glucose 455 H Calcium Total Bilirubin AST ALT Alkaline Phosphatase Total Protein Albumin Globulin Albumin/Globulin Ratio Lipase Urine Color YELLOW Urine Clarity CLEAR Urine pH 5.5 Ur Specific [place] 1.010 Urine Protein TRACE Urine Glucose (UA) >=1000 H Urine Ketones NEGATIVE Urine Occult Blood NEGATIVE Urine Nitrite NEGATIVE Urine Bilirubin NEGATIVE Urine Urobilinogen 0.2 (NORMAL) Ur Leukocyte Esterase NEGATIVE Ur Microscopic Review NOT INDICATED Urine Culture Comments NOT INDICATED Serum Ketones 10/24/22 10/24/22 10/24/22 00:48 00:48 01:36 WBC RBC Hgb Hct MCV MCH MCHC RDW Plt Count MPV Neut # (Auto) Lymph # (Auto) [place] # (Auto) Eos # (Auto) Baso # (Auto) Absolute Nucleated RBC Nucleated RBC % VBG pH 7.423 H VBG pCO2 38.0 L VBG pO2 117.5 H VBG HCO3 24.3 VBG Total CO2 25.4 VBG O2 Saturation 98.2 H VBG Base Excess 0.1 Sodium 133 L Potassium 3.6 Chloride 103 Carbon Dioxide 25 Anion Gap 5.0 L BUN 21 H Creatinine 1.1 Estimated GFR (MDRD) 50 L Glucose 442 H POC Whole Bld Glucose 223 H Calcium 8.5 Total Bilirubin 0.3 AST 9 L ALT 11 Alkaline Phosphatase 106 Total Protein 5.7 L Albumin 3.4 Globulin 2.3 Albumin/Globulin Ratio 1.5 Lipase 103 H Urine Color Urine Clarity Urine pH Ur Specific [place] Urine Protein Urine Glucose (UA) Urine Ketones Urine Occult Blood Urine Nitrite Urine Bilirubin Urine Urobilinogen Ur Leukocyte Esterase Ur Microscopic Review Urine Culture Comments Serum Ketones NEGATIVE PD Medical Decision Making - ED course ED course: 62-year-old woman presents with generalized weakness and hyperglycemia from home. Plan to evaluate CBC, abdominal panel, ketones, venous blood gas and provide IVF and 10u iv insulin then reevaluate. Labwork unremarkable, patient well appearing and demanding sandwich. plan to dc home and f/u with pcp. return precautions given. Departure - Departure Disposition: 01 Home, Self Care Clinical Impression: Weakness, Hyperglycemia Condition: Stable Instructions: Hyperglycemia Comments: You were seen in the emergency department for high blood sugar. Your labs looked okay otherwise. Please follow-up with a primary care provider to start your insulin regimen again. Return to the emergency department if you have new or worsening symptoms or other concerns.
[2022-10-24 00:44] LABS: BILIRUBIN,URINE NEGATIVE (NEGATIVE); GLUCOSE, URINE (UA) >=1000 mg/dL (NEGATIVE); KETONES,URINE (UA) NEGATIVE (NEGATIVE); LEUKOCYTE ESTERASE, URINE NEGATIVE (NEGATIVE); NITRITE,URINE NEGATIVE (NEGATIVE); OCCULT BLOOD,URINE NEGATIVE (NEGATIVE); PH,URINE 5.5 PH (5.0-7.5); PROTEIN,URINE TRACE mg/dL (NEGATIVE); UROBILINOGEN,URINE 0.2 (NORMAL) E.U./dL (NORMAL)
[2022-10-24 00:55] LABS: CLARITY,URINE CLEAR (CLEAR)
[2022-10-24 00:57] LABS: BASOPHILS % (AUTO) 0.6 %; EOSINOPHILS # (AUTO) 0.1 10^3/uL (0.0-0.7); EOSINOPHILS % (AUTO) 1.4 %; HCT - HEMATOCRIT 39.7 % (37.0-47.0); HGB - HEMOGLOBIN 13.2 g/dL (12.0-16.0); LYMPHOCYTES % (AUTO) 19.2 %; MEAN CORPUSCULAR HEMOGLOBIN 28.4 pg (27.0-31.0); MEAN CORPUSCULAR HGB CONC 33.2 g/dL (32.0-36.0); MEAN CORPUSCULAR VOLUME 85.4 fL (81.0-99.0); MEAN PLATELET VOLUME 10.8 fL (7.9-10.8); MONOCYTES # (AUTO) 0.2 10^3/uL (0.0-1.0); MONOCYTES % (AUTO) 4.3 %; NEUTROPHILS # (AUTO) 3.8 10^3/uL (1.5-6.6); NEUTROPHILS % (AUTO) 74.3 %; PLT - PLATELET COUNT 169 10^3/uL (130-450); RED BLOOD COUNT 4.65 10^6/uL (4.20-5.40); RED CELL DISTRIBUTION WIDTH 12.8 % (12.0-15.0); WHITE BLOOD COUNT 5.1 x10^3/uL (4.8-10.8)
[2022-10-24 01:04] LABS: KETONES, SERUM (ACETEST) NEGATIVE (NEGATIVE)
[2022-10-24 01:10] LABS: VBG BASE EXCESS 0.1 mmol/L (-2 - +2); VBG HCO3 24.3 mmol/L (23-28); VBG OXYGEN SATURATION 98.2 % (60-80); VBG PH 7.423 (7.31-7.41); VBG PO2 117.5 mmHg (25-47); VBG TOTAL CO2 25.4 mmol/L (24-29)
[2022-10-24 01:12] LABS: ALBUMIN 3.4 g/dL (3.2-5.5); ALBUMIN/GLOBULIN RATIO 1.5 (1.0-2.2); ALKALINE PHOSPHATASE 106 IU/L (42-121); ALT ALANINE AMINOTRANSFERASE 11 IU/L (10-60); AST ASPARTATE AMINOTRANSFERASE 9 IU/L (10-42); BILIRUBIN,TOTAL 0.3 mg/dL (0.2-1.0); BUN - BLOOD UREA NITROGEN 21 mg/dL (6-20); CALCIUM 8.5 mg/dL (8.5-10.3); CARBON DIOXIDE - CO2 25 mmol/L (21-32); CHLORIDE 103 mmol/L (101-111); CREATININE 1.1 mg/dL (0.6-1.3); GFR - MDRD 50 (>89); GLUCOSE 442 mg/dL (74-104); LIPASE 103 U/L (11-82); POTASSIUM 3.6 mmol/L (3.5-4.5); SODIUM 133 mmol/L (135-145); TOTAL PROTEIN 5.7 g/dL (6.4-8.9)
[2022-10-24 02:23] VITALS: BP 140/75; O2SAT 99
== END 2022-10-24 02:10 | disposition home or self-care (01) ==
LOC: EDUNIT# → ED 00:20
DX: R53.1 Weakness (principal); E11.65 Type 2 diabetes mellitus with hyperglycemia; E78.00 Pure hypercholesterolemia, unspecified; Z79.4 Long term (current) use of insulin; Z79.82 Long term (current) use of aspirin; Z79.899 Other long term (current) drug therapy
CPT/HCPCS: 36415; 80053; 81003; 82009; 82803; 83690; 85025; 96360; 99283; J1815; 81001; 87086

== ENCOUNTER 2022-12-14 17:49 | Emergency (ER) | payer OTHER ==
[2022-12-14 19:04] LABS: BASOPHILS % (AUTO) 0.5 %; EOSINOPHILS # (AUTO) 0.1 10^3/uL (0.0-0.7); EOSINOPHILS % (AUTO) 1.5 %; HCT - HEMATOCRIT 45.7 % (37.0-47.0); HGB - HEMOGLOBIN 15.2 g/dL (12.0-16.0); LYMPHOCYTES # (AUTO) 1.1 10^3/uL (1.5-3.5); LYMPHOCYTES % (AUTO) 18.2 %; MEAN CORPUSCULAR HEMOGLOBIN 27.8 pg (27.0-31.0); MEAN CORPUSCULAR HGB CONC 33.3 g/dL (32.0-36.0); MEAN CORPUSCULAR VOLUME 83.5 fL (81.0-99.0); MEAN PLATELET VOLUME 10.5 fL (7.9-10.8); MONOCYTES # (AUTO) 0.5 10^3/uL (0.0-1.0); MONOCYTES % (AUTO) 8.4 %; NEUTROPHILS # (AUTO) 4.2 10^3/uL (1.5-6.6); NEUTROPHILS % (AUTO) 71.2 %; PLT - PLATELET COUNT 182 10^3/uL (130-450); RED BLOOD COUNT 5.47 10^6/uL (4.20-5.40); RED CELL DISTRIBUTION WIDTH 12.9 % (12.0-15.0); WHITE BLOOD COUNT 5.9 x10^3/uL (4.8-10.8)
[2022-12-14 19:26] LABS: ALBUMIN/GLOBULIN RATIO 1.6 (1.0-2.2); BILIRUBIN,TOTAL 0.3 mg/dL (0.2-1.0); CALCIUM 9.6 mg/dL (8.5-10.3); CREATININE 0.6 mg/dL (0.6-1.3); POTASSIUM 3.9 mmol/L (3.5-4.5); TOTAL PROTEIN 6.5 g/dL (6.4-8.9)
[2022-12-14 21:17] LABS: BILIRUBIN,URINE NEGATIVE (NEGATIVE); GLUCOSE, URINE (UA) >=1000 mg/dL (NEGATIVE); KETONES,URINE (UA) NEGATIVE (NEGATIVE); LEUKOCYTE ESTERASE, URINE NEGATIVE (NEGATIVE); NITRITE,URINE NEGATIVE (NEGATIVE); OCCULT BLOOD,URINE NEGATIVE (NEGATIVE); PROTEIN,URINE 30 mg/dL (NEGATIVE); UROBILINOGEN,URINE 0.2 (NORMAL) E.U./dL (NORMAL)
[2022-12-14 21:19] LABS: CLARITY,URINE CLEAR (CLEAR)
[2022-12-14 21:27] LABS: BACTERIA,URINE None Seen /HPF (None Seen); RBC,URINE 0-5 /HPF (0-5); SQUAMOUS EPITHELIAL CELL,UR RARE Squamous (<= Few); WBC,URINE 0-3 /HPF (0-5)
--- NOTE | 2022-12-14 22:37 | ED Physician Documentation ---
History of Present Illness - Stated complaint Stated Complaint: /HIGH BLOOD SUGAR - Chief complaint Chief Complaint: Abd Pain - History obtained from History obtained from: Patient - Additonal information Additional information: patient c/o urinary frequency since this AM. Patient says this is due to high blood sugar although she also says her glucometer is broken and thus has not checked blood sugar today. She knows her doses of insulin but tells me she didnt take todays doses because I forgot (per patient). she also describes inappropriate diet choices (donuts and hamburgers today). Review of Systems Constitutional: reports: Reviewed and negative Cardiac: reports: Reviewed and negative Respiratory: reports: Reviewed and negative GI: reports: Reviewed and negative : reports: Frequency. denies: Dysuria Neurologic: reports: Reviewed and negative Endocrine: reports: Polyuria. denies: Polydypsia PD PAST MEDICAL HISTORY - Past Medical History Cardiovascular: High cholesterol Respiratory: None Neuro: None Endocrine/Autoimmune: Type 2 diabetes GI: GERD WELL SHOOTER: None : None HEENT: None Psych: Bipolar disorder Musculoskeletal: None Derm: None - Past Surgical History Past Surgical History: Yes /WELL SHOOTER: Tubal ligation - Present Medications Home Medications: Ambulatory Orders Medication Instructions Recorded Confirmed Aspirin [Aspirin EC] 81 mg PO DAILY 09/13/14 09/13/14 Atorvastatin [Lipitor] 20 mg PO DAILY 09/13/14 09/13/14 Eszopiclone [Lunesta] 2 mg PO DAILY PRN 09/13/14 09/13/14 Insulin Aspart (Vial) [NovoLOG] 60 units SUBQ AC 09/13/14 09/13/14 Insulin Glargine,Hum.rec.anlog 80 units SUBQ BID 09/13/14 09/13/14 [Lantus] Omeprazole [PriLOSEC] 20 mg PO DAILY 09/13/14 09/13/14 Oxybutynin [Ditropan] 5 mg PO DAILY 09/13/14 09/13/14 Blood Sugar Diagnostic [Glucometer 1 each MC BID #60 strip 09/04/19 Strips] Blood-Glucose Meter [Glucometer] 1 each BID #1 each 09/04/19 Naproxen Sodium [Anaprox Ds] 550 mg PO BID #20 tablet 04/03/20 Ibuprofen [Motrin] 800 mg PO Q8H PRN #30 tablet 04/18/21 methocarbamoL [Robaxin] 500 mg PO Q6H PRN #20 tablet 04/18/21 Oxycodone HCl/Acetaminophen 1 - 2 each PO Q6H PRN #14 tablet 08/10/22 [Percocet 5-325 mg Tablet] - Allergies Allergies/Adverse Reactions: Allergies Allergy/AdvReac Type Severity Reaction Status Date / Time lisinopril AdvReac Respiratory Verified 10/24/22 00:40 meperidine [From Demerol] AdvReac Dizziness Verified 10/24/22 00:40 - Social History Does the pt smoke?: No Smoking Status: Never smoker Does the pt drink ETOH?: No Does the pt have substance abuse?: No - Immunizations Immunizations are current?: Yes - POLST Patient has POLST: No PD ED PE NORMAL - Vitals Vital signs reviewed: Yes - General General: Alert and oriented X 3, No acute distress, Well developed/nourished - HEENT HEENT: Other (tacky/pasty mucous membranes) - Cardiac Cardiac: RRR, No murmur - Respiratory Respiratory: No respiratory distress, Clear bilaterally - Abdomen Abdomen: Soft, Non tender - Derm Derm: Normal color, Warm and dry Results - Vitals Vitals: Oxygen O2 Source Room air - Labs Labs: Laboratory Tests 12/14/22 12/14/22 12/14/22 06:59 06:59 18:02 WBC 5.9 RBC 5.47 H Hgb 15.2 Hct 45.7 MCV 83.5 MCH 27.8 MCHC 33.3 RDW 12.9 Plt Count 182 MPV 10.5 Neut # (Auto) 4.2 Lymph # (Auto) 1.1 L [place] # (Auto) 0.5 Eos # (Auto) 0.1 Baso # (Auto) 0.0 Absolute Nucleated RBC 0.00 Nucleated RBC % 0.0 Sodium 134 L Potassium 3.9 Chloride 103 Carbon Dioxide 24 Anion Gap 7.0 BUN 26 H Creatinine 0.6 Estimated GFR (MDRD) 101 Glucose 407 H POC Whole Bld Glucose 470 H Calcium 9.6 Total Bilirubin 0.3 AST 17 ALT 27 Alkaline Phosphatase 110 Total Protein 6.5 Albumin 4.0 Globulin 2.5 Albumin/Globulin Ratio 1.6 Lipase 68 Urine Color Urine Clarity Urine pH Ur Specific [place] Urine Protein Urine Glucose (UA) Urine Ketones Urine Occult Blood Urine Nitrite Urine Bilirubin Urine Urobilinogen Ur Leukocyte Esterase Urine RBC Urine WBC Ur Squamous Epith Cells Urine Bacteria Ur Microscopic Review Urine Culture Comments 12/14/22 12/15/22 21:00 00:11 WBC RBC Hgb Hct MCV MCH MCHC RDW Plt Count MPV Neut # (Auto) Lymph # (Auto) [place] # (Auto) Eos # (Auto) Baso # (Auto) Absolute Nucleated RBC Nucleated RBC % Sodium Potassium Chloride Carbon Dioxide Anion Gap BUN Creatinine Estimated GFR (MDRD) Glucose POC Whole Bld Glucose 123 H Calcium Total Bilirubin AST ALT Alkaline Phosphatase Total Protein Albumin Globulin Albumin/Globulin Ratio Lipase Urine Color YELLOW Urine Clarity CLEAR Urine pH 6.0 Ur Specific [place] 1.010 Urine Protein 30 H Urine Glucose (UA) >=1000 H Urine Ketones NEGATIVE Urine Occult Blood NEGATIVE Urine Nitrite NEGATIVE Urine Bilirubin NEGATIVE Urine Urobilinogen 0.2 (NORMAL) Ur Leukocyte Esterase NEGATIVE Urine RBC 0-5 Urine WBC 0-3 Ur Squamous Epith Cells RARE Squamous Urine Bacteria None Seen Ur Microscopic Review INDICATED Urine Culture Comments NOT INDICATED PD Medical Decision Making - ED course Complexity details: reviewed results, re-evaluated patient, considered differential, d/w patient ED course: UA negative except glucosuria (>1000) and mild proteinuria (30); no ketonuria nor findings to suggest infection/UTI. FSBS 470, with 407 on ER abdominal panel. Elevated BUN (26) with normal creatinine (0.6) c/w dehydration (which is likely due to fluid losses through polyuria secondary to hyperglycemia). Normal CBC. She is given 1 liter NS bolus and 8 units regular insulin IV. FSBS prior to d/c 123 and patient reports feeling well. Results reviewed with patient. Return precautions discussed. Instructed to follow up with PCP, next available appointment. Departure - Departure Disposition: Home, Self Care Clinical Impression: Hyperglycemia Condition: Good Instructions: ED Hyperglycemia Diabetic, ED Diet Diabetic Comments: Your blood sugar was quite elevated tonight, but is much improved after intravenous fluids as well as 8 units of regular insulin that were given to the IV. There was no evidence of a urinary tract infection on the urinalysis, and the rest of your blood work was unremarkable. Urinary frequency can be a result of high blood sugar and I suspect that is why you were having this symptom. It is very important that you follow your medication regimen, including your diabetic medications, as prescribed. Additionally, it is as important to follow an appropriate diet for diabetes. Forms: PCP List Discharge Date/Time: 12/15/22 01:07
[2022-12-14] MEDS ORDERED: INSULIN REGULAR HUMAN 300 UNIT/3 ML VIAL IVP STA (22:40)
[2022-12-14] MEDS ORDERED: SODIUM CHLORIDE 0.9% 1,000 ML IV STA (22:40)
[2022-12-15 01:19] VITALS: BP 146/103; O2SAT 99
== END 2022-12-15 01:07 | disposition home or self-care (01) ==
LOC: ED 17:49
DX: E11.65 Type 2 diabetes mellitus with hyperglycemia (principal); Z79.4 Long term (current) use of insulin
CPT/HCPCS: 36415; 80053; 81001; 83690; 85025; 96360; 99283; J1815; 81003; 87086

== ENCOUNTER 2022-12-17 00:25 | Emergency (ER) | payer OTHER ==
--- OUTSIDE RECORDS SUMMARY | 2022-12-17 00:38 | EXTERNAL MEDICAL SUMMARY RPT | Continuity of Care Document ---
Author Name Unknown Address [address] [place] [address] Phone Organization [facility] Address [address] [place] [address] Phone Care Team Providers Care Laundry Aid Name Role Phone Zay Watson Unavailable Unavailable Medications date description facility 2022-11-16 00:00 Norene Carbonate [facility] 2022-11-16 00:00 Ziprasidone [facility] 2022-11-16 00:00 [facility] Social History date description facility 2022-11-16 00:00 Ex-smoker (finding) [facility]
[2022-12-17 01:41] LABS: BASOPHILS % (AUTO) 0.4 %; EOSINOPHILS # (AUTO) 0.1 10^3/uL (0.0-0.7); EOSINOPHILS % (AUTO) 1.2 %; HCT - HEMATOCRIT 40.9 % (37.0-47.0); HGB - HEMOGLOBIN 13.7 g/dL (12.0-16.0); LYMPHOCYTES # (AUTO) 0.8 10^3/uL (1.5-3.5); LYMPHOCYTES % (AUTO) 11.9 %; MEAN CORPUSCULAR HEMOGLOBIN 28.2 pg (27.0-31.0); MEAN CORPUSCULAR HGB CONC 33.5 g/dL (32.0-36.0); MEAN CORPUSCULAR VOLUME 84.3 fL (81.0-99.0); MEAN PLATELET VOLUME 10.3 fL (7.9-10.8); MONOCYTES # (AUTO) 0.6 10^3/uL (0.0-1.0); MONOCYTES % (AUTO) 8.6 %; NEUTROPHILS # (AUTO) 5.4 10^3/uL (1.5-6.6); NEUTROPHILS % (AUTO) 77.8 %; PLT - PLATELET COUNT 176 10^3/uL (130-450); RED BLOOD COUNT 4.85 10^6/uL (4.20-5.40); RED CELL DISTRIBUTION WIDTH 13.3 % (12.0-15.0)
[2022-12-17 01:56] LABS: ALBUMIN 3.5 g/dL (3.2-5.5); ALBUMIN/GLOBULIN RATIO 1.7 (1.0-2.2); BILIRUBIN,TOTAL 0.3 mg/dL (0.2-1.0); CREATININE 0.5 mg/dL (0.6-1.3); POTASSIUM 3.7 mmol/L (3.5-4.5); TOTAL PROTEIN 5.6 g/dL (6.4-8.9)
[2022-12-17] MEDS ORDERED: INSULIN REGULAR HUMAN 300 UNIT/3 ML VIAL IVP STA (02:21)
--- NOTE | 2022-12-17 03:00 | ED Physician Documentation ---
History of Present Illness - Stated complaint Stated Complaint: - Chief complaint Chief Complaint: UTI - History obtained from History obtained from: Patient - Additonal information Additional information: 62-year-old woman with past medical history of diabetes presents with increased urinary frequency for the past couple of days. Patient was just seen here yesterday and had a normal urine test. Denies fever, abdominal pain, diarrhea, nausea or vomiting. She has been eating a terrible diet and is diabetic. 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 : None HEENT: None Psych: Bipolar disorder Musculoskeletal: None Derm: None - Past Surgical History Past Surgical History: Yes /TITLE ONE READING TEACHER: Tubal ligation - Present Medications Home Medications: Ambulatory Orders Medication Instructions Recorded Confirmed Aspirin [Aspirin EC] 81 mg PO DAILY 09/13/14 09/13/14 Atorvastatin [Lipitor] 20 mg PO DAILY 09/13/14 09/13/14 Eszopiclone [Lunesta] 2 mg PO DAILY PRN 09/13/14 09/13/14 Insulin Aspart (Vial) [NovoLOG] 60 units SUBQ AC 09/13/14 09/13/14 Insulin Glargine,Hum.rec.anlog 80 units SUBQ BID 09/13/14 09/13/14 [Lantus] Omeprazole [PriLOSEC] 20 mg PO DAILY 09/13/14 09/13/14 Oxybutynin [Ditropan] 5 mg PO DAILY 09/13/14 09/13/14 Blood Sugar Diagnostic [Glucometer 1 each BID #60 strip 09/04/19 Strips] Blood-Glucose Meter [Glucometer] 1 each BID #1 each 09/04/19 Naproxen Sodium [Anaprox Ds] 550 mg PO BID #20 tablet 04/03/20 Ibuprofen [Motrin] 800 mg PO Q8H PRN #30 tablet 04/18/21 methocarbamoL [Robaxin] 500 mg PO Q6H PRN #20 tablet 04/18/21 Oxycodone HCl/Acetaminophen 1 - 2 each PO Q6H PRN #14 tablet 08/10/22 [Percocet 5-325 mg Tablet] - Allergies Allergies/Adverse Reactions: Allergies Allergy/AdvReac Type Severity Reaction Status Date / Time lisinopril AdvReac Respiratory Verified 12/17/22 00:57 meperidine [From Demerol] AdvReac Dizziness Verified 12/17/22 00:57 - Social History Does the pt smoke?: No Smoking Status: Never smoker Does the pt drink ETOH?: No Does the pt have substance abuse?: No - Immunizations Immunizations are current?: Yes - POLST Patient has POLST: No PD ED PE NORMAL - Vitals Vital signs reviewed: Yes - General General: Alert and oriented X 3, No acute distress, Well developed/nourished - HEENT HEENT: Atraumatic, PERRL, EOMI - Neck Neck: Supple, no meningeal sign - Cardiac Cardiac: RRR - Respiratory Respiratory: No respiratory distress, Clear bilaterally - Abdomen Abdomen: Non tender, Non distended - Back Back: No CVA TTP - Derm Derm: Normal color, Warm and dry Results - Vitals Vitals: Vital Signs - 24 hr 12/17/22 12/17/22 00:55 02:24 Temperature 36.4 C L Heart Rate 77 86 Respiratory 18 16 Rate Blood Pressure 149/76 H 150/68 H O2 Saturation 98 98 Oxygen O2 Source Room air - Labs Labs: Laboratory Tests 12/17/22 12/17/22 12/17/22 01:06 01:30 01:30 WBC 7.0 RBC 4.85 Hgb 13.7 Hct 40.9 MCV 84.3 MCH 28.2 MCHC 33.5 RDW 13.3 Plt Count 176 MPV 10.3 Neut # (Auto) 5.4 Lymph # (Auto) 0.[address] [place] # (Auto) 0.6 Eos # (Auto) 0.1 Baso # (Auto) 0.0 Absolute Nucleated RBC 0.00 Nucleated RBC % 0.0 Sodium 133 L Potassium 3.7 Chloride 102 Carbon Dioxide 22 Anion Gap 9.0 BUN 24 H Creatinine 0.5 L Estimated GFR (MDRD) 124 Glucose 418 H POC Whole Bld Glucose 356 H Calcium 9.0 Total Bilirubin 0.3 AST 18 ALT 25 Alkaline Phosphatase 106 Total Protein 5.6 L Albumin 3.5 Globulin 2.1 Albumin/Globulin Ratio 1.7 Lipase 59 PD Medical Decision Making - ED course ED course: 62-year-old woman with history of diabetes that is poorly controlled presents with increased urinary frequency and concerned that she has a UTI. I advised her that she had a urinalysis yesterday that did not show UTI and this is likely due to her high blood sugar. Education given about dietary management and need for compliance with medications. Plan is to follow-up outpatient with her primary care provider. Return precautions given. Departure - Departure Clinical Impression: Increased urinary frequency, Hyperglycemia Condition: Stable Instructions: Hyperglycemia Comments: You were seen in the emergency department for increased urge to pee. Your urine test yesterday was normal. You do not have a uti. You do have very high blood sugar which can cause the urge to pee more. Please follow-up with your primary care provider and return to the emergency department if you have any new or worsening symptoms or other concerns.
[2022-12-17] MEDS ORDERED: IBUPROFEN 600 MG TABLET PO STA (03:05)
[2022-12-17 04:10] VITALS: BP 132/73; O2SAT 99
== END 2022-12-17 04:10 | disposition home or self-care (01) ==
LOC: ED 00:25
DX: E11.65 Type 2 diabetes mellitus with hyperglycemia (principal); Z79.4 Long term (current) use of insulin
CPT/HCPCS: 36415; 80053; 83690; 85025; 99282; 99283; A9270; J1815

== ENCOUNTER 2023-01-13 18:19 | Inpatient (IN) | payer OTHER ==
[2023-01-13 18:53] LABS: BILIRUBIN,URINE NEGATIVE (NEGATIVE); GLUCOSE, URINE (UA) >=1000 mg/dL (NEGATIVE); KETONES,URINE (UA) NEGATIVE (NEGATIVE); LEUKOCYTE ESTERASE, URINE NEGATIVE (NEGATIVE); NITRITE,URINE NEGATIVE (NEGATIVE); OCCULT BLOOD,URINE NEGATIVE (NEGATIVE); PROTEIN,URINE 30 mg/dL (NEGATIVE); UROBILINOGEN,URINE 0.2 (NORMAL) E.U./dL (NORMAL)
[2023-01-13 18:54] LABS: CLARITY,URINE CLEAR (CLEAR)
[2023-01-13 19:08] LABS: BACTERIA,URINE None Seen /HPF (None Seen); RBC,URINE 0-5 /HPF (0-5); SQUAMOUS EPITHELIAL CELL,UR RARE Squamous (<= Few); WBC,URINE 0-3 /HPF (0-5)
[2023-01-13 19:57] LABS: BASOPHILS % (AUTO) 0.4 %; EOSINOPHILS # (AUTO) 0.1 10^3/uL (0.0-0.7); EOSINOPHILS % (AUTO) 1.1 %; HCT - HEMATOCRIT 43.3 % (37.0-47.0); HGB - HEMOGLOBIN 14.4 g/dL (12.0-16.0); LYMPHOCYTES # (AUTO) 1.2 10^3/uL (1.5-3.5); LYMPHOCYTES % (AUTO) 14.5 %; MEAN CORPUSCULAR HEMOGLOBIN 27.2 pg (27.0-31.0); MEAN CORPUSCULAR HGB CONC 33.3 g/dL (32.0-36.0); MEAN CORPUSCULAR VOLUME 81.7 fL (81.0-99.0); MEAN PLATELET VOLUME 10.1 fL (7.9-10.8); MONOCYTES # (AUTO) 0.6 10^3/uL (0.0-1.0); MONOCYTES % (AUTO) 7.4 %; NEUTROPHILS # (AUTO) 6.3 10^3/uL (1.5-6.6); NEUTROPHILS % (AUTO) 76.2 %; PLT - PLATELET COUNT 264 10^3/uL (130-450); RED CELL DISTRIBUTION WIDTH 13.2 % (12.0-15.0); WHITE BLOOD COUNT 8.3 x10^3/uL (4.8-10.8)
[2023-01-13 20:12] LABS: ALBUMIN 3.9 g/dL (3.2-5.5); ALBUMIN/GLOBULIN RATIO 1.6 (1.0-2.2); BILIRUBIN,TOTAL 0.3 mg/dL (0.2-1.0); TOTAL PROTEIN 6.4 g/dL (6.4-8.9)
[2023-01-13] MEDS ORDERED: INSULIN REGULAR HUMAN 300 UNIT/3 ML VIAL SUBQ STA (22:03)
[2023-01-13] MEDS ORDERED: SODIUM CHLORIDE 0.9% 1,000 ML IV STA (22:39)
[2023-01-14] MEDS ORDERED: MORPHINE 2 MG/ML CARPUJECT IVP STA (00:08)
[2023-01-14] MEDS ORDERED: iohexoL-300 100 ML VIAL IVP ONE (01:23)
--- NOTE | 2023-01-14 01:27 | CT Report ---
PROCEDURE: ABDOMEN/PELVIS W INDICATIONS: RLQ pain CONTRAST: Omni 300 90ml TECHNIQUE: After the administration of intravenous contrast, 5 mm thick sections acquired from the diaphragms to the symphysis. 5 mm thick coronal and sagittal reformats were acquired. For radiation dose reducti on, the following was used: automated exposure control, adjustment of mA and/or kV according to cristine ent size. COMPARISON: None FINDINGS: Image quality: Excellent. Lung bases and heart: Unremarkable. Liver: No solid mass. Gallbladder and biliary tree: No radiopaque stones or wall thickening. No biliary dilation. Spleen: No splenomegaly. Pancreas: No pancreatic ductal dilation. Adrenals: No adrenal nodule. Kidneys and ureters: No hydronephrosis. No renal cystic lesion which requires follow up. No solid mas s. Bowel and peritoneum: No bowel distension. No pathologic free fluid. Moderate to large colonic stool, particularly of the ascending colon and transverse colon. Normal appendix. Lymph nodes: No central or retroperitoneal adenopathy. Vessels: No infrarenal aortic aneurysm. PELVIS Reproductive organs: Unremarkable. Bladder: No abnormal wall thickening, accounting for underdistension. Trace gas within the urinary bl adder. Pelvic lymph nodes: No pelvic adenopathy by size criteria. Bones: No aggressive osseous abnormality. Other: No significant ventral or inguinal hernia. IMPRESSION: Moderate to large colonic stool load, particularly in the ascending colon and transverse colon. Normal appendix. Trace gas within the urinary bladder, either iatrogenic or indicating infection. Correlate with recen t instrumentation history. Reviewed by: Zay Gonzalez on 01/14/2023 1:26 AM [facility] Approved by: Zay Gonzalez on 01/14/2023 1:26 AM [facility] Station ID: [id number]
--- NOTE | 2023-01-14 01:47 | ED Physician Documentation ---
PD HPI ABD PAIN - Stated complaint Stated Complaint: RLQ PX - Chief complaint Chief Complaint: Abd Pain - History obtained from History obtained from: Patient - Additional information Additional information: 62yF with pmh dm, hld, bipolar disorder, with frequent history of ED visits for suprapubic pain and urinary sx, p/w suprapubic and RLQ pain sudden onset 1600 today. +urinary frequency. denies back pain, upper abdominal pain, n/v/d fever or chills. recent diagnosis of colitis. 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 : None HEENT: None Psych: Bipolar disorder Musculoskeletal: None Derm: None - Past Surgical History Past Surgical History: Yes /STARCH AND PROSIZE MIXER: Tubal ligation - Present Medications Home Medications: Ambulatory Orders Medication Instructions Recorded Confirmed Aspirin [Aspirin EC] 81 mg PO DAILY 09/13/14 09/13/14 Atorvastatin [Lipitor] 20 mg PO DAILY 09/13/14 09/13/14 Eszopiclone [Lunesta] 2 mg PO DAILY PRN 09/13/14 09/13/14 Insulin Aspart (Vial) [NovoLOG] 60 units SUBQ AC 09/13/14 09/13/14 Insulin Glargine,Hum.rec.anlog 80 units SUBQ BID 09/13/14 09/13/14 [Lantus] Omeprazole [PriLOSEC] 20 mg PO DAILY 09/13/14 09/13/14 Oxybutynin [Ditropan] 5 mg PO DAILY 09/13/14 09/13/14 Blood Sugar Diagnostic [Glucometer 1 each BID #60 strip 09/04/19 Strips] Blood-Glucose Meter [Glucometer] 1 each BID #1 each 09/04/19 Naproxen Sodium [Anaprox Ds] 550 mg PO BID #20 tablet 04/03/20 Ibuprofen [Motrin] 800 mg PO Q8H PRN #30 tablet 04/18/21 methocarbamoL [Robaxin] 500 mg PO Q6H PRN #20 tablet 04/18/21 Oxycodone HCl/Acetaminophen 1 - 2 each PO Q6H PRN #14 tablet 08/10/22 [Percocet 5-325 mg Tablet] Ibuprofen [Motrin] 600 mg PO Q6H PRN #3 tab 12/17/22 - Allergies Allergies/Adverse Reactions: Allergies Allergy/AdvReac Type Severity Reaction Status Date / Time lisinopril AdvReac Respiratory Verified 01/13/23 18:35 meperidine [From Demerol] AdvReac Dizziness Verified 01/13/23 18:35 - Social History Does the pt smoke?: No Smoking Status: Never smoker Does the pt drink ETOH?: No Does the pt have substance abuse?: No - Immunizations Immunizations are current?: Yes - POLST Patient has POLST: No PD ED PE NORMAL - Vitals Vital signs reviewed: Yes - General General: Alert and oriented X 3, No acute distress, Well developed/nourished - HEENT HEENT: Atraumatic, PERRL, EOMI - Neck Neck: Supple, no meningeal sign - Cardiac Cardiac: RRR - Respiratory Respiratory: No respiratory distress, Clear bilaterally - Abdomen Abdomen: Other (RUQ/RLQ ttp) - Derm Derm: Normal color, Warm and dry - Neuro Neuro: Alert and oriented X 3 - Psych Psych: Other (odd affect) Results - Vitals Vitals: Vital Signs - 24 hr 01/13/23 18:35 Temperature 36.5 C Heart Rate 78 Respiratory 20 Rate Blood Pressure 138/66 H O2 Saturation 99 Oxygen O2 Source Room air - Labs Labs: Laboratory Tests 01/13/23 01/13/23 01/13/23 18:38 19:48 19:48 WBC 8.3 RBC 5.30 Hgb 14.4 Hct 43.3 MCV 81.7 MCH 27.2 MCHC 33.3 RDW 13.2 Plt Count 264 MPV 10.1 Neut # (Auto) 6.3 Lymph # (Auto) 1.2 L [place] # (Auto) 0.6 Eos # (Auto) 0.1 Baso # (Auto) 0.0 Absolute Nucleated RBC 0.00 Nucleated RBC % 0.0 Sodium 132 L Potassium 4.0 Chloride 101 Carbon Dioxide 22 Anion Gap 9.0 BUN 25 H Creatinine 1.0 Estimated GFR (MDRD) 56 L Glucose 458 H POC Whole Bld Glucose Calcium 9.0 Total Bilirubin 0.3 AST 13 ALT 23 Alkaline Phosphatase 112 Total Protein 6.4 Albumin 3.9 Globulin 2.5 Albumin/Globulin Ratio 1.6 Lipase 495 H Urine Color YELLOW Urine Clarity CLEAR Urine pH 6.0 Ur Specific [place] 1.010 Urine Protein 30 H Urine Glucose (UA) >=1000 H Urine Ketones NEGATIVE Urine Occult Blood NEGATIVE Urine Nitrite NEGATIVE Urine Bilirubin NEGATIVE Urine Urobilinogen 0.2 (NORMAL) Ur Leukocyte Esterase NEGATIVE Urine RBC 0-5 Urine WBC 0-3 Ur Squamous Epith Cells RARE Squamous Urine Bacteria None Seen Ur Microscopic Review INDICATED Urine Culture Comments NOT INDICATED 01/14/23 01:51 WBC RBC Hgb Hct MCV MCH MCHC RDW Plt Count MPV Neut # (Auto) Lymph # (Auto) [place] # (Auto) Eos # (Auto) Baso # (Auto) Absolute Nucleated RBC Nucleated RBC % Sodium Potassium Chloride Carbon Dioxide Anion Gap BUN Creatinine Estimated GFR (MDRD) Glucose POC Whole Bld Glucose 212 H Calcium Total Bilirubin AST ALT Alkaline Phosphatase Total Protein Albumin Globulin Albumin/Globulin Ratio Lipase Urine Color Urine Clarity Urine pH Ur Specific [place] Urine Protein Urine Glucose (UA) Urine Ketones Urine Occult Blood Urine Nitrite Urine Bilirubin Urine Urobilinogen Ur Leukocyte Esterase Urine RBC Urine WBC Ur Squamous Epith Cells Urine Bacteria Ur Microscopic Review Urine Culture Comments PD Medical Decision Making - ED course ED course: 62yF, well known to our ED, presents with suprapubic/RLQ pain migrating diffusely, found to have no acute findings on ct aside from constipation, however she does have elevated lipase > threefold on abdominal panel, concerning for pancreatitis. she also was found to have acute urinary retention and urinary catheter placed. no beds available. plan to endorse to daytime ED MD at 7am shift change pending bed availability. may also plan on ultrasound RUQ at that time, since we do not have ultrasound overnight yet this may be helpful to her workup. Departure - Departure Clinical Impression: Abdominal pain, Pancreatitis Condition: Stable Instructions: Abdominal Pain Comments: You were seen in the emergency department for abdominal pain. Please follow-up with your primary care provider and return to the emergency department if you have any new or worsening symptoms or other concerns. Forms: PCP List
[2023-01-14] MEDS ORDERED: SODIUM CHLORIDE 0.9% 1,000 ML IV STA (01:53)
[2023-01-14] MEDS: HYDROmorphone 0.5 MG/0.5 ML SYRINGE IVP PRN ×4 (02:25→20:28)
[2023-01-14] MEDS: SODIUM CHLORIDE 0.9% 1,000 ML IV SCH ×2 (04:54→12:29)
[2023-01-14 07:50] LABS: ETOH - ETHANOL < 10.0 mg/dL; TRIGLYCERIDES 141 mg/dL (48-352)
[2023-01-14 07:53] LABS: LITHIUM < 0.10 mmol/L
--- NOTE | 2023-01-14 09:30 | Ultrasound Report ---
PROCEDURE: Abdomen Limited INDICATIONS: pancreatitis, abd pain TECHNIQUE: Real-time focused scanning was performed of the abdomen, with image documentation. COMPARISONS: CT abdomen and pelvis dated 01/14/2023. FINDINGS: Liver: Mildly increased echogenicity is consistent with mild diffuse hepatic steatosis. Gallbladder: Unremarkable. Biliary ducts: Intrahepatic bile ducts are non-dilated. Extrahepatic bile duct caliber measures 7.5 mm, but tapers to 3.6 mm at the level of the distal common duct.. Normal is 6-7 mm or less in diame ter, or 10 mm or less post-cholecystectomy. Pancreas: Visualized portions of the pancreas are sonographically normal. Right kidney: Normal in size and echotexture. Right kidney measures 9.9 cm long. No hydronephrosis o r nephrolithiasis. No solid masses. No complex renal cystic lesions which require follow-up. Aorta: Not visualized secondary to overlying bowel gas. IVC: Intrahepatic inferior vena cava is patent. Miscellaneous: No free abdominal fluid. IMPRESSION: 1. Mild diffuse hepatic steatosis. 2. No gallstone disease. 3. Otherwise unremarkable study. Reviewed by: Rivera Muñoz MD on 01/14/2023 9:29 AM PST Approved by: Rivera Muñoz MD on 01/14/2023 9:29 AM PST Station ID: [id number]
--- NOTE | 2023-01-14 11:00 | ED Physician Documentation ---
ED Addendum - Addendum Addendum: 01/14/23 10:58 an ultrasound was ordered, no acute findings. No evidence of choledoch olithiasis or gallstones. Did have a prior ultrasound with sludge. Alcohol level is negative. Triglycerides are normal. Unclear etiology of her pancreatitis but is still requiring IV pain medication. Kept n.p.o., IV fluids given. We will admit for further care. Discussed with the hospitalist, Dr. Cassidy who accepts This document was made in part using voice recognition software. While efforts are made to proofread this document, sound alike and grammatical errors may occur. Departure - Departure Disposition: [facility] DC/Xfer Clinical Impression: Urinary retention Abdominal pain Qualifiers: Abdominal location: unspecified location Qualified Code(s): R10.9 - Unspecified abdominal pain Pancreatitis Qualifiers: Chronicity: acute Pancreatitis type: unspecified pancreatitis type Acute pancreatitis complication: unspecified Qualified Code(s): K85.90 - Acute pancreatitis without necrosis or infection, unspecified Condition: Stable Forms: PCP List
[2023-01-14] MEDS ORDERED: diphenhydrAMINE INJ 50 MG/ML VIAL IVP STA ×2 (11:17→22:52)
[2023-01-14] MEDS ORDERED: DOXEPIN 10 MG CAPSULE PO STA (12:37)
[2023-01-14] MEDS ORDERED: PROCHLORPERAZINE 10 MG/2 ML VIAL IVP PRN (12:45)
[2023-01-14] MEDS ORDERED: ONDANSETRON 4 MG/2 ML VIAL IVP PRN (12:45)
[2023-01-14] MEDS ORDERED: HYDROmorphone 0.5 MG/0.5 ML SYRINGE IVP PRN (12:45)
[2023-01-14] MEDS ORDERED: SODIUM CHLORIDE FLUSH 0.9% 10 ML SYRINGE IVP PRN (12:45)
--- NOTE | 2023-01-14 12:51 | HISTORY & PHYSICAL EXAMINATION ---
Chief Complaint - Chief Complaint Chief Complaint: abd pain History of Present Illness - Admitted From Admitted From:: ED - History Obtained From History obtained from: ED provider and the pt - History of Present Illness HPI Comment/Other: This is a 62-year-old female with history of type 2 diabetes, monitors her glu with a CGM. She developed abdominal pain yesterday with nausea and some vomiting. She presented to the ER today. The patient denies having a fever, or having vomiting or diarrhea. She has not been exposed to sick contacts. Work- up showed she had elevated lipase in 400's and is felt to have pancreatitis. CT imaging showed constipation and no abnormalities of the pancreas were seen. The patient denies being a daily alcohol drinker, she drinks on holidays only she told me. Triglycerides were checked and were normal. The patient was given clear liquids and IV fluids and pain meds. She continues to need narcotics for pain control. The ED provider reached out to me on the Hospitalist service and we discussed this patient. She will be admitted for management of pancreatitis, requiring narcotics for pain control. 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 She drives a car. She quit smoking 50 years ago. She drinks alcohol only on holidays. - Substance History Use: Uses substance without health or social issues: NONE - POLST Patient has POLST: No Meds/Allgy - Home Medications Home Medications: Ambulatory Orders Medication Instructions Recorded Confirmed Aspirin [Aspirin EC] 81 mg PO DAILY 09/13/14 01/14/23 Insulin Aspart (Vial) [NovoLOG] 60 units SUBQ BIDAC 09/13/14 01/14/23 Insulin Glargine,Hum.rec.anlog 40 units SUBQ TID 09/13/14 01/14/23 [Lantus] Blood Sugar Diagnostic [Glucometer 1 each BID #60 strip 09/04/19 01/14/23 Strips] Blood-Glucose Meter [Glucometer] 1 each BID #1 each 09/04/19 01/14/23 Albuterol Sulf [Ventolin Hfa 2 puffs INH Q4HR PRN 01/14/23 01/14/23 Inhaler] Benzonatate [Tessalon] 100 mg PO TID PRN 01/14/23 01/14/23 Diphenoxylate/Atropine [Lomotil] 1 each PO Q8H PRN 01/14/23 01/14/23 Dulaglutide [Trulicity] 3 mg SQ .WEEKLY ON Wednesday01/14/23 01/14/23 Empagliflozin [Jardiance] 10 mg PO DAILY 01/14/23 01/14/23 Eszopiclone [Lunesta] 2 mg PO HS PRN 01/14/23 01/14/23 Fexofenadine [Nishi] 180 mg PO DAILY PRN 01/14/23 01/14/23 Latanoprost 0.005% Ophth Drops 1 drops OPTH HS 01/14/23 01/14/23 [Xalatan Ophth Drops] [place] Carbonate [Lithobid] 300 mg PO HS 01/14/23 01/14/23 Pioglitazone [Actos] 30 mg PO DAILY 01/14/23 01/14/23 ziprasidone HCL [Geodon] 20 mg PO BID 01/14/23 01/14/23 - Allergies Allergies/Adverse Reactions: Allergies Allergy/AdvReac Type Severity Reaction Status Date / Time lisinopril AdvReac Respiratory Verified 01/13/23 18:35 meperidine [From Demerol] AdvReac Dizziness Verified 01/13/23 18:35 Review of Systems - Gastrointestinal Gastrointestinal: reports: Abdominal pain - All Other Systems All Other Systems: reports: Reviewed and negative Exam - Vital Signs Vital Signs: Vital Signs x48h Temp Pulse Resp BP Pulse Ox 01/14/23 12:34 73 18 174/72 H 98 01/14/23 11:17 35.9 C L 77 18 137/118 H 100 01/14/23 09:34 75 18 136/92 H 100 01/14/23 06:29 37 C 83 20 125/75 100 01/14/23 04:59 36.8 C 71 20 127/86 H 100 - Physical Exam General Appearance: positive: Mild distress (from abd pain) Eyes Bilateral: positive: Normal inspection, EOMI ENT: positive: ENT inspection nml, No signs of dehydration Neck: positive: Nml inspection, No JVD Respiratory: positive: No respiratory distress, Breath sounds nml Cardiovascular: positive: Regular rate & rhythm, No murmur Abdomen: positive: Non-tender (No guarding or rebound noted, diminished bowel sounds.), No distention Extremities: positive: Non-tender, Nml appearance Neurologic/Psychiatric: positive: Oriented x3, Motor nml Conclusion/Plan - Problem List (1) Pancreatitis Conclusion/Plan: Etiology is unclear. Alternatively this could be a phase reactant of lipase elevation Plan: Bowel rest using just a clear liquid diet. Will advance diet to low-fat, diabetic diet as tolerated. IV fluids IV pain meds Qualifiers: Chronicity: acute Pancreatitis type: unspecified pancreatitis type Acute pancreatitis complication: unspecified Qualified Code(s): K85.90 - Acute pancreatitis without necrosis or infection, unspecified (2) DM type 2 (diabetes mellitus, type 2) Conclusion/Plan: Plan: Her CGM is broken and we are planning to do fingerstick checks with sliding scale insulin coverage Await reconciled med list regarding any long acting insulin she is on Clear liquid diet currently and will advance to a diabetic diet as tolerated - Lab Results Fish Bones: 01/15/23 05:34 01/15/23 05:34 - Diagnostic Imaging Results Diagnostic Imaging Results: positive: Final report reviewed - Other Other Results/Comments: Attestation: The patient is expected to be discharged or transferred to another facility within 96 hours: Yes.
[2023-01-14] MEDS: D5NS W/20 MEQ KCL 1,000 ML IV SCH ×2 (14:02→14:56)
--- NOTE | 2023-01-14 16:35 | PHARMACY PROGRESS NOTE ---
- Best Possible Medication History Admit Date and Time: 01/14/23 7553 Processed by: Pharmacy Medication History completed: Yes Patient Interview: Pt unable to participate Secondary Source(s): Spouse/Significant other (DARWIN SPOKE WITH SPOUSE OVER THE PHONE.) As the person ultimately responsible for medication therapy, providers are able to order a medication from an existing home medication list in [facility] via the "Reconcile Routine" prior to Confirmation of that medication by personal support worker. Such practice is discouraged except when the physician, in their clinical judgment, deems that a medical need exists for a medication without regard to previous use.
[2023-01-14] MEDS: SODIUM CHLORIDE FLUSH 0.9% 10 ML SYRINGE IVP SCH (16:45)
[2023-01-14] MEDS: LITHIUM ER 300 MG TABLET PO SCH (16:59)
[2023-01-14] MEDS: INSULIN REGULAR HUMAN 300 UNIT/3 ML VIAL SUBQ SCH (18:36)
--- NOTE | 2023-01-14 23:21 | PROVIDER PROGRESS NOTE ---
Forensic Chemist Note - Forensic Chemist Note Forensic Chemist Note: Patient complaining of itching discussed with RN and Benadryl 25 mg ivp x oen dose ordered
[2023-01-15] MEDS: INSULIN REGULAR HUMAN 300 UNIT/3 ML VIAL SUBQ SCH ×2 (00:32→06:13)
[2023-01-15] MEDS: SODIUM CHLORIDE FLUSH 0.9% 10 ML SYRINGE IVP SCH ×3 (01:01→17:36)
[2023-01-15] MEDS: D5NS W/20 MEQ KCL 1,000 ML IV SCH (02:16)
[2023-01-15] MEDS: HYDROmorphone 0.5 MG/0.5 ML SYRINGE IVP PRN (02:17)
[2023-01-15 05:50] LABS: BASOPHILS % (AUTO) 0.8 %; EOSINOPHILS # (AUTO) 0.1 10^3/uL (0.0-0.7); EOSINOPHILS % (AUTO) 1.8 %; HCT - HEMATOCRIT 42.3 % (37.0-47.0); HGB - HEMOGLOBIN 13.8 g/dL (12.0-16.0); LYMPHOCYTES # (AUTO) 1.1 10^3/uL (1.5-3.5); LYMPHOCYTES % (AUTO) 21.9 %; MEAN CORPUSCULAR HEMOGLOBIN 27.5 pg (27.0-31.0); MEAN CORPUSCULAR HGB CONC 32.6 g/dL (32.0-36.0); MEAN CORPUSCULAR VOLUME 84.3 fL (81.0-99.0); MEAN PLATELET VOLUME 10.1 fL (7.9-10.8); MONOCYTES # (AUTO) 0.4 10^3/uL (0.0-1.0); MONOCYTES % (AUTO) 8.7 %; NEUTROPHILS # (AUTO) 3.3 10^3/uL (1.5-6.6); NEUTROPHILS % (AUTO) 66.4 %; PLT - PLATELET COUNT 204 10^3/uL (130-450); RED BLOOD COUNT 5.02 10^6/uL (4.20-5.40); RED CELL DISTRIBUTION WIDTH 13.4 % (12.0-15.0)
[2023-01-15 06:03] LABS: CALCIUM 8.7 mg/dL (8.5-10.3); CREATININE 0.4 mg/dL (0.6-1.3); MAGNESIUM 1.5 mg/dL (1.7-2.3); POTASSIUM 4.2 mmol/L (3.5-4.5)
--- NOTE | 2023-01-15 08:55 | PROVIDER PROGRESS NOTE ---
Assessment/Plan - Problem List (1) Pancreatitis Qualifiers: Chronicity: acute Pancreatitis type: unspecified pancreatitis type Acute pancreatitis complication: unspecified Qualified Code(s): K85.90 - Acute pancreatitis without necrosis or infection, unspecified Assessment/Plan: Her mid-abd pain has decreased but c/o urinary frequency continues. She has needed narcotics x2 overnight for abd pain control. Her Lipase level has resolved Plan: Will start a solid, low fat diet and assess if she tolerates this Anticipate discharge soon (2) DM type 2 (diabetes mellitus, type 2) Assessment/Plan: Her reconciled med list shows 60 U long-acting insulin BID and 40 U short-acting TID. Despite those hogh Insulin doses, at admission she told me her usual gluc ose on CGM runs 300. A1c result is 15 This a.m. she had hypoglycemia with glucose 86 from having received a one-time p.m. insulin We also learned she goes to an Chief Radiation Therapist Dr. Bryson but has not seen that doctor in 1 year, has been going only to a Walk-In clinic, no even a PCP Her CGM is not working she told us. But the CGM insert needs to be replaced every 2 weeks. And we learned she has no refills, because demands an in person visit to give CGM refills Plan: I will start her on long-acting insulin 20 units twice daily Continue with fingerstick checks and sliding scale insulin coverage RN diabetic nurse consult ordered to evaluate if the patient is giving herself her insulin correctly, perhaps she is injecting it in the wrong spot or incompletely. She needs a lot of diabetic education and closer follow-up (3) Increased urinary frequency Assessment/Plan: The patient is required to urinate nearly every hour. RNs perform bladder scan and she has nearly no residual (30 cc). In the ER, her UA was unremarkable. Repeated the UA today and it was again not showing UTI. Today the patient told me she always goes to urinate every hour Today we learned that she has very poor insulin administration, has an A1c of 15, and now I suspect her urinary frequency is from hyperglycemia Plan: As above in #2, she needs better overall DM management - Current Meds Current Meds: Current Medications Generic Name Dose Route Start Last Admin Trade Name Freq PRN Reason Stop Dose Admin Hydromorphone HCl 0.5 mg 01/14/23 01:53 01/15/23 02:17 Hydromorphone 0.5 Mg/0.5 Ml Syringe IVP 0.5 mg Q4H PRN Administration PAIN >8 Potassium Chloride/Dextrose/Sod Cl 1,000 mls @ 100 mls/hr 01/14/23 13:00 01/15/23 02:16 D5ns W/20 Meq Kcl IV 100 mls/hr .Q10H MARIAMA Administration Insulin Human Regular 1 - 5 unit 01/14/23 18:00 01/15/23 06:13 Insulin Regular Human 300 Unit/3 Ml Vial SUBQ 3 unit Q6HR MARIAMA Administration Protocol [place] Carbonate 300 mg 01/14/23 17:00 01/14/23 16:59 [place] Er 300 Mg Tablet PO 300 mg QDDINNER MARIAMA Administration Sodium Chloride 10 ml 01/14/23 17:00 01/15/23 08:26 Sodium Chloride Flush 0.9% 10 Ml Syringe IVP 10 ml 0100,0900,1700 MARIAMA Administration - Lab Result Fish Bone Diagrams: 01/15/23 05:34 01/15/23 05:34 - Additional Planning My Orders: My Active Orders 01/14/23 12:45 Activity Orders [RC] Q2HR IO [RC] IOSHIFT Initiate Line Care Protocol [RC] QSGAFT Oxygen Therapy [RC] .PRN Vital Signs [RC] 0800,1600,0000 HYDROmorphone 0.5MG SYRINGE [Dilaudid 0.5MG Syringe] 0.5 mg IVP Q2H PRN Ondansetron Inj [Zofran Inj] 4 mg IVP Q6HR PRN Prochlorperazine Inj [Compazine Inj] 10 mg IVP Q6HR PRN Sodium Chloride Flush 0.9% [Normal Saline Flush 0.9%] 10 ml IVP PRN PRN Code Status [OTHERS] Routine Condition of Patient [OTHERS] Routine DVT Prophylaxis [OTHERS] Routine 01/14/23 12:46 Daily Weight [RC] 0600 01/14/23 12:47 IV Insert [RC] .ONCE Initiate Line Care Protocol [RC] QSHIFT SCDs [RC] QSHIFT 01/14/23 12:49 Blood Glucose POC [RC] 0000,0600,1200,1800 Initiate Hypoglycemia Protocol [RC] .protocol 01/14/23 13:00 D5ns W/20 Meq KCl 1,000 ml IV 100 mls/hr 01/14/23 Dinner Clear Liquid Diet [DIET] 01/14/23 17:00 Sodium Chloride Flush 0.9% [Normal Saline Flush 0.9%] 10 ml IVP 0100,0900,1700 01/14/23 18:00 Insulin Regular Human [Humulin R] 1 - 5 unit SUBQ Q6HR 01/15/23 05:34 HEMOGLOBIN A1c% [CHEM] DAILYLAB 01/15/23 08:51 UA, MICROSCOPIC & CULT IF [URIN] Stat 01/15/23 Lunch Low Fat Diet [DIET] 01/16/23 05:00 BMP - BASIC METABOLIC PANEL [CHEM] DAILYLAB CBC - COMP BLD CT W/AUTO DIFF [HEME] DAILYLAB LIPASE [CHEM] DAILYLAB 01/17/23 05:00 BMP - BASIC METABOLIC PANEL [CHEM] DAILYLAB CBC - COMP BLD CT W/AUTO DIFF [HEME] DAILYLAB LIPASE [CHEM] DAILYLAB 01/18/23 05:00 BMP - BASIC METABOLIC PANEL [CHEM] DAILYLAB CBC - COMP BLD CT W/AUTO DIFF [HEME] DAILYLAB LIPASE [CHEM] DAILYLAB Subjective - Subjective Patient Reports: Other (Less abdominal pain, after she had a big bowel movement but still present, constant pain in the RLQ) Objective Vital Signs: Vital Signs - 24 hr 01/14/23 01/14/23 01/14/23 09:34 11:17 12:34 Temperature 35.9 C L Heart Rate 75 77 73 Heart Rate [ Brachial] Respiratory 18 18 18 Rate Blood Pressure 136/92 H 137/118 H 174/72 H Blood Pressure [Right Brachial artery] O2 Saturation 100 100 98 01/14/23 01/14/23 01/14/23 15:00 15:48 23:38 Temperature 36.9 C 36.8 C 36.7 C Heart Rate Heart Rate [ 67 66 62 Brachial] Respiratory 16 16 16 Rate Blood Pressure Blood Pressure 150/76 H 150/75 H 126/69 [Right Brachial artery] O2 Saturation 100 100 99 Oxygen O2 Source Room air I&O (Last 24 Hrs): Intake and Output Totals x24h 01/13/23 01/14/23 01/15/23 23:59 23:59 23:59 Intake Total 1000 2916.108 655 Output Total 1220 575 Balance 1000 1696.108 80 General: Alert, Oriented x3, Other (Disheveled) HEENT: Mucous membr. moist/pink, Other (Unequal lids, L eye squinting) Neck: Supple Neuro: Alert, Non Focal Cardiovascular: Regular rate, No murmurs Respiratory: No respiratory distress, Breath sounds nml Abdomen: Normal bowel sounds, Soft, No tenderness Extremities: No clubbing, No edema, No tenderness/swelling - Results Results: Laboratory Results WBC 5.0 x10^3/uL (4.8-10.8) 01/15/23 05:34 RBC 5.02 10^6/uL (4.20-5.40) 01/15/23 05:34 Hgb 13.8 g/dL (12.0-16.0) 01/15/23 05:34 Hct 42.3 % (37.0-47.0) 01/15/23 05:34 MCV 84.3 fL (81.0-99.0) 01/15/23 05:34 MCH 27.5 pg (27.0-31.0) 01/15/23 05:34 MCHC 32.6 g/dL (32.0-36.0) 01/15/23 05:34 RDW 13.4 % (12.0-15.0) 01/15/23 05:34 Plt Count 204 10^3/uL (130-450) 01/15/23 05:34 MPV 10.1 fL (7.9-10.8) 01/15/23 05:34 Neut # (Auto) 3.3 10^3/uL (1.5-6.6) 01/15/23 05:34 Lymph # (Auto) 1.1 10^3/uL (1.5-3.5) L 01/15/23 05:34 [place] # (Auto) 0.4 10^3/uL (0.0-1.0) 01/15/23 05:34 Eos # (Auto) 0.1 10^3/uL (0.0-0.7) 01/15/23 05:34 Baso # (Auto) 0.0 10^3/uL (0.0-0.1) 01/15/23 05:34 Absolute Nucleated RBC 0.00 x10^3/uL 01/15/23 05:34 Nucleated RBC % 0.0 /100WBC 01/15/23 05:34 Sodium 137 mmol/L (135-145) 01/15/23 05:34 Potassium 4.2 mmol/L (3.5-4.5) 01/15/23 05:34 Chloride 107 mmol/L (101-111) 01/15/23 05:34 Carbon Dioxide 25 mmol/L (21-32) 01/15/23 05:34 Anion Gap 5.0 (6-13) L 01/15/23 05:34 BUN 10 mg/dL (6-20) 01/15/23 05:34 Creatinine 0.4 mg/dL (0.6-1.3) L 01/15/23 05:34 Estimated GFR (MDRD) 161 (>89) 01/15/23 05:34 Glucose 279 mg/dL (74-104) H 01/15/23 05:34 POC Whole Bld Glucose 205 mg/dL (70 - 100) H 01/15/23 08:24 Calcium 8.7 mg/dL (8.5-10.3) 01/15/23 05:34 Magnesium 1.5 mg/dL (1.7-2.3) L 01/15/23 05:34 Total Bilirubin 0.3 mg/dL (0.2-1.0) 01/13/23 19:48 AST 13 IU/L (10-42) 01/13/23 19:48 ALT 23 IU/L (10-60) 01/13/23 19:48 Alkaline Phosphatase 112 IU/L (42-121) 01/13/23 19:48 Total Protein 6.4 g/dL (6.4-8.9) 01/13/23 19:48 Albumin 3.9 g/dL (3.2-5.5) 01/13/23 19:48 Globulin 2.5 g/dL (2.1-4.2) 01/13/23 19:48 Albumin/Globulin Ratio 1.6 (1.0-2.2) 01/13/23 19:48 Triglycerides 141 mg/dL (48-352) 01/14/23 07:20 Lipase 45 U/L (11-82) 01/15/23 05:34 Urine Color YELLOW 01/13/23 18:38 Urine Clarity CLEAR (CLEAR) 01/13/23 18:38 Urine pH 6.0 PH (5.0-7.5) 01/13/23 18:38 Ur Specific [place] 1.010 (1.002-1.030) 01/13/23 18:38 Urine Protein 30 mg/dL (NEGATIVE) H 01/13/23 18:38 Urine Glucose (UA) >=1000 mg/dL (NEGATIVE) H 01/13/23 18:38 Urine Ketones NEGATIVE mg/dL (NEGATIVE) 01/13/23 18:38 Urine Occult Blood NEGATIVE (NEGATIVE) 01/13/23 18:38 Urine Nitrite NEGATIVE (NEGATIVE) 01/13/23 18:38 Urine Bilirubin NEGATIVE (NEGATIVE) 01/13/23 18:38 Urine Urobilinogen 0.2 (NORMAL) E.U./dL (NORMAL) 01/13/23 18:38 Ur Leukocyte Esterase NEGATIVE (NEGATIVE) 01/13/23 18:38 Urine RBC 0-5 /HPF (0-5) 01/13/23 18:38 Urine WBC 0-3 /HPF (0-5) 01/13/23 18:38 Ur Squamous Epith Cells RARE Squamous (<= Few) 01/13/23 18:38 Urine Bacteria None Seen /HPF (None Seen) 01/13/23 18:38 Ur Microscopic Review INDICATED 01/13/23 18:38 Urine Culture Comments NOT INDICATED 01/13/23 18:38 Last Dose Date UNK 01/14/23 07:20 Last Dose Time UNK 01/14/23 07:20 [place] < 0.10 mmol/L 01/14/23 07:20 Ethyl Alcohol < 10.0 mg/dL 01/14/23 07:20
[2023-01-15] MEDS ORDERED: HYDROmorphone 0.5 MG/0.5 ML SYRINGE IVP PRN (09:00)
[2023-01-15] MEDS ORDERED: D5NS W/20 MEQ KCL 1,000 ML IV SCH (09:01)
[2023-01-15 09:31] LABS: BILIRUBIN,URINE NEGATIVE (NEGATIVE); GLUCOSE, URINE (UA) >=1000 mg/dL (NEGATIVE); KETONES,URINE (UA) NEGATIVE (NEGATIVE); LEUKOCYTE ESTERASE, URINE NEGATIVE (NEGATIVE); NITRITE,URINE NEGATIVE (NEGATIVE); OCCULT BLOOD,URINE NEGATIVE (NEGATIVE); PROTEIN,URINE TRACE mg/dL (NEGATIVE); UROBILINOGEN,URINE 0.2 (NORMAL) E.U./dL (NORMAL)
[2023-01-15 09:39] LABS: CLARITY,URINE CLEAR (CLEAR)
[2023-01-15] MEDS ORDERED: MAGNESIUM SULFATE 2 GRAM 2 GM/50 ML BAG IV ONE (10:54)
[2023-01-15] MEDS: diphenhydrAMINE 25 MG CAPSULE PO PRN ×2 (11:21→20:03)
[2023-01-15 11:56] LABS: ESTIMATED AVERAGE GLUCOSE 384 mg/dL (70-100)
[2023-01-15] MEDS ORDERED: INSULIN LISPRO 300 UNIT/3 ML PEN SUBQ SCH (12:00)
[2023-01-15] MEDS: LITHIUM ER 300 MG TABLET PO SCH (17:35)
[2023-01-15] MEDS: INSULIN LISPRO 300 UNIT/3 ML PEN SUBQ SCH ×2 (17:36→21:15)
[2023-01-16] MEDS: SODIUM CHLORIDE FLUSH 0.9% 10 ML SYRINGE IVP SCH ×3 (00:20→15:46)
[2023-01-16] MEDS: diphenhydrAMINE 25 MG CAPSULE PO PRN (02:22)
[2023-01-16 05:23] LABS: BASOPHILS % (AUTO) 0.5 %; EOSINOPHILS # (AUTO) 0.1 10^3/uL (0.0-0.7); EOSINOPHILS % (AUTO) 1.9 %; HCT - HEMATOCRIT 43.2 % (37.0-47.0); HGB - HEMOGLOBIN 14.1 g/dL (12.0-16.0); LYMPHOCYTES % (AUTO) 15.3 %; MEAN CORPUSCULAR HEMOGLOBIN 27.4 pg (27.0-31.0); MEAN CORPUSCULAR HGB CONC 32.6 g/dL (32.0-36.0); MEAN CORPUSCULAR VOLUME 83.9 fL (81.0-99.0); MEAN PLATELET VOLUME 9.7 fL (7.9-10.8); MONOCYTES # (AUTO) 0.5 10^3/uL (0.0-1.0); MONOCYTES % (AUTO) 7.3 %; NEUTROPHILS # (AUTO) 4.6 10^3/uL (1.5-6.6); NEUTROPHILS % (AUTO) 74.7 %; PLT - PLATELET COUNT 195 10^3/uL (130-450); RED BLOOD COUNT 5.15 10^6/uL (4.20-5.40); RED CELL DISTRIBUTION WIDTH 13.3 % (12.0-15.0); WHITE BLOOD COUNT 6.2 x10^3/uL (4.8-10.8)
[2023-01-16 06:00] LABS: CALCIUM 9.3 mg/dL (8.5-10.3); CREATININE 0.5 mg/dL (0.6-1.3); MAGNESIUM 1.7 mg/dL (1.7-2.3); POTASSIUM 4.3 mmol/L (3.5-4.5)
[2023-01-16 08:08] VITALS: O2SAT 100
[2023-01-16] MEDS: INSULIN LISPRO 300 UNIT/3 ML PEN SUBQ SCH ×3 (08:20→16:56)
[2023-01-16] MEDS ORDERED: INSULIN GLARGINE-YFGN 300 UNIT/3 ML PEN SUBQ SCH (10:40)
[2023-01-16] MEDS: LITHIUM ER 300 MG TABLET PO SCH (16:56)
[2023-01-16 18:29] VITALS: BP 147/70
--- NOTE | 2023-01-16 18:44 | Discharge Plan ---
Discharge Plan Problem Reviewed?: Yes Disposition: Home, Self Care Condition: Fair Prescriptions: Insulin Glargine [Lantus Solostar] 10 unit EACHEYE BID #1 ea [place] ER [Lithobid] 300 mg PO 1700 #30 tab Diet: Diabetic Activity Restrictions: Activity as Tolerated Shower Restrictions: No Driving Restrictions: No Instruction Topics: Cooking Tips Low Fat, Flavor Add Low Fat Meals, Eating Healthy Go Health Concerns: You were hospitalized to treat abdominal pain which we thought was from pancreatitis. The blood test showing the pancreatitis improved after just 1 day. We did discover that you are taking your insulin completely the wrong way. Ypur A1c test came back 15. Due to very high blood sugar levels, you have to urinate so frequently and that is why your doctor has been ordering higher and higher doses of Insulin for you as an outpatient. You are being discharged home today with a new prescription for Lantus Insulin in a pen, to take twice a day. Please inject it correctly. Our nurses taught you how to inject it correctly and monitored to make sure you are doing it correctly. Do not use your old insulin prescription pens. You must see your provider to get a refill on the CGM insert to monitor your blood sugar correctly. You must also see your Diabetic specialist/Housekeeper Caregiver, so that you have better management of your diabetes. You could also come to the [facility] diabetic education clinic care. Untreated diabetes can give you a stroke with permanent damage, or a heart attack, and uncontrolled diabetes is very serious if it is treated incorrectly. New prescription for Lantus insulin 10 units subcu to take twice daily using a pen, and daily [place] to take at dinnertime, were prescribed electronically to your [facility] pharmacy in [place]. Plan of Treatment: As above. Care Goals: Improvement in symptoms and stabilization are the goals. Assessment: These instructions are given to you as a reminder. Additional Instructions or Follow Up instructions: If you again get glucose levels of 300, do not ignore that, go see your provider or your Diabetic specialist. Follow-Up Care: [facility] - Diabetes Ed No Smoking: If you smoke, Please STOP! Call for help.
--- NOTE | 2023-01-16 18:50 | DISCHARGE SUMMARY ---
Discharge Summary Admit Date: 01/14/23 Discharge Date: 01/16/23 Discharging Provider: Dr Anisha Cassidy Primary Care Provider: [facility] provider, and Dr Bryson (Endocrine) Code Status: Attempt Resuscitation Condition at Discharge: Fair Discharge Disposition: 01 Home, Self Care - HPI History of Present Illness: This is a 62-year-old female with history of type 2 diabetes, monitors her glu with a CGM. She developed abdominal pain yesterday with nausea and some vomiting. She presented to the ER today. The patient denies having a fever, or having vomiting or diarrhea. She has not been exposed to sick contacts. Work- up showed she had elevated lipase in 400's and is felt to have pancreatitis. CT imaging showed constipation and no abnormalities of the pancreas were seen. The patient denies being a daily alcohol drinker, she drinks on holidays only she told me. Triglycerides were checked and were normal. The patient was given clear liquids and IV fluids and pain meds. She continues to need narcotics for pain control. The ED provider reached out to me on the Hospitalist service and we discussed this patient. She will be admitted for management of pancreatitis, requiring narcotics for pain control. - HOSPITAL COURSE Hospital Course: (1) Pancreatitis Her mid-abd pain improved with narcotics after a day, and the Lipase level normalized by the next day. Her diet was advanced from clear liquids to a solid DM diet, and she tolerated this. (2) Hyperglycemia due to DM type 2 Her reconciled med list showed she was prescribed 60 U long-acting insulin BID and 40 U short-acting TID. Despite those high Insulin doses, at admission she told me her usual glucose on CGM runs 300. Her A1c result came back 15. One morning, she had hypoglycemia with a glucose 86, after having received p.m. Lantus insulin 20U, not her 60U. Her Insulin dose was eventually adjusted and she was discharged on Lantus 20 U sq BID. (3) Increased urinary frequency The patient needed to urinate nearly every hour. Nurses performed bladder scanning and she had nearly no residual (30 cc) in the bladder, so not retention. In the ER, her UA was unremarkable. We repeated the UA and it was again not showing UTI. Once we saw the A1c of 15, we suspected that her urinary frequency is from hyperglycemia (4) Noncompliance with medication regimen When the patient reported she had repeat glucose values of 300 on her CGM, I ordered a dietitian consult. The dietitian found that the pt had many mistakes with her Insulin dosing. We then ordered the Diabetic RN Educator to see the patient. We learned that the patient was not setting her pen right, and was not injecting the pen at all, and was therefore was getting no sq insulin whatsoever. This is likely the reason that her outpatient provider kept increasing the dose which was supposedly 60 units twice daily. We learned she used to go to Vocational Rehabilitation Teacher Dr. Bryson, but has not seen that doctor in 1 year, and has been going only to a Walk-In clinics for Insulin prescriptions. We also learned that she had not gone to see her provider in 1 year and therefore did not have refills for her CGM. Therefore, she was not measuring her blood sugar correctly at all. The Diabetic Nurse Educator and the pt's RNs educated her, and then we monitored her giving herself her Insulin injections several times, before she was discharged. She was strongly uradvised to see her provider, see her Vocational Rehabilitation Teacher and see a PCP, not Walk-In Clinic provider, for diabetic management. - ALLERGIES Allergies/Adverse Reactions: Allergies Allergy/AdvReac Type Severity Reaction Status Date / Time lisinopril AdvReac Respiratory Verified 01/13/23 18:35 meperidine [From Demerol] AdvReac Dizziness Verified 01/13/23 18:35 - MEDICATIONS Home Medications: Ambulatory Orders Medication Instructions Recorded Confirmed Insulin Aspart (Vial) [NovoLOG 40 units SUBQ TIDWM 09/13/14 01/15/23 (VIAL FOR ED USE)] Blood Sugar Diagnostic [Glucometer 1 each MC BID #60 strip 09/04/19 01/14/23 Strips] Blood-Glucose Meter [Glucometer] 1 each MC BID #1 each 09/04/19 01/14/23 Albuterol Sulf [Ventolin Hfa 2 puffs INH Q4HR PRN 01/14/23 01/14/23 Inhaler] Latanoprost 0.005% Ophth Drops 1 drops OPTH HS 01/14/23 01/14/23 [Xalatan Ophth Drops] Insulin Glargine [Lantus Solostar] 10 unit EACHEYE BID #1 ea 01/16/23 [place] ER [Lithobid] 300 mg PO 1700 #30 tab 01/16/23 - PHYSICAL EXAM AT DISCHARGE General Appearance: positive: No acute distress, Alert Eyes Bilateral: positive: Other (Lid lag on one side) ENT: positive: ENT inspection nml, No signs of dehydration Neck: positive: Nml inspection, No JVD Respiratory: positive: No respiratory distress, Breath sounds nml Cardiovascular: positive: Regular rate & rhythm, No murmur Abdomen: positive: Non-tender, No distention Skin: positive: Warm, Dry Extremities: positive: Non-tender, No pedal edema Neurologic/Psychiatric: positive: Oriented x3, Other (Lid lag one side. Poor memory.) - LABS Result Diagrams: 01/16/23 05:10 01/16/23 05:10 - DIAGNOSTIC IMAGING Diagnostic Imaging Results: Final report reviewed - FOLLOW UP Follow Up: See PCP and Vocational Rehabilitation Teacher (Dr Bryson) in next 1-2 weeks. - TIME SPENT Time Spent in Discharge (Minutes): 40
== END 2023-01-16 19:54 | disposition home or self-care (01) | DRG 440 ==
LOC: ED 18:19 → MS2 01-14 12:45
PROVIDERS: ADMIT Internal Medicine; ATTEND Internal Medicine
DX: K85.90 Acute pancreatitis without necrosis or infection, unspecified (principal); E11.65 Type 2 diabetes mellitus with hyperglycemia; E11.649 Type 2 diabetes mellitus with hypoglycemia without coma; Z79.4 Long term (current) use of insulin; R35.0 Frequency of micturition; T38.3X6A Underdosing of insulin and oral hypoglycemic [antidiabetic] drugs, initial encounter; Z91.138 Patient's unintentional underdosing of medication regimen for other reason; K21.9 Gastro-esophageal reflux disease without esophagitis; Z87.891 Personal history of nicotine dependence
CPT/HCPCS: 36415; 74177; 76705; 80048; 80053; 80178; 80320; 81001; 81003; 83036; 83690; 83735; 84478; 85025; 96374; 96375; 99285; A9270; J1170; J1200; J1815; Q9967; 87086

== ENCOUNTER 2023-01-18 08:00 | Outpatient (CLI) | payer OTHER | END 2023-01-18 23:59 | disposition home or self-care (01) | LOC: LAB.N 08:00 | PROVIDERS: ATTEND Registered Nurse | DX: R30.0 Dysuria (principal) | CPT/HCPCS: 87077; 87086; 87181 ==

== ENCOUNTER 2023-01-19 16:38 | Emergency (ER) | payer OTHER ==
[2023-01-19 17:04] VITALS: BP 148/64; O2SAT 100
--- NOTE | 2023-01-19 18:25 | ED Physician Documentation ---
PD HPI FEMALE - Stated complaint Stated Complaint: - Chief complaint Chief Complaint: UTI - History obtained from History obtained from: Patient - History of Present Illness Timing - onset: How many days ago (2-3 days of having some dysuria and frequency. Was discharged 3 days ago from hospital for pancreatitis. She states did have brief urine catheter for retention. Has symptoms dysuria 3 days now.) Timing - details: Abrupt onset, Waxing and waning Associated symptoms: Dysuria, Urinary frequency. No: Fever, Vaginal discharge, Genital sore/lesion Similar symptoms before: Diagnosis (UTI) Recently seen: Clinic (walk in clinic for the dysuria and also about Rx for Lantus pen, as [facility] unable to fill it until Wednesday. Pt states she was told to go to ER for script (Editors note: I am not sure why they could not give her script to get at other pharmacy).), Admitted (for pancreatitis for 5 days (?). 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: None : None HEENT: None Psych: Bipolar disorder Musculoskeletal: None Derm: None - Past Surgical History Past Surgical History: Yes /SEMICONDUCTOR PACKAGES LEAK TESTER: Tubal ligation - Present Medications Home Medications: Ambulatory Orders Medication Instructions Recorded Confirmed Insulin Aspart (Vial) [NovoLOG 40 units SUBQ TIDWM 09/13/14 01/15/23 (VIAL FOR ED USE)] Blood Sugar Diagnostic [Glucometer 1 each BID #60 strip 09/04/19 01/14/23 Strips] Blood-Glucose Meter [Glucometer] 1 each MC BID #1 each 09/04/19 01/14/23 Albuterol Sulf [Ventolin Hfa 2 puffs INH Q4HR PRN 01/14/23 01/14/23 Inhaler] Latanoprost 0.005% Ophth Drops 1 drops OPTH HS 01/14/23 01/14/23 [Xalatan Ophth Drops] [place] ER [Lithobid] 300 mg PO 1700 #30 tab 01/16/23 Insulin Glargine [Lantus Solostar] 10 unit SUBQ BID #1 ea 01/17/23 Insulin Glargine [Lantus Solostar] 10 unit SUBQ BID #1 ea 01/19/23 Meloxicam [Mobic] 7.5 mg PO BID 10 Days #12 tablet 01/19/23 Phenazopyridine HCl [Pyridium] 100 mg PO TID PRN #15 tablet 01/19/23 cephALEXin [Keflex] 500 mg PO TID #18 cap 01/19/23 - Allergies Allergies/Adverse Reactions: Allergies Allergy/AdvReac Type Severity Reaction Status Date / Time lisinopril AdvReac Respiratory Verified 01/19/23 16:59 meperidine [From Demerol] AdvReac Dizziness Verified 01/19/23 16:59 - Social History Does the pt smoke?: No Smoking Status: Never smoker Does the pt drink ETOH?: No Does the pt have substance abuse?: No - Immunizations Immunizations are current?: Yes - POLST Patient has POLST: No PD ED PE NORMAL - Vitals Vital signs reviewed: Yes - General General: Alert and oriented X 3, No acute distress, Well developed/nourished - Abdomen Abdomen: Soft, Non tender - Female Female : Deferred - Back Back: No CVA TTP Results - Vitals Vitals: Vital Signs - 24 hr 01/19/23 16:55 Temperature 36.6 C Heart Rate 73 Respiratory 18 Rate Blood Pressure 148/64 H O2 Saturation 100 Oxygen O2 Source Room air - Labs Labs: Laboratory Tests 01/19/23 18:15 Urine Color YELLOW Urine Clarity CLEAR Urine pH 6.0 Ur Specific [place] 1.015 Urine Protein 30 H Urine Glucose (UA) >=1000 H Urine Ketones NEGATIVE Urine Occult Blood TRACE-INTA Urine Nitrite NEGATIVE Urine Bilirubin NEGATIVE Urine Urobilinogen 0.2 (NORMAL) Ur Leukocyte Esterase NEGATIVE Urine RBC 6-10 H Urine WBC 11-25 H Ur Squamous Epith Cells FEW Squamous Urine Bacteria Rare Ur Microscopic Review INDICATED Urine Culture Comments NOT INDICATED PD Medical Decision Making - ED course Complexity details: considered differential (The patient is having dysuria and frequency. She was seen in the walk-in yesterday with urinalysis suggestive of UTI. Culture is pending. I looked at it now and it still pending. We can treat empirically for now though the current UA is appears negative. consider IC treatment.), d/w patient Social Determinants of Health: She was unable to get Lantus pen Rx filled at [facility] pharmacy as they did not have it. Requests Rx to [facility] for one pen for now. Also still with dysuria. Seen Walk IN yesterday and had UA positive apparently and Urine culture is still pending. Can treat empirically for UTI versus interstitial cystitis pending culture. Departure - Departure Disposition: Home, Self Care Clinical Impression: Dysuria, Medication refill, Diabetes Condition: Stable Record reviewed to determine appropriate education?: Yes Prescriptions: cephALEXin [Keflex] 500 mg PO TID #18 cap Insulin Glargine [Lantus Solostar] 10 unit SUBQ BID #1 ea Meloxicam [Mobic] 7.5 mg PO BID 10 Days #12 tablet Phenazopyridine HCl [Pyridium] 100 mg PO TID PRN #15 tablet PRN Reason: Abdominal Pain Comments: Your urine today does not show an obvious infection. The test from the clinic apparently was suggestive and the urine culture from that yesterday is still pending results so we will not be available till tomorrow or the next. Given your symptoms we can treat it as a possible bladder infection with cephalexin 3 times daily for the next 6 days. It is possible you may have some irritation of the bladder and urethra leading to similar symptoms. This will get treated with anti-inflammatories and me dication to numb the bladder and urethra called phenazopyridine/Pyridium. I also wrote a prescription for 1 pen of your Lantus to get for now. I sent these prescriptions to the [facility] pharmacy. The urine culture should result in the next day or 2 and we will call you if we need to change the antibiotic choice based on that. Forms: PCP List Discharge Date/Time: 01/19/23 18:50
[2023-01-19 18:27] LABS: BILIRUBIN,URINE NEGATIVE (NEGATIVE); GLUCOSE, URINE (UA) >=1000 mg/dL (NEGATIVE); KETONES,URINE (UA) NEGATIVE (NEGATIVE); LEUKOCYTE ESTERASE, URINE NEGATIVE (NEGATIVE); NITRITE,URINE NEGATIVE (NEGATIVE); OCCULT BLOOD,URINE TRACE-INTA (NEGATIVE); PROTEIN,URINE 30 mg/dL (NEGATIVE); UROBILINOGEN,URINE 0.2 (NORMAL) E.U./dL (NORMAL)
[2023-01-19 18:29] LABS: CLARITY,URINE CLEAR (CLEAR)
[2023-01-19] MEDS ORDERED: ACETAMINOPHEN 325 MG TABLET PO STA (18:35)
[2023-01-19] MEDS ORDERED: cephALEXin 250 MG CAPSULE PO STA (18:35)
[2023-01-19] MEDS ORDERED: PHENAZOPYRIDINE 100 MG TABLET PO STA (18:35)
[2023-01-19 18:58] LABS: BACTERIA,URINE Rare /HPF (None Seen); SQUAMOUS EPITHELIAL CELL,UR FEW Squamous (<= Few)
== END 2023-01-19 18:50 | disposition home or self-care (01) ==
LOC: ED 16:38
DX: R30.0 Dysuria (principal); Z76.0 Encounter for issue of repeat prescription; E11.9 Type 2 diabetes mellitus without complications; Z79.4 Long term (current) use of insulin
CPT/HCPCS: 81001; 99283; A9270; 81003; 87086

== ENCOUNTER 2023-01-19 23:58 | Outpatient (CLI) | payer OTHER | END 2023-01-19 23:59 | disposition critical access hospital (66) | LOC: EMS 23:58 | DX: R31.9 Hematuria, unspecified (principal); N39.0 Urinary tract infection, site not specified | CPT/HCPCS: A0425; A0429 ==

== ENCOUNTER 2023-01-20 00:18 | Emergency (ER) | payer OTHER ==
[2023-01-20 01:13] LABS: BILIRUBIN,URINE NEGATIVE (NEGATIVE); GLUCOSE, URINE (UA) 100 mg/dL (NEGATIVE); KETONES,URINE (UA) NEGATIVE (NEGATIVE); LEUKOCYTE ESTERASE, URINE TRACE (NEGATIVE); NITRITE,URINE POSITIVE (NEGATIVE); OCCULT BLOOD,URINE NEGATIVE (NEGATIVE); PH,URINE 5.5 PH (5.0-7.5); PROTEIN,URINE 100 mg/dL (NEGATIVE); UROBILINOGEN,URINE 1 (NORMAL) E.U./dL (NORMAL)
[2023-01-20 01:20] LABS: BACTERIA,URINE Rare /HPF (None Seen); CLARITY,URINE CLEAR (CLEAR); RBC,URINE 0-5 /HPF (0-5); SQUAMOUS EPITHELIAL CELL,UR FEW Squamous (<= Few)
[2023-01-20 01:26] VITALS: BP 129/68; O2SAT 98
[2023-01-20 01:28] LABS: BASOPHILS # (AUTO) 0.1 10^3/uL (0.0-0.1); BASOPHILS % (AUTO) 0.6 %; EOSINOPHILS # (AUTO) 0.1 10^3/uL (0.0-0.7); EOSINOPHILS % (AUTO) 1.7 %; HCT - HEMATOCRIT 41.1 % (37.0-47.0); HGB - HEMOGLOBIN 13.3 g/dL (12.0-16.0); LYMPHOCYTES % (AUTO) 23.3 %; MEAN CORPUSCULAR HEMOGLOBIN 27.5 pg (27.0-31.0); MEAN CORPUSCULAR HGB CONC 32.4 g/dL (32.0-36.0); MEAN CORPUSCULAR VOLUME 85.1 fL (81.0-99.0); MEAN PLATELET VOLUME 10.3 fL (7.9-10.8); MONOCYTES % (AUTO) 11.7 %; NEUTROPHILS # (AUTO) 5.3 10^3/uL (1.5-6.6); NEUTROPHILS % (AUTO) 62.3 %; PLT - PLATELET COUNT 257 10^3/uL (130-450); RED BLOOD COUNT 4.83 10^6/uL (4.20-5.40); RED CELL DISTRIBUTION WIDTH 13.3 % (12.0-15.0); WHITE BLOOD COUNT 8.5 x10^3/uL (4.8-10.8)
[2023-01-20 01:57] LABS: CALCIUM 9.5 mg/dL (8.5-10.3); CREATININE 0.6 mg/dL (0.6-1.3); POTASSIUM 3.4 mmol/L (3.5-4.5)
[2023-01-20] MEDS ORDERED: cephALEXin 250 MG CAPSULE PO STA (03:05)
--- NOTE | 2023-01-20 03:08 | ED Physician Documentation ---
PD HPI FEMALE - Stated complaint Stated Complaint: HEMATURIA - Chief complaint Chief Complaint: UTI - History obtained from History obtained from: Patient - Additional information Additional information: Patient is a 62-year-old female with a history of insulin-dependent diabetes presenting for evaluation of noticing abnormal colored urine at this evening around 10:00. Patient reports noticing a pinkish-orange color to her urine and was concerned that she was bleeding. She was seen earlier today in the ER for 2 to 3-day history of having some dysuria and frequency. She was also recently seen at walk-in clinic. She was given a prescription earlier today for an antibiotic but has not yet started it. She reports urinary frequency. She denies fever, chest pain, abdominal pain, vomiting. Denies flank pain. Review of Systems Constitutional: denies: Fever Cardiac: denies: Chest pain / pressure Respiratory: denies: Dyspnea GI: denies: Abdominal Pain : reports: Frequency Musculoskeletal: denies: Back pain PD PAST MEDICAL HISTORY - Past Medical History Cardiovascular: High cholesterol Respiratory: None Neuro: None Endocrine/Autoimmune: Type 2 diabetes GI: GERD VENEER TRIMMER: None : None HEENT: None Psych: Bipolar disorder Musculoskeletal: None Derm: None - Past Surgical History Past Surgical History: Yes /VENEER TRIMMER: Tubal ligation - Present Medications Home Medications: Ambulatory Orders Medication Instructions Recorded Confirmed Insulin Aspart (Vial) [NovoLOG 40 units SUBQ TIDWM 09/13/14 01/15/23 (VIAL FOR ED USE)] Blood Sugar Diagnostic [Glucometer 1 each MC BID #60 strip 09/04/19 01/14/23 Strips] Blood-Glucose Meter [Glucometer] 1 each BID #1 each 09/04/19 01/14/23 Albuterol Sulf [Ventolin Hfa 2 puffs INH Q4HR PRN 01/14/23 01/14/23 Inhaler] Latanoprost 0.005% Ophth Drops 1 drops OPTH HS 01/14/23 01/14/23 [Xalatan Ophth Drops] [place] ER [Lithobid] 300 mg PO 1700 #30 tab 01/16/23 Insulin Glargine [Lantus Solostar] 10 unit SUBQ BID #1 ea 01/17/23 Insulin Glargine [Lantus Solostar] 10 unit SUBQ BID #1 ea 01/19/23 Meloxicam [Mobic] 7.5 mg PO BID 10 Days #12 tablet 01/19/23 Phenazopyridine HCl [Pyridium] 100 mg PO TID PRN #15 tablet 01/19/23 cephALEXin [Keflex] 500 mg PO TID #18 cap 01/19/23 - Allergies Allergies/Adverse Reactions: Allergies Allergy/AdvReac Type Severity Reaction Status Date / Time lisinopril AdvReac Respiratory Verified 01/20/23 00:45 meperidine [From Demerol] AdvReac Dizziness Verified 01/20/23 00:45 - Social History Does the pt smoke?: No Smoking Status: Never smoker Does the pt drink ETOH?: No Does the pt have substance abuse?: No - Immunizations Immunizations are current?: Yes - POLST Patient has POLST: No PD ED PE NORMAL - General General: Alert and oriented X 3, No acute distress, Well developed/nourished - HEENT HEENT: Atraumatic, Moist mucous membranes, Pharynx benign - Neck Neck: Supple, no meningeal sign - Cardiac Cardiac: RRR, No murmur - Respiratory Respiratory: No respiratory distress, Clear bilaterally - Abdomen Abdomen: Soft, Non tender, Non distended - Derm Derm: Warm and dry - Neuro Neuro: Normal speech Results - Vitals Vitals: Vital Signs - 24 hr 01/20/23 01/20/23 00:21 01:00 Temperature 36.9 C Heart Rate 64 62 Respiratory 14 16 Rate Blood Pressure 115/66 129/68 O2 Saturation 100 98 Oxygen O2 Source Room air - Labs Labs: Laboratory Tests 01/20/23 01/20/23 01/20/23 00:37 01:21 01:21 WBC 8.5 RBC 4.83 Hgb 13.3 Hct 41.1 MCV 85.1 MCH 27.5 MCHC 32.4 RDW 13.3 Plt Count 257 MPV 10.3 Neut # (Auto) 5.3 Lymph # (Auto) 2.0 [place] # (Auto) 1.0 Eos # (Auto) 0.1 Baso # (Auto) 0.1 Absolute Nucleated RBC 0.00 Nucleated RBC % 0.0 Sodium 137 Potassium 3.4 L Chloride 105 Carbon Dioxide 21 Anion Gap 11.0 BUN 25 H Creatinine 0.6 Estimated GFR (MDRD) 101 Glucose 66 L Calcium 9.5 Urine Color DARK YELLOW Urine Clarity CLEAR Urine pH 5.5 Ur Specific [place] <=1.005 Urine Protein 100 H Urine Glucose (UA) 100 H Urine Ketones NEGATIVE Urine Occult Blood NEGATIVE Urine Nitrite POSITIVE H Urine Bilirubin NEGATIVE Urine Urobilinogen 1 (NORMAL) Ur Leukocyte Esterase TRACE H Urine RBC 0-5 Urine WBC 4-5 Ur Squamous Epith Cells FEW Squamous Urine Bacteria Rare Ur Microscopic Review INDICATED Urine Culture Comments INDICATED PD Medical Decision Making - ED course Complexity details: reviewed results, re-evaluated patient, d/w patient ED course: Patient is a 62-year-old female presenting for evaluation of pink-tinged to her urine. She was seen here earlier today with concerns for UTI and started on the antibiotic but has not taken the first dose. Her vital signs are stable and her abdominal exam is benign. Urinalysis is reviewed and does have findings concerning for UTI. Postvoid bladder scan it does not show retention. Patient understands the importance of taking her antibiotic. She is counseled on concerning symptoms to return for. CBC and chemistries were obtained and reviewed without significant findings. Departure - Departure Disposition: 01 Home, Self Care Clinical Impression: Urinary tract infection Condition: Stable Instructions: ED UTI Cystitis Female Comments: Your urine this evening appears to have an infection. I did give you a dose of an antibiotic and I would recommend continuing with the antibiotic prescription you were already given earlier today. This is likely the reason that you noticed an abnormal color to your urine this evening. Your labs are otherwise reassuring. Please complete the course of the antibiotics. We will notify you if you need a different antibiotic. Return to the emergency department with any worsening symptoms. Forms: PCP List Discharge Date/Time: 01/20/23 03:40
== END 2023-01-20 03:40 | disposition home or self-care (01) ==
LOC: EDUNIT# → ED 00:18
DX: N39.0 Urinary tract infection, site not specified (principal); E11.9 Type 2 diabetes mellitus without complications; Z79.4 Long term (current) use of insulin
CPT/HCPCS: 36415; 51798; 80048; 81001; 85025; 87086; 99283; A9270; 81003

== ENCOUNTER 2023-01-27 21:40 | Emergency (ER) | payer OTHER ==
[2023-01-27 22:37] LABS: BILIRUBIN,URINE NEGATIVE (NEGATIVE); CLARITY,URINE CLEAR (CLEAR); GLUCOSE, URINE (UA) 500 mg/dL (NEGATIVE); KETONES,URINE (UA) NEGATIVE (NEGATIVE); LEUKOCYTE ESTERASE, URINE NEGATIVE (NEGATIVE); NITRITE,URINE NEGATIVE (NEGATIVE); OCCULT BLOOD,URINE NEGATIVE (NEGATIVE); PROTEIN,URINE 100 mg/dL (NEGATIVE); UROBILINOGEN,URINE 0.2 (NORMAL) E.U./dL (NORMAL)
[2023-01-27 22:55] LABS: BACTERIA,URINE Rare /HPF (None Seen); RBC,URINE 0-5 /HPF (0-5); SQUAMOUS EPITHELIAL CELL,UR RARE Squamous (<= Few)
[2023-01-27 23:05] LABS: BASOPHILS # (AUTO) 0.1 10^3/uL (0.0-0.1); BASOPHILS % (AUTO) 0.6 %; EOSINOPHILS # (AUTO) 0.2 10^3/uL (0.0-0.7); EOSINOPHILS % (AUTO) 1.9 %; HCT - HEMATOCRIT 36.8 % (37.0-47.0); HGB - HEMOGLOBIN 11.8 g/dL (12.0-16.0); LYMPHOCYTES # (AUTO) 1.5 10^3/uL (1.5-3.5); MEAN CORPUSCULAR HEMOGLOBIN 27.2 pg (27.0-31.0); MEAN CORPUSCULAR HGB CONC 32.1 g/dL (32.0-36.0); MEAN CORPUSCULAR VOLUME 84.8 fL (81.0-99.0); MEAN PLATELET VOLUME 9.3 fL (7.9-10.8); MONOCYTES # (AUTO) 0.8 10^3/uL (0.0-1.0); MONOCYTES % (AUTO) 9.6 %; NEUTROPHILS # (AUTO) 5.5 10^3/uL (1.5-6.6); NEUTROPHILS % (AUTO) 68.4 %; PLT - PLATELET COUNT 236 10^3/uL (130-450); RED BLOOD COUNT 4.34 10^6/uL (4.20-5.40); RED CELL DISTRIBUTION WIDTH 13.4 % (12.0-15.0); WHITE BLOOD COUNT 8.1 x10^3/uL (4.8-10.8)
--- NOTE | 2023-01-27 23:17 | ED Physician Documentation ---
PD HPI ABD PAIN - Stated complaint Stated Complaint: - Chief complaint Chief Complaint: Abd Pain - History obtained from History obtained from: Patient - History of Present Illness Timing - details: Gradual onset Pain level max: 2 Pain level now: 0 Associated symptoms: Dysuria. No: Fever, Nausea, Vomiting, Hematemesis, Diar kristal, Constipation, Melena, Hematochezia, Hematuria, Chest pain Similar symptoms before: Has not had sx before - Additional information Additional information: 62-year-old female presents to the emergency department stating that she has urinary pressure for the past several days. Recently treated for UTI, she states that it improved but she feels like it is back. No nausea or vomiting. No diarrhea or constipation. No vaginal bleeding or discharge. No blood in the urine. 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 REAL ESTATE ASSOCIATE: Tubal ligation - Present Medications Home Medications: Ambulatory Orders Medication Instructions Recorded Confirmed Insulin Aspart (Vial) [NovoLOG 40 units SUBQ TIDWM 09/13/14 01/15/23 (VIAL FOR ED USE)] Blood Sugar Diagnostic [Glucometer 1 each BID #60 strip 09/04/19 01/14/23 Strips] Blood-Glucose Meter [Glucometer] 1 each BID #1 each 09/04/19 01/14/23 Albuterol Sulf [Ventolin Hfa 2 puffs INH Q4HR PRN 01/14/23 01/14/23 Inhaler] Latanoprost 0.005% Ophth Drops 1 drops OPTH HS 01/14/23 01/14/23 [Xalatan Ophth Drops] [place] ER [Lithobid] 300 mg PO 1700 #30 tab 01/16/23 Insulin Glargine [Lantus Solostar] 10 unit SUBQ BID #1 ea 01/17/23 Insulin Glargine [Lantus Solostar] 10 unit SUBQ BID #1 ea 01/19/23 Meloxicam [Mobic] 7.5 mg PO BID 10 Days #12 tablet 01/19/23 Phenazopyridine HCl [Pyridium] 100 mg PO TID PRN #15 tablet 01/19/23 cephALEXin [Keflex] 500 mg PO TID #18 cap 01/19/23 Phenazopyridine HCl [Pyridium] 200 mg PO TID PRN #6 tablet 01/27/23 cephALEXin [Keflex] 500 mg PO Q6H #20 cap 01/27/23 - Allergies Allergies/Adverse Reactions: Allergies Allergy/AdvReac Type Severity Reaction Status Date / Time lisinopril AdvReac Respiratory Verified 01/27/23 22:28 meperidine [From Demerol] AdvReac Dizziness Verified 01/27/23 22:28 - Social History Does the pt smoke?: No Smoking Status: Never smoker Does the pt drink ETOH?: No Does the pt have substance abuse?: No - Immunizations Immunizations are current?: Yes - POLST Patient has POLST: No PD ED PE NORMAL - Vitals Vital signs reviewed: Yes - General General: Alert and oriented X 3, No acute distress - HEENT HEENT: Moist mucous membranes - Neck Neck: Supple, no meningeal sign - Cardiac Cardiac: RRR, Strong equal pulses - Respiratory Respiratory: No respiratory distress, Clear bilaterally - Abdomen Abdomen: Soft, Non tender, Non distended - Back Back: No CVA TTP, No spinal TTP - Derm Derm: Warm and dry - Extremities Extremities: No edema, No calf tenderness / cord - Neuro Neuro: Alert and oriented X 3 - Psych Psych: Normal mood, Normal affect Results - Vitals Vitals: Vital Signs - 24 hr 01/27/23 01/27/23 21:47 22:29 Temperature 36.7 C Heart Rate 103 H Respiratory 17 18 Rate Blood Pressure 135/55 H O2 Saturation 97 Oxygen O2 Source Room air - Labs Labs: Laboratory Tests 01/27/23 01/27/23 01/27/23 22:05 23:00 23:00 WBC 8.1 RBC 4.34 Hgb 11.8 L Hct 36.8 L MCV 84.8 MCH 27.2 MCHC 32.1 RDW 13.4 Plt Count 236 MPV 9.3 Neut # (Auto) 5.5 Lymph # (Auto) 1.5 [place] # (Auto) 0.8 Eos # (Auto) 0.2 Baso # (Auto) 0.1 Absolute Nucleated RBC 0.00 Nucleated RBC % 0.0 Sodium 136 Potassium 3.4 L Chloride 104 Carbon Dioxide 26 Anion Gap 6.0 BUN 25 H Creatinine 0.6 Estimated GFR (MDRD) 101 Glucose 97 Calcium 9.2 Total Bilirubin 0.3 AST 20 ALT 26 Alkaline Phosphatase 95 Total Protein 5.9 L Albumin 3.6 Globulin 2.3 Albumin/Globulin Ratio 1.6 Lipase 59 Urine Color YELLOW Urine Clarity CLEAR Urine pH 6.0 Ur Specific [place] 1.020 Urine Protein 100 H Urine Glucose (UA) 500 H Urine Ketones NEGATIVE Urine Occult Blood NEGATIVE Urine Nitrite NEGATIVE Urine Bilirubin NEGATIVE Urine Urobilinogen 0.2 (NORMAL) Ur Leukocyte Esterase NEGATIVE Urine RBC 0-5 Urine WBC 6-10 H Ur Squamous Epith Cells RARE Squamous Urine Bacteria Rare Ur Microscopic Review INDICATED Urine Culture Comments NOT INDICATED PD Medical Decision Making - ED course Complexity details: reviewed results, re-evaluated patient, considered differential, d/w patient ED course: Patient's laboratory testing is consistent with UTI and so are her symptoms. Will place her on Keflex and Pyridium. Recommend that she follow-up closely with her PCP for further evaluation of her frequent urinary tract infections. Patient is well-appearing, nontoxic. Afebrile. No evidence of sepsis. Abdomen is soft, nontender nondistended. Bedside ultrasound does not reveal any distention of her bladder or urinary retention. Patient counseled regarding signs and symptoms for which I believe and urgent re-evaluation would be necessary. Patient with good understanding of and agreement to plan and is comfortable going home at this time This document was made in part using voice recognition software. While efforts are made to proofread this document, sound alike and grammatical errors may occur. Departure - Departure Disposition: Home, Self Care Clinical Impression: Urinary tract infection Qualifiers: Urinary tract infection type: acute cystitis Hematuria presence: without hematuria Qualified Code(s): N30.00 - Acute cystitis without hematuria Condition: Good Instructions: ED UTI Cystitis Female Follow-Up: your,doctor in 1 week [Other] Prescriptions: cephALEXin [Keflex] 500 mg PO Q6H #20 cap Phenazopyridine HCl [Pyridium] 200 mg PO TID PRN #6 tablet PRN Reason: dysuria Comments: Your prescription was sent to [facility] in [place]. Please take all antibiotics until gone. Please follow-up with your doctor for further care. It is important to follow-up closely with your doctor to discuss your frequent urinary tract infections and to look for alternative causes. Forms: PCP List
[2023-01-27 23:26] LABS: MUDS CUTOFF CONCENTRATIONS CUTOFF CONC BELOW:
[2023-01-27 23:28] LABS: ALBUMIN 3.6 g/dL (3.2-5.5); ALBUMIN/GLOBULIN RATIO 1.6 (1.0-2.2); BILIRUBIN,TOTAL 0.3 mg/dL (0.2-1.0); CALCIUM 9.2 mg/dL (8.5-10.3); CREATININE 0.6 mg/dL (0.6-1.3); POTASSIUM 3.4 mmol/L (3.5-4.5); TOTAL PROTEIN 5.9 g/dL (6.4-8.9)
[2023-01-27] MEDS ORDERED: PHENAZOPYRIDINE 100 MG TABLET PO STA (23:33)
[2023-01-27] MEDS ORDERED: cephALEXin 250 MG CAPSULE PO STA (23:33)
[2023-01-27 23:40] LABS: AMPHETAMINE SCREEN,URINE NEGATIVE (NEGATIVE); BARBITURATE SCREEN,UR NEGATIVE (NEGATIVE); BENZODIAZEPINES SCREEN, URINE NEGATIVE (NEGATIVE); COCAINE SCREEN URINE NEGATIVE (NEGATIVE); METHADONE SCREEN, URINE NEGATIVE (NEGATIVE); METHAMPHETAMINES SCREEN, URINE NEGATIVE (NEGATIVE); OPIATE SCREEN, URINE NEGATIVE (NEGATIVE); OXYCODONE SCREEN, URINE NEGATIVE (NEGATIVE); PROPOXYPHENE SCREEN, URINE NEGATIVE (NEGATIVE); THC CANNABINOID SCREEN, URINE NEGATIVE (NEGATIVE); TRICYCLIC ANTIDEPRESSANT,URINE NEGATIVE (NEGATIVE)
[2023-01-28 00:17] VITALS: BP 145/65; O2SAT 99
== END 2023-01-28 00:09 | disposition home or self-care (01) ==
LOC: ED 21:40
DX: N30.00 Acute cystitis without hematuria (principal); E11.9 Type 2 diabetes mellitus without complications; Z79.4 Long term (current) use of insulin
CPT/HCPCS: 36415; 80053; 80306; 81001; 83690; 85025; 99283; A9270; 81003; 87086

== ENCOUNTER 2023-02-08 13:35 | Emergency (ER) | payer OTHER ==
[2023-02-08 13:47] VITALS: BP 164/91; O2SAT 100
[2023-02-08 14:04] LABS: BILIRUBIN,URINE NEGATIVE (NEGATIVE); GLUCOSE, URINE (UA) >=1000 mg/dL (NEGATIVE); KETONES,URINE (UA) NEGATIVE (NEGATIVE); LEUKOCYTE ESTERASE, URINE NEGATIVE (NEGATIVE); NITRITE,URINE NEGATIVE (NEGATIVE); OCCULT BLOOD,URINE NEGATIVE (NEGATIVE); PROTEIN,URINE TRACE mg/dL (NEGATIVE); UROBILINOGEN,URINE 0.2 (NORMAL) E.U./dL (NORMAL)
--- NOTE | 2023-02-08 14:10 | ED Physician Documentation ---
PD HPI FEMALE - Stated complaint Stated Complaint: - Chief complaint Chief Complaint: UTI - History obtained from History obtained from: Patient - Additional information Additional information: 62-year-old woman with diabetes that is modestly controlled. Since about a month ago she has had frequent UTIs she thinks. The only positive urine culture she had was on January 18. Since then she has been treated repeatedly with antibiotics, but with kind of unimpressive urines and 1 with no growth. She presents with urinary pressure and frequency since last night consistent with prior UTIs. She denies fevers or flank pain. She is not wearing her CGM right now so does not know what her blood sugar is. She does always feel better when she is on antibiotics. 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: Tubal ligation - Present Medications Home Medications: Ambulatory Orders Medication Instructions Recorded Confirmed Insulin Aspart (Vial) [NovoLOG 40 units SUBQ TIDWM 09/13/14 01/15/23 (VIAL FOR ED USE)] Blood Sugar Diagnostic [Glucometer 1 each MC BID #60 strip 09/04/19 01/14/23 Strips] Blood-Glucose Meter [Glucometer] 1 each MC BID #1 each 09/04/19 01/14/23 Albuterol Sulf [Ventolin Hfa 2 puffs INH Q4HR PRN 01/14/23 01/14/23 Inhaler] Latanoprost 0.005% Ophth Drops 1 drops OPTH HS 01/14/23 01/14/23 [Xalatan Ophth Drops] [place] ER [Lithobid] 300 mg PO 1700 #30 tab 01/16/23 Insulin Glargine [Lantus Solostar] 10 unit SUBQ BID #1 ea 01/17/23 Insulin Glargine [Lantus Solostar] 10 unit SUBQ BID #1 ea 01/19/23 Meloxicam [Mobic] 7.5 mg PO BID 10 Days #12 tablet 01/19/23 Phenazopyridine HCl [Pyridium] 100 mg PO TID PRN #15 tablet 01/19/23 cephALEXin [Keflex] 500 mg PO TID #18 cap 01/19/23 Phenazopyridine HCl [Pyridium] 200 mg PO TID PRN #6 tablet 01/27/23 cephALEXin [Keflex] 500 mg PO Q6H #20 cap 01/27/23 polyethylene glycoL 3350(BULK) 17 gm PO DAILY PRN #1 each 02/08/23 [Miralax] - Allergies Allergies/Adverse Reactions: Allergies Allergy/AdvReac Type Severity Reaction Status Date / Time lisinopril AdvReac Respiratory Verified 02/08/23 13:44 meperidine [From Demerol] AdvReac Dizziness Verified 02/08/23 13:44 - Social History Does the pt smoke?: No Smoking Status: Never smoker Does the pt drink ETOH?: No Does the pt have substance abuse?: No - Immunizations Immunizations are current?: No - POLST Patient has POLST: No PD ED PE NORMAL - Vitals Vital signs reviewed: Yes - General General: Alert and oriented X 3, No acute distress - Abdomen Abdomen: Non tender - Back Back: No CVA TTP - Neuro Neuro: Alert and oriented X 3, Normal speech Results - Vitals Vitals: Vital Signs - 24 hr 02/08/23 13:40 Temperature 36.5 C Heart Rate 87 Respiratory 16 Rate Blood Pressure 164/91 H O2 Saturation 100 Oxygen O2 Source Room air - Labs Labs: Laboratory Tests 02/08/23 13:56 Urine Color YELLOW Urine Clarity CLEAR Urine pH 6.0 Ur Specific [place] <=1.005 Urine Protein TRACE Urine Glucose (UA) >=1000 H Urine Ketones NEGATIVE Urine Occult Blood NEGATIVE Urine Nitrite NEGATIVE Urine Bilirubin NEGATIVE Urine Urobilinogen 0.2 (NORMAL) Ur Leukocyte Esterase NEGATIVE Ur Microscopic Review NOT INDICATED Urine Culture Comments NOT INDICATED PD Medical Decision Making - ED course ED course: She presents for another UTI. She has been treated for this recently. Review of the chart shows only 1 positive urine culture on January 18. The subsequent urines were not clearly consistent with infection. I did review prior imaging and she seems to always have had a large stool load which may be causing some of her current symptomatology. Urine today is unremarkable except for glucose. Departure - Departure Disposition: 01 Home, Self Care Clinical Impression: Increased urinary frequency Condition: Good Record reviewed to determine appropriate education?: Yes Prescriptions: polyethylene glycoL 3350(BULK) [Miralax] 17 gm PO DAILY PRN #1 each PRN Reason: Constipation Comments: As discussed, today your urinalysis was normal with the exception of elevated glucose from poor control from diabetes. There is no UTI. I am not convinced that on the previous visits he always had a UTI and I think it would be reasonable for you to follow-up with our urologist for evaluation. I did also note that on previous visits when you had CAT scans done it seemed pretty frequent that you had constipation so I am prescribing a laxative as constipation may be causing some of your symptoms of pelvic pressure and urinary frequency noting that your uncontrolled blood sugar would also cause urinary frequency. The urologist number is on this form. Return if worse. Forms: PCP List
[2023-02-08 14:16] LABS: CLARITY,URINE CLEAR (CLEAR)
== END 2023-02-08 14:36 | disposition home or self-care (01) ==
LOC: ED 13:35
DX: R35.0 Frequency of micturition (principal); E11.9 Type 2 diabetes mellitus without complications; Z79.4 Long term (current) use of insulin
CPT/HCPCS: 81001; 81003; 87086; 99283

== ENCOUNTER 2023-02-21 04:52 | Outpatient (CLI) | payer OTHER | END 2023-02-21 23:59 | disposition critical access hospital (66) | LOC: EMS 04:52 | DX: E11.65 Type 2 diabetes mellitus with hyperglycemia (principal); R20.0 Anesthesia of skin; Z79.4 Long term (current) use of insulin | CPT/HCPCS: A0425; A0429 ==

== ENCOUNTER 2023-02-21 05:12 | Emergency (ER) | payer OTHER ==
--- NOTE | 2023-02-21 06:03 | ED Physician Documentation ---
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 - Present Medications Home Medications: Ambulatory Orders Medication Instructions Recorded Confirmed Insulin Aspart (Vial) [NovoLOG 40 units SUBQ TIDWM 09/13/14 01/15/23 (VIAL FOR ED USE)] Blood Sugar Diagnostic [Glucometer 1 each MC BID #60 strip 09/04/19 01/14/23 Strips] Blood-Glucose Meter [Glucometer] 1 each BID #1 each 09/04/19 01/14/23 Albuterol Sulf [Ventolin Hfa 2 puffs INH Q4HR PRN 01/14/23 01/14/23 Inhaler] Latanoprost 0.005% Ophth Drops 1 drops OPTH HS 01/14/23 01/14/23 [Xalatan Ophth Drops] [place] ER [Lithobid] 300 mg PO 1700 #30 tab 01/16/23 Insulin Glargine [Lantus Solostar] 10 unit SUBQ BID #1 ea 01/17/23 Insulin Glargine [Lantus Solostar] 10 unit SUBQ BID #1 ea 01/19/23 Meloxicam [Mobic] 7.5 mg PO BID 10 Days #12 tablet 01/19/23 Phenazopyridine HCl [Pyridium] 100 mg PO TID PRN #15 tablet 01/19/23 cephALEXin [Keflex] 500 mg PO TID #18 cap 01/19/23 Phenazopyridine HCl [Pyridium] 200 mg PO TID PRN #6 tablet 01/27/23 cephALEXin [Keflex] 500 mg PO Q6H #20 cap 01/27/23 polyethylene glycoL 3350(BULK) 17 gm PO DAILY PRN #1 each 02/08/23 [Miralax] - Allergies Allergies/Adverse Reactions: Allergies Allergy/AdvReac Type Severity Reaction Status Date / Time lisinopril AdvReac Respiratory Verified 02/21/23 05:33 meperidine [From Demerol] AdvReac Dizziness Verified 02/21/23 05:33 - Social History Does the pt smoke?: No Smoking Status: Never smoker Does the pt drink ETOH?: No Does the pt have substance abuse?: No - Immunizations Immunizations are current?: No - POLST Patient has POLST: No Results - Vitals Vitals: Vital Signs - 24 hr 02/21/23 05:31 Temperature 36.5 C Heart Rate 77 Respiratory 15 Rate Blood Pressure 140/67 H O2 Saturation 97 Oxygen O2 Source Room air Departure - Departure
[2023-02-21 06:28] LABS: BILIRUBIN,URINE NEGATIVE (NEGATIVE); GLUCOSE, URINE (UA) >=1000 mg/dL (NEGATIVE); KETONES,URINE (UA) NEGATIVE (NEGATIVE); LEUKOCYTE ESTERASE, URINE NEGATIVE (NEGATIVE); NITRITE,URINE NEGATIVE (NEGATIVE); OCCULT BLOOD,URINE NEGATIVE (NEGATIVE); PROTEIN,URINE 30 mg/dL (NEGATIVE); UROBILINOGEN,URINE 0.2 (NORMAL) E.U./dL (NORMAL)
[2023-02-21 06:44] LABS: CLARITY,URINE CLEAR (CLEAR)
[2023-02-21 06:51] LABS: BASOPHILS % (AUTO) 0.6 %; EOSINOPHILS # (AUTO) 0.1 10^3/uL (0.0-0.7); EOSINOPHILS % (AUTO) 1.2 %; HCT - HEMATOCRIT 39.2 % (37.0-47.0); HGB - HEMOGLOBIN 12.7 g/dL (12.0-16.0); LYMPHOCYTES # (AUTO) 0.6 10^3/uL (1.5-3.5); LYMPHOCYTES % (AUTO) 12.6 %; MEAN CORPUSCULAR HEMOGLOBIN 27.5 pg (27.0-31.0); MEAN CORPUSCULAR HGB CONC 32.4 g/dL (32.0-36.0); MEAN PLATELET VOLUME 10.1 fL (7.9-10.8); MONOCYTES # (AUTO) 0.4 10^3/uL (0.0-1.0); MONOCYTES % (AUTO) 7.6 %; NEUTROPHILS # (AUTO) 3.9 10^3/uL (1.5-6.6); NEUTROPHILS % (AUTO) 77.6 %; PLT - PLATELET COUNT 181 10^3/uL (130-450); RED BLOOD COUNT 4.61 10^6/uL (4.20-5.40); RED CELL DISTRIBUTION WIDTH 14.1 % (12.0-15.0)
[2023-02-21 06:55] LABS: KETONES, SERUM (ACETEST) NEGATIVE (NEGATIVE)
[2023-02-21 07:01] LABS: ALBUMIN 3.6 g/dL (3.2-5.5); ALBUMIN/GLOBULIN RATIO 1.5 (1.0-2.2); ALKALINE PHOSPHATASE 104 IU/L (42-121); ALT ALANINE AMINOTRANSFERASE 20 IU/L (10-60); AST ASPARTATE AMINOTRANSFERASE 13 IU/L (10-42); BILIRUBIN,TOTAL 0.2 mg/dL (0.2-1.0); BUN - BLOOD UREA NITROGEN 23 mg/dL (6-20); CALCIUM 8.7 mg/dL (8.5-10.3); CARBON DIOXIDE - CO2 23 mmol/L (21-32); CHLORIDE 109 mmol/L (101-111); CREATININE 0.5 mg/dL (0.6-1.3); GFR - MDRD 124 (>89); GLUCOSE 313 mg/dL (74-104); LIPASE 60 U/L (11-82); POTASSIUM 4.2 mmol/L (3.5-4.5); SODIUM 137 mmol/L (135-145)
[2023-02-21 07:02] LABS: BACTERIA,URINE Rare /HPF (None Seen); RBC,URINE None Seen /HPF (0-5); SQUAMOUS EPITHELIAL CELL,UR RARE Squamous (<= Few); WBC,URINE 0-3 /HPF (0-5)
--- NOTE | 2023-02-21 07:39 | ED Physician Documentation ---
History of Present Illness - Stated complaint Stated Complaint: LEFT ARM NUMBNESS - Chief complaint Chief Complaint: Abd Pain - Additonal information Additional information: Patient 62-year-old female presenting to the emergency department with chief complaint left arm numbness. Approximately 4 and half hours ago began experiencing acute left arm numbness. No associated weakness, facial droop, speech difficulties. Reports had similar symptoms somewhat in the past associated with carpal tunnel however does report that this feels significantly different. Denies any previous episodes of strokelike symptoms. Endorses prior history of hypertension, dyslipidemia, diabetes bipolar disorder. Reports that she has chronic pruritus secondary to her diabetes. Also reports history of memory difficulties and asks whether or not we are c apable of testing her for "dementia" in the emergency department. Denies chest pain, shortness of breath, abdominal pain, nausea, vomiting, diarrhea, constipation. Review of Systems Constitutional: denies: Fever Eyes: denies: Loss of vision Ears: denies: Loss of hearing Nose: denies: Rhinorrhea / runny nose Throat: denies: Dental pain / toothache Cardiac: denies: Chest pain / pressure Respiratory: denies: Dyspnea GI: denies: Abdominal Pain : denies: Dysuria Skin: denies: Rash Musculoskeletal: denies: Neck pain Neurologic: reports: Generalized weakness, Numbness Psychiatric: denies: Depressed PD PAST MEDICAL HISTORY - Past Medical History Past Medical History: Yes Cardiovascular: High cholesterol Respiratory: None Neuro: None Endocrine/Autoimmune: Type 2 diabetes GI: GERD EXAM PROCTOR: None : None HEENT: None Psych: Bipolar disorder Musculoskeletal: None Derm: None - Past Surgical History Past Surgical History: Yes /EXAM PROCTOR: Tubal ligation - Present Medications Home Medications: Ambulatory Orders Medication Instructions Recorded Confirmed Insulin Aspart (Vial) [NovoLOG 40 units SUBQ TIDWM 09/13/14 01/15/23 (VIAL FOR ED USE)] Blood Sugar Diagnostic [Glucometer 1 each BID #60 strip 09/04/19 01/14/23 Strips] Blood-Glucose Meter [Glucometer] 1 each BID #1 each 09/04/19 01/14/23 Albuterol Sulf [Ventolin Hfa 2 puffs INH Q4HR PRN 01/14/23 01/14/23 Inhaler] Latanoprost 0.005% Ophth Drops 1 drops OPTH HS 01/14/23 01/14/23 [Xalatan Ophth Drops] [place] ER [Lithobid] 300 mg PO 1700 #30 tab 01/16/23 Insulin Glargine [Lantus Solostar] 10 unit SUBQ BID #1 ea 01/17/23 Insulin Glargine [Lantus Solostar] 10 unit SUBQ BID #1 ea 01/19/23 Meloxicam [Mobic] 7.5 mg PO BID 10 Days #12 tablet 01/19/23 Phenazopyridine HCl [Pyridium] 100 mg PO TID PRN #15 tablet 01/19/23 cephALEXin [Keflex] 500 mg PO TID #18 cap 01/19/23 Phenazopyridine HCl [Pyridium] 200 mg PO TID PRN #6 tablet 01/27/23 cephALEXin [Keflex] 500 mg PO Q6H #20 cap 01/27/23 polyethylene glycoL 3350(BULK) 17 gm PO DAILY PRN #1 each 02/08/23 [Miralax] - Allergies Allergies/Adverse Reactions: Allergies Allergy/AdvReac Type Severity Reaction Status Date / Time lisinopril AdvReac Respiratory Verified 02/21/23 05:33 meperidine [From Demerol] AdvReac Dizziness Verified 02/21/23 05:33 - Social History Does the pt smoke?: No Smoking Status: Never smoker Does the pt drink ETOH?: No Does the pt have substance abuse?: No - Immunizations Immunizations are current?: No - POLST Patient has POLST: No Results - Vitals Vitals: Vital Signs - 24 hr 02/21/23 05:31 Temperature 36.5 C Heart Rate 77 Respiratory 15 Rate Blood Pressure 140/67 H O2 Saturation 97 Oxygen O2 Source Room air - EKG (time done) 0651 EKG releavant findings:: EKG personally interpreted by author of this note. Relevant findings are: Sinus rhythm with rate 77 bpm. Left axis deviation. Normal [place], QRS, QTc intervals. No ST segment elevations or T wave inversions. - Labs Labs: Laboratory Tests 02/21/23 02/21/23 02/21/23 06:10 06:36 06:36 WBC 5.0 RBC 4.61 Hgb 12.7 Hct 39.2 MCV 85.0 MCH 27.5 MCHC 32.4 RDW 14.1 Plt Count 181 MPV 10.1 Neut # (Auto) 3.9 Lymph # (Auto) 0.6 L [place] # (Auto) 0.4 Eos # (Auto) 0.1 Baso # (Auto) 0.0 Absolute Nucleated RBC 0.00 Nucleated RBC % 0.0 Sodium 137 Potassium 4.2 Chloride 109 Carbon Dioxide 23 Anion Gap 5.0 L BUN 23 H Creatinine 0.5 L Estimated GFR (MDRD) 124 Glucose 313 H Calcium 8.7 Total Bilirubin 0.2 AST 13 ALT 20 Alkaline Phosphatase 104 Total Protein 6.0 L Albumin 3.6 Globulin 2.4 Albumin/Globulin Ratio 1.5 Lipase 60 Urine Color YELLOW Urine Clarity CLEAR Urine pH 6.0 Ur Specific [place] 1.015 Urine Protein 30 H Urine Glucose (UA) >=1000 H Urine Ketones NEGATIVE Urine Occult Blood NEGATIVE Urine Nitrite NEGATIVE Urine Bilirubin NEGATIVE Urine Urobilinogen 0.2 (NORMAL) Ur Leukocyte Esterase NEGATIVE Urine RBC None Seen Urine WBC 0-3 Ur Squamous Epith Cells RARE Squamous Urine Bacteria Rare Ur Microscopic Review INDICATED Urine Culture Comments NOT INDICATED Serum Ketones NEGATIVE PD Medical Decision Making - ED course Complexity details: reviewed old records, reviewed results, re-evaluated patient, d/w patient ED course: Patient 62-year-old female with known history of poorly controlled diabetes, dyslipidemia presenting to the emergency department with left arm numbness. Afebrile, hemodynamically stable on arrival to the emergency department. With the exception of left arm numbness that involves the entirety of the left forearm and hand there is no notable neurologic deficit. Patient arrived outside the window for tPA or aggressive intervention. 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 Remainder of patient's tests including EKG and lab work generally reassuring. On reevaluation patient continued to endorse for left arm numbness without improvement. Repeat reevaluation did not demonstrate any new or developing neurologic defici t. Patient was offered hospitalization and transfer to facility capable of performing MRI/echocardiogram as needed. However patient adamant that she did not wish to be admitted to the hospital at this time. Reported that she intends to "self check-in to [facility] emergency room on the " after the hol. loss of opportunity to treat discussed risks and benefits of this. This conversation included the risk for a recurrent, worsening or more severe stroke with possibility of disability/ discussed. Patient verbalized understanding of these risks. Nevertheless requested discharge from the emergency department. Reiterated that she was not interested in hospitalization at this time. Demonstrated decisional capacity. Was encouraged to return promptly for new or worsening symptoms. Departure - Departure Disposition: Home, Self Care Clinical Impression: Arm numbness left Comments: Thank you for allowing us to care for you today at [facility]. Today in the emergency department you were evaluated for any possible dangerous or life-threatening medical emergency. I know we discussed the many possible causes for your left arm numbness including the possibility of mild stroke. The imaging performed in the emergency department today did not show any indications of stroke although did show some narrowing among your intracranial blood vessels as well as an incidentally noted 3 mm aneurysm in your left intervertebral artery. I know we discussed the possibility of hospitalization versus transfer for further testing and at this time you have declined this intervention. It is extremely important however that you follow-up with your primary care doctor soon as possible concerning the above findings as well as the symptoms you presented to the emergency department with. If you develop new or worsening symptoms such as weakness, worsening numbness, facial droop, difficulties with speech or balance problems it is important that you call 911 and return to the emergency department immediately. Forms: PCP List
[2023-02-21] MEDS ORDERED: SODIUM CHLORIDE 0.9% 1,000 ML IV STA (08:01)
--- NOTE | 2023-02-21 10:35 | CT Report ---
PROCEDURE: CT Angio Head/Neck INDICATIONS: Left arm numbness TECHNIQUE: CT axial images were obtained of the head and neck with IV contrast. Multiplanar reformats and maximum intensity projections were obtained. COMPARISON: None. FINDINGS: Please note noncontrast head CT comparison none available. Mild motion artifact Head angiography Anterior circulation: ICAs: Mild to moderate bilateral cavernous and supraclinoid carotid calcifications Moderate focal narrowing of the left supraclinoid segment. 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 Focal 3 mm an eurysm is seen. Basilar artery: Mild focal narrowing in the mid basilar PComms: Suspected infundibulum the right posterior communicating artery sales order processor: normal and symmetric Neck angiography Aortic arch and subclavian arteries: normal flow CCAs: no stenosis, occlusion, or aneurysm. ICA origins (by NASCET criteria): Mild bilateral calcifications without significant narrowing ICAs: no stenosis, occlusion or aneurysm. ECAs: origins are patent. Vertebral arteries: unremarkable Soft tissues: no significant mass, aneurysm, or lymphadenopathy Lung apices: no pneumothorax Bones: There are degenerative changes. No acute or suspicious finding. IMPRESSION: No large vessel occlusion. Multiple areas of narrowing, including in the intracranial vessels, for ex ample with moderate narrowing of the left supraclinoid ICA and left intracranial vertebral artery. Th ere is a 3 mm aneurysm in the left intracranial vertebral artery. Other findings as above. If there is high concern for infarct, consider MRI. Please note there is currently no noncontrast hea d CT available for comparison. Reviewed by: Jian Suarez MD on 02/21/2023 10:34 AM PST Approved by: Jian Suarez MD on 02/21/2023 10:34 AM PST Station ID: [id number]
[2023-02-21] MEDS ORDERED: iohexoL-300 100 ML VIAL IVP ONE (10:53)
[2023-02-21 10:54] VITALS: BP 165/77; O2SAT 100
== END 2023-02-21 11:49 | disposition home or self-care (01) ==
LOC: EDUNIT# → ED 05:12
DX: R20.0 Anesthesia of skin (principal); E78.00 Pure hypercholesterolemia, unspecified; I10 Essential (primary) hypertension; E11.9 Type 2 diabetes mellitus without complications; Z79.4 Long term (current) use of insulin; Z79.899 Other long term (current) drug therapy
CPT/HCPCS: 36415; 70496; 70498; 80053; 81001; 82009; 83690; 85025; 93005; 99283; 99284; Q9967; 81003; 87086

== ENCOUNTER 2023-04-30 14:20 | Outpatient (CLI) | payer MEDICARE, OTHER ==
--- NOTE | 2023-04-30 17:27 | XRAY Report ---
PROCEDURE: Cervical Spine 2-3V INDICATIONS: OTH SYMPTOMS AND SIGNS INVOLVING THE MUSCULOSKELET TECHNIQUE: 4 view(s) of the cervical spine were acquired. COMPARISON: None. FINDINGS: Bones: No fractures or dislocations to the T1 level. There is reversal of normal cervical lordosis. Degenerative endplate changes, loss of disc height and bilateral facet hypertrophic changes are noted throughout mid to lower cervical spine at C4-5 through C6-7 levels. The lateral masses of C1 appear intact on the odontoid view. No suspicious bony lesions. Soft tissues: No prevertebral soft tissue swelling. IMPRESSION: No displaced fracture or traumatic subluxation. Degenerative disc disease throughout mid to lower cervical spine as above. Reviewed by: Diaz Hooks MD on 04/30/2023 5:25 PM PST Approved by: Diaz Hooks MD on 04/30/2023 5:25 PM PST Station ID: [id number]
== END 2023-04-30 14:21 | disposition home or self-care (01) ==
LOC: DI.N 14:20
PROVIDERS: ATTEND Student in an Organized Health Care Education/Training Program
DX: R29.898 Other symptoms and signs involving the musculoskeletal system (principal); M50.321 Other cervical disc degeneration at C4-C5 level

== ENCOUNTER 2023-05-02 14:43 | Emergency (ER) | payer MEDICARE, OTHER ==
--- NOTE | 2023-05-02 16:04 | ED Physician Documentation ---
PD HPI BACK PAIN - Stated complaint Stated Complaint: BACK PX/ITCHY - Chief complaint Chief Complaint: Back Pain - History obtained from History obtained from: Patient - History of Present Illness Timing - onset: How many days ago (3) Timing - duration: Days (3) Timing - details: Gradual onset, Still present Location: Lower Quality: Pain, Spasm, Sharp, Similar to prior episodes Associated symptoms: Other (urinary frequency and itching of the skin). No: Fever, Weakness, Numbness, Incontinent of urine, Unable to urinate, Hematuria, Incontinent of stool Improves with: Rest, Position, Meds Worsened by: Movement Similar symptoms before: Diagnosis (back pain and puritis) Recently seen: Not recently seen - Additional information Additional information: Maribeth Haynes is a 63-year-old female with a history of diabetes and a recent TIA. She has been noncompliant with testing of her diabetes with a monitor she could not get to work correctly. She does use insulin. She is getting up multiple times at night to urinate. She does not drink water she drinks diet coke. She is complaining today of back pain and excessive itching. She has had itching from dry skin for years she usually uses Benadryl she had a uncomfortable night last night and has back pain at a 6 out of 10. When she came to the emergency department her biggest concern was the itching. 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 : None HEENT: None Psych: Bipolar disorder Musculoskeletal: None Derm: None - Past Surgical History Past Surgical History: Yes /ELECTRIFIER OPERATOR: Tubal ligation - Present Medications Home Medications: Ambulatory Orders Medication Instructions Recorded Confirmed Insulin Aspart (Vial) [NovoLOG 40 units SUBQ TIDWM 09/13/14 01/15/23 (VIAL FOR ED USE)] Blood Sugar Diagnostic [Glucometer 1 each BID #60 strip 09/04/19 01/14/23 Strips] Blood-Glucose Meter [Glucometer] 1 each BID #1 each 09/04/19 01/14/23 Albuterol Sulf [Ventolin Hfa 2 puffs INH Q4HR PRN 01/14/23 01/14/23 Inhaler] Latanoprost 0.005% Ophth Drops 1 drops OPTH HS 01/14/23 01/14/23 [Xalatan Ophth Drops] [place] ER [Lithobid] 300 mg PO 1700 #30 tab 01/16/23 Insulin Glargine [Lantus Solostar] 10 unit SUBQ BID #1 ea 01/17/23 Insulin Glargine [Lantus Solostar] 10 unit SUBQ BID #1 ea 01/19/23 Meloxicam [Mobic] 7.5 mg PO BID 10 Days #12 tablet 01/19/23 Phenazopyridine HCl [Pyridium] 100 mg PO TID PRN #15 tablet 01/19/23 cephALEXin [Keflex] 500 mg PO TID #18 cap 01/19/23 Phenazopyridine HCl [Pyridium] 200 mg PO TID PRN #6 tablet 01/27/23 cephALEXin [Keflex] 500 mg PO Q6H #20 cap 01/27/23 polyethylene glycoL 3350(BULK) 17 gm PO DAILY PRN #1 each 02/08/23 [Miralax] hydrOXYzine pamoate [Hydroxyzine 25 - 50 mg PO Q6HR PRN #20 cap 05/02/23 Pamoate] - Allergies Allergies/Adverse Reactions: Allergies Allergy/AdvReac Type Severity Reaction Status Date / Time lisinopril AdvReac Respiratory Verified 02/21/23 05:33 meperidine [From Demerol] AdvReac Dizziness Verified 02/21/23 05:33 - Social History Does the pt smoke?: No Smoking Status: Never smoker Does the pt drink ETOH?: No Does the pt have substance abuse?: No - Immunizations Immunizations are current?: No - POLST Patient has POLST: No PD ED PE NORMAL - Vitals Vital signs reviewed: Yes (hypertensive with wide pulse presssure ) - General General: Alert and oriented X 3, No acute distress, Well developed/nourished - HEENT HEENT: Atraumatic, PERRL, EOMI, Other (dry mucous membranes ) - Neck Neck: Supple, no meningeal sign, No bony TTP - Cardiac Cardiac: RRR, No murmur - Respiratory Respiratory: No respiratory distress, Clear bilaterally - Abdomen Abdomen: Soft, Non tender - Back Back: No CVA TTP, Other (paraspinous tenderness is mild with firm muscles to the L2/3 region. ) - Derm Derm: Normal color, Warm and dry, No rash - Extremities Extremities: No deformity, No edema - Neuro Neuro: Alert and oriented X 3, shake out worker 2-12 intact, No motor deficit, No sensory deficit, Normal speech Eye Opening: Spontaneous Motor: Obeys Commands Verbal: Oriented GCS Score: 15 - Psych Psych: Normal mood, Normal affect Results - Vitals Vitals: Vital Signs - 24 hr 05/02/23 05/02/23 15:07 18:01 Temperature 36.3 C L Heart Rate 78 83 Respiratory 16 14 Rate Blood Pressure 154/66 H 152/74 H O2 Saturation 99 97 Oxygen O2 Source Room air - Labs Labs: Laboratory Tests 05/02/23 05/02/23 05/02/23 16:30 16:30 18:30 WBC 5.0 RBC 4.86 Hgb 13.2 Hct 39.6 MCV 81.5 MCH 27.2 MCHC 33.3 RDW 13.2 Plt Count 177 MPV 10.0 Neut # (Auto) 3.5 Lymph # (Auto) 0.9 L [place] # (Auto) 0.4 Eos # (Auto) 0.1 Baso # (Auto) 0.0 Absolute Nucleated RBC 0.00 Nucleated RBC % 0.0 Sodium 133 L Potassium 3.9 Chloride 102 Carbon Dioxide 26 Anion Gap 5.0 L BUN 20 Creatinine 0.6 Estimated GFR (MDRD) 100 Glucose 436 H POC Whole Bld Glucose Calcium 9.1 Total Bilirubin 0.3 AST 10 ALT 14 Alkaline Phosphatase 125 H Total Protein 6.2 L Albumin 3.7 Globulin 2.5 Albumin/Globulin Ratio 1.5 Lipase 68 Urine Color LIGHT YELLOW Urine Clarity CLEAR Urine pH 6.0 Ur Specific [place] 1.015 Urine Protein TRACE Urine Glucose (UA) >=1000 H Urine Ketones NEGATIVE Urine Occult Blood NEGATIVE Urine Nitrite NEGATIVE Urine Bilirubin NEGATIVE Urine Urobilinogen 0.2 (NORMAL) Ur Leukocyte Esterase NEGATIVE Ur Microscopic Review NOT INDICATED Urine Culture Comments NOT INDICATED 05/02/23 05/02/23 18:37 18:43 WBC RBC Hgb Hct MCV MCH MCHC RDW Plt Count MPV Neut # (Auto) Lymph # (Auto) [place] # (Auto) Eos # (Auto) Baso # (Auto) Absolute Nucleated RBC Nucleated RBC % Sodium Potassium Chloride Carbon Dioxide Anion Gap BUN Creatinine Estimated GFR (MDRD) Glucose POC Whole Bld Glucose 84 85 Calcium Total Bilirubin AST ALT Alkaline Phosphatase Total Protein Albumin Globulin Albumin/Globulin Ratio Lipase Urine Color Urine Clarity Urine pH Ur Specific [place] Urine Protein Urine Glucose (UA) Urine Ketones Urine Occult Blood Urine Nitrite Urine Bilirubin Urine Urobilinogen Ur Leukocyte Esterase Ur Microscopic Review Urine Culture Comments Procedures - IVC sono (time) 1555 Bedside IVC sono: IVC measures (cm) (0.87), IVC collapsed c insp (cm) (complete), Dehydration (est 2 lter deficit.) PD Medical Decision Making - ED course Complexity details: reviewed old records, reviewed results, re-evaluated patient, considered differential, d/w patient Reviewed Lab Results: We reviewed a complete blood count showing a normal white blood cell count normal hemoglobin hematocrit and platelets chemistries showed a serum sodium low at 133 normal BUN and creatinine glucose markedly elevated at 436. Alkaline phosphatase mildly elevated 125. I interpreted these test to indicate diabetes [id number].They correspond to the level of dehydration found on interrogation of the inferior vena cava with POCUS. ED course: 63-year-old female presents to the emergency department with chief complaint of itching and back pain and she is found to have diabetes [id number]. She relates that she had previously been using insulin for some time without ever injecting the insulin into her self. She has a glucose meter at home which she is unable to use. She has a referral into diabetic education and this has not come through yet. Today we are providing her with some IV hydration and some IV insulin. The patient does have insulin at home and further treatment at home is indicated. We treated her itching with hydroxyzine and Valium. At the conclusion of treatment her blood glucose was 85. This was lower than I anticipated and likely means she has not been taking her insulin and she responded well to IV insulin. I have asked her to go through diabetic education and we have e-cribed some hydroxizine to the pharmacy. [place] much improved at discharge. Departure - Departure Disposition: 01 Home, Self Care Clinical Impression: Dehydration, Generalized pruritus Back pain Qualifiers: Back pain location: low back pain Chronicity: acute Back pain laterality: bilateral Sciatica presence: without sciatica Qualified Code(s): M54.50 - Low back pain, unspecified Diabetes mellitus out of control Qualifiers: Diabetes mellitus type: type 2 Glycemic state: with hyperglycemia Qualified Code(s): E11.65 - Type 2 diabetes mellitus with hyperglycemia Condition: Stable Instructions: ED Spasm Back No Trauma, ED Diabetes General Info, ED Hyperglycemia Diabetic, ED Dehydration, ED Injection Pen Using Follow-Up: TORI RHODES PA [Primary Care Provider] - Prescriptions: hydrOXYzine pamoate [Hydroxyzine Pamoate] 25 - 50 mg PO Q6HR PRN #20 cap PRN Reason: Itching Comments: Maribeth, today we found that your diabetes was out of control resulting in dehydration, worsening itching and worsening back pain. My recommendation today is to follow-up with your doctor about diabetic education. I have e-scribed some Hydroxyzine to the [facility] in [place]
[2023-05-02] MEDS: SODIUM CHLORIDE 0.9% 1,000 ML IV STA (16:38)
[2023-05-02] MEDS: hydrOXYzine PAMOATE 25 MG CAPSULE PO STA (16:38)
[2023-05-02] MEDS: KETOROLAC 30 MG/ML VIAL IVP STA (16:38)
[2023-05-02 16:44] LABS: BASOPHILS % (AUTO) 0.8 %; EOSINOPHILS # (AUTO) 0.1 10^3/uL (0.0-0.7); EOSINOPHILS % (AUTO) 2.6 %; HCT - HEMATOCRIT 39.6 % (37.0-47.0); HGB - HEMOGLOBIN 13.2 g/dL (12.0-16.0); LYMPHOCYTES # (AUTO) 0.9 10^3/uL (1.5-3.5); LYMPHOCYTES % (AUTO) 18.7 %; MEAN CORPUSCULAR HEMOGLOBIN 27.2 pg (27.0-31.0); MEAN CORPUSCULAR HGB CONC 33.3 g/dL (32.0-36.0); MEAN CORPUSCULAR VOLUME 81.5 fL (81.0-99.0); MONOCYTES # (AUTO) 0.4 10^3/uL (0.0-1.0); MONOCYTES % (AUTO) 7.8 %; NEUTROPHILS # (AUTO) 3.5 10^3/uL (1.5-6.6); NEUTROPHILS % (AUTO) 69.9 %; PLT - PLATELET COUNT 177 10^3/uL (130-450); RED BLOOD COUNT 4.86 10^6/uL (4.20-5.40); RED CELL DISTRIBUTION WIDTH 13.2 % (12.0-15.0)
[2023-05-02 17:02] LABS: ALBUMIN 3.7 g/dL (3.2-5.5); ALBUMIN/GLOBULIN RATIO 1.5 (1.0-2.2); BILIRUBIN,TOTAL 0.3 mg/dL (0.2-1.0); CALCIUM 9.1 mg/dL (8.5-10.3); CREATININE 0.6 mg/dL (0.6-1.3); POTASSIUM 3.9 mmol/L (3.5-4.5); TOTAL PROTEIN 6.2 g/dL (6.4-8.9)
[2023-05-02] MEDS: INSULIN REGULAR HUMAN 300 UNIT/3 ML VIAL IVP STA (17:17)
[2023-05-02] MEDS: diazePAM INJ 5 MG/ML SYRINGE IVP STA (17:48)
[2023-05-02 18:47] LABS: BILIRUBIN,URINE NEGATIVE (NEGATIVE); GLUCOSE, URINE (UA) >=1000 mg/dL (NEGATIVE); KETONES,URINE (UA) NEGATIVE (NEGATIVE); LEUKOCYTE ESTERASE, URINE NEGATIVE (NEGATIVE); NITRITE,URINE NEGATIVE (NEGATIVE); OCCULT BLOOD,URINE NEGATIVE (NEGATIVE); PROTEIN,URINE TRACE mg/dL (NEGATIVE); UROBILINOGEN,URINE 0.2 (NORMAL) E.U./dL (NORMAL)
[2023-05-02 18:49] LABS: CLARITY,URINE CLEAR (CLEAR)
[2023-05-02 19:00] VITALS: BP 150/114; O2SAT 100
== END 2023-05-02 18:54 | disposition home or self-care (01) ==
LOC: ED 14:43
DX: E11.65 Type 2 diabetes mellitus with hyperglycemia (principal); L29.9 Pruritus, unspecified; E86.0 Dehydration; M54.50 Low back pain, unspecified; E78.00 Pure hypercholesterolemia, unspecified; Z79.4 Long term (current) use of insulin; Z79.899 Other long term (current) drug therapy
CPT/HCPCS: 36415; 80053; 81003; 83690; 85025; 96361; 96374; 96375; 99283; 99284; A9270; J1815; 81001; 87086

== ENCOUNTER 2023-05-27 23:22 | Outpatient (CLI) | payer MEDICARE, OTHER | END 2023-05-27 23:59 | disposition EMS.NT | LOC: EMS 23:22 | DX: R45.89 Other symptoms and signs involving emotional state (principal) ==

== ENCOUNTER 2023-05-28 07:34 | Outpatient (CLI) | payer MEDICARE, OTHER | END 2023-05-28 23:59 | disposition critical access hospital (66) | LOC: EMS 07:34 | DX: E11.65 Type 2 diabetes mellitus with hyperglycemia (principal); F41.9 Anxiety disorder, unspecified; R41.0 Disorientation, unspecified; R05.9 Cough, unspecified; Z79.4 Long term (current) use of insulin | CPT/HCPCS: A0425; A0429 ==

== ENCOUNTER 2023-05-28 07:59 | Observation (INO) | payer MEDICARE, OTHER ==
--- NOTE | 2023-05-28 08:16 | ED Physician Documentation ---
PD HPI ALTERED MENTAL STATUS - Stated complaint Stated Complaint: DIABETIC COMPLAINT - Chief complaint Chief Complaint: General - History obtained from History obtained from: Patient PD PAST MEDICAL HISTORY - Past Medical History Cardiovascular: High cholesterol Respiratory: None Neuro: None Endocrine/Autoimmune: Type 2 diabetes GI: GERD CONTROL SYSTEMS DEVELOPER: None : None HEENT: None Psych: Bipolar disorder Musculoskeletal: None Derm: None - Past Surgical History Past Surgical History: Yes /CONTROL SYSTEMS DEVELOPER: Tubal ligation - Present Medications Home Medications: Ambulatory Orders Medication Instructions Recorded Confirmed Latanoprost 0.005% Ophth Drops 1 drops EACHEYE HS 01/14/23 05/28/23 [Xalatan Ophth Drops] [place] [facility] [Lithobid] 300 mg PO 1700 #30 tab 01/16/23 05/28/23 Insulin Glargine [Lantus Solostar] 10 unit SUBQ BID #1 ea 01/19/23 05/28/23 hydrOXYzine pamoate [Hydroxyzine 25 - 50 mg PO Q6HR PRN #20 cap 05/02/23 05/28/23 Pamoate] Eszopiclone [Lunesta] 2 mg PO HS 05/28/23 05/28/23 Ketorolac 0.45% Ophth Drops 1 drops EACHEYE QID 05/28/23 05/28/23 [Acuvail] Pregabalin 50 mg PO BID PRN 05/28/23 05/28/23 Ziprasidone [Geodon] 20 mg PO BID 05/28/23 05/28/23 - Allergies Allergies/Adverse Reactions: Allergies Allergy/AdvReac Type Severity Reaction Status Date / Time lisinopril AdvReac Respiratory Verified 05/28/23 08:15 meperidine [From Demerol] AdvReac Dizziness Verified 05/28/23 08:15 - Social History Does the pt smoke?: No Smoking Status: Never smoker Does the pt drink ETOH?: No Does the pt have substance abuse?: No - Immunizations Immunizations are current?: No - POLST Patient has POLST: No Results - Vitals Vitals: Vital Signs - 24 hr 05/28/23 05/28/23 08:04 10:13 Temperature 36.5 C Heart Rate 80 72 Respiratory 20 16 Rate Blood Pressure 144/64 H 162/68 H O2 Saturation 99 100 Oxygen O2 Source Room air - EKG (time done) 08:40 EKG releavant findings:: EKG personally interpreted by author of this note. Relevant findings are: Rate: Rate (enter#) (46) Rhythm: Sinus bradycardia, Other (PVCs) Bridger: Normal Ischemia: Normal ST segments. No: ST elevation c/w ischemia, ST depression Other comments: Other comments (bradycardic when blood sugar was low, monitor showing HR 60-80 when blood sugar was corrected with IV suplements. ) - Labs Labs: Laboratory Tests 05/28/23 05/28/23 05/28/23 08:09 08:45 08:52 WBC RBC Hgb Hct MCV MCH MCHC RDW Plt Count MPV Neut # (Auto) Lymph # (Auto) [place] # (Auto) Eos # (Auto) Baso # (Auto) Absolute Nucleated RBC Nucleated RBC % Sodium Potassium Chloride Carbon Dioxide Anion Gap BUN Creatinine Estimated GFR (MDRD) Glucose POC Whole Bld Glucose 74 33 L* Calcium Magnesium Total Bilirubin AST ALT Alkaline Phosphatase Total Protein Albumin Globulin Albumin/Globulin Ratio Lipase Nasal Adenovirus (PCR) NOT DETECTED Nasal B. parapertussis DNA (PCR) NOT DETECTED Nasal Coronavir 229E PCR NOT DETECTED Nasal Coronavir HKU1 PCR NOT DETECTED Nasal Coronavir NL63 PCR NOT DETECTED Nasal Coronavir OC43 PCR NOT DETECTED Nasal Enterovir/Rhinovir PCR NOT DETECTED Nasal Influenza B PCR NOT DETECTED Nasal Influenza A PCR NOT DETECTED Nasal Parainfluen 1 PCR NOT DETECTED Nasal Parainfluen 2 PCR NOT DETECTED Nasal Parainfluen 3 PCR NOT DETECTED Nasal Parainfluen 4 PCR NOT DETECTED Nasal RSV (PCR) NOT DETECTED Nasal B.pertussis DNA PCR NOT DETECTED Nasal C.pneumoniae (PCR) NOT DETECTED Roger Human Metapneumo PCR NOT DETECTED Nasal M.pneumoniae (PCR) NOT DETECTED Nasal SARS-CoV-2 (PCR) NOT DETECTED 05/28/23 05/28/23 05/28/23 08:55 08:55 09:28 WBC 7.5 RBC 5.13 Hgb 13.8 Hct 43.4 MCV 84.6 MCH 26.9 L MCHC 31.8 L RDW 13.6 Plt Count 236 MPV 10.2 Neut # (Auto) 5.0 Lymph # (Auto) 1.6 [place] # (Auto) 0.7 Eos # (Auto) 0.2 Baso # (Auto) 0.1 Absolute Nucleated RBC 0.00 Nucleated RBC % 0.0 Sodium 139 Potassium 3.6 Chloride 108 Carbon Dioxide 26 Anion Gap 5.0 L BUN 22 H Creatinine 0.6 Estimated GFR (MDRD) 100 Glucose 43 L* POC Whole Bld Glucose 146 H Calcium 9.7 Magnesium 2.0 Total Bilirubin 0.3 AST 14 ALT 14 Alkaline Phosphatase 107 Total Protein 6.2 L Albumin 3.7 Globulin 2.5 Albumin/Globulin Ratio 1.5 Lipase 51 Nasal Adenovirus (PCR) Nasal B. parapertussis DNA (PCR) Nasal Coronavir 229E PCR Nasal Coronavir HKU1 PCR Nasal Coronavir NL63 PCR Nasal Coronavir OC43 PCR Nasal Enterovir/Rhinovir PCR Nasal Influenza B PCR Nasal Influenza A PCR Nasal Parainfluen 1 PCR Nasal Parainfluen 2 PCR Nasal Parainfluen 3 PCR Nasal Parainfluen 4 PCR Nasal RSV (PCR) Nasal B.pertussis DNA PCR Nasal C.pneumoniae (PCR) Roger Human Metapneumo PCR Nasal M.pneumoniae (PCR) Nasal SARS-CoV-2 (PCR) 05/28/23 05/28/23 09:57 10:39 WBC RBC Hgb Hct MCV MCH MCHC RDW Plt Count MPV Neut # (Auto) Lymph # (Auto) [place] # (Auto) Eos # (Auto) Baso # (Auto) Absolute Nucleated RBC Nucleated RBC % Sodium Potassium Chloride Carbon Dioxide Anion Gap BUN Creatinine Estimated GFR (MDRD) Glucose POC Whole Bld Glucose 146 H 136 H Calcium Magnesium Total Bilirubin AST ALT Alkaline Phosphatase Total Protein Albumin Globulin Albumin/Globulin Ratio Lipase Nasal Adenovirus (PCR) Nasal B. parapertussis DNA (PCR) Nasal Coronavir 229E PCR Nasal Coronavir HKU1 PCR Nasal Coronavir NL63 PCR Nasal Coronavir OC43 PCR Nasal Enterovir/Rhinovir PCR Nasal Influenza B PCR Nasal Influenza A PCR Nasal Parainfluen 1 PCR Nasal Parainfluen 2 PCR Nasal Parainfluen 3 PCR Nasal Parainfluen 4 PCR Nasal RSV (PCR) Nasal B.pertussis DNA PCR Nasal C.pneumoniae (PCR) Roger Human Metapneumo PCR Nasal M.pneumoniae (PCR) Nasal SARS-CoV-2 (PCR) - Rads (name of study) chest xray Relevant Findings:: Prelim report reviewed, EMP independent interpretation of test (no acute process) PD Medical Decision Making - ED course Complexity details: re-evaluated patient (She is more alert with repeat dose dectrose IV, initially D50W since such quick drop to 33, then maintained with D10W at 150 ml/hr. She remaines alert with that. Feeling anxious anctually. Given Ativan 0.5 mg IV at her request. Less anxious and able to rest. ), considered differential (low blood sugar that improved by EMS with Dextreose IV. was up to 251. Is at 74 when tested on arrival here, and soon after was down to 33. Pt decreasing responsive despite having drank some juice before that. Concern for illness, infection, inadvertant extra dosing of insuling, etc. ) Reviewed Lab Results: So signs of obvious infection with normal CXR, viral panel testing, UA and blood tests of normal WBC and lytes. Repeat blood sugars are remaining okay, but not too high, with the infusion and are checking FSBS hourly. I am concerned for the repeated drop in sugar and the initial one as well. She states she had been feeling "night sweats" during the night the last 4-5 nights. Concern for infectious or viral, but could also consider that she has been having noctural hypoglycemia that awakens her. She has not been checking blood sugars as her monitor was not working. She just got it programmed correctly by Diabetic Nurse yesterday and noted BS was hihg last night at 200s and then low this morning before feeling lightheaded, confused, then less responsive. She had taken her AM insulins but not fully sure if pushed the button to administer the med, but believes so. Does not believe that she double dosed. She denies recent illness, URI symptoms. The low sugar today could potnetially be an actual administration of her meds at correct timing and dosing. She states she had appt with Diabetes Nurse yesterday and found that she was not likely administering her insulin pens correctly, sometimes not depressing the mechanism the correct way (noted by the Educator when watching the pt give herself meds). So the patient may have been getting intermittent dosing of her lantus and lispro, account for not having been getting low sugars at the current doses. Her glucose monitor was not working for few months, so she is not sure exactly wheat her sugar levels have been. ED course: the patient was noted to have bradycardia and altered mentation when her blood sugar dropped back to 74 then 33 over just 1/2 hour or less. This improved promptly when blood suagar dextrose given IV. BP remained good and alertness improved promotly as well. This gives even more concern for watching pt in h ospital to ensure no further drops in blood sugar. Presume lasting effect of the Lantus and the duration of hypoglycemia if unsopported could be even 24 hours or so. - Critical Care Time(min): 48 Comments: low blood sugar with altered mentation, given repeated doses of dextrose, then IV infusion and hourly rechecks. Time Includes: Direct patient care, Reassess patient, Document care, Coordinate care, Medical consult Departure - Departure Disposition: ED Place in Observation Clinical Impression: Altered mental status, Hypoglycemia, Diabetes, Adverse effect of drug with proper dosing Condition: Stable Record reviewed to determine appropriate education?: Yes Discharge Date/Time: 05/28/23 12:46
[2023-05-28] MEDS ORDERED: DEXTROSE 50% ABBOJECT 25 GM/50 ML SYRINGE ONE (08:53)
[2023-05-28] MEDS: DEXTROSE 50% ABBOJECT 25 GM/50 ML SYRINGE IVP STA (08:55)
[2023-05-28 09:05] LABS: BASOPHILS # (AUTO) 0.1 10^3/uL (0.0-0.1); BASOPHILS % (AUTO) 0.7 %; EOSINOPHILS # (AUTO) 0.2 10^3/uL (0.0-0.7); EOSINOPHILS % (AUTO) 2.3 %; HCT - HEMATOCRIT 43.4 % (37.0-47.0); HGB - HEMOGLOBIN 13.8 g/dL (12.0-16.0); LYMPHOCYTES # (AUTO) 1.6 10^3/uL (1.5-3.5); LYMPHOCYTES % (AUTO) 21.6 %; MEAN CORPUSCULAR HEMOGLOBIN 26.9 pg (27.0-31.0); MEAN CORPUSCULAR HGB CONC 31.8 g/dL (32.0-36.0); MEAN CORPUSCULAR VOLUME 84.6 fL (81.0-99.0); MEAN PLATELET VOLUME 10.2 fL (7.9-10.8); MONOCYTES # (AUTO) 0.7 10^3/uL (0.0-1.0); MONOCYTES % (AUTO) 8.9 %; NEUTROPHILS % (AUTO) 66.2 %; PLT - PLATELET COUNT 236 10^3/uL (130-450); RED BLOOD COUNT 5.13 10^6/uL (4.20-5.40); RED CELL DISTRIBUTION WIDTH 13.6 % (12.0-15.0); WHITE BLOOD COUNT 7.5 x10^3/uL (4.8-10.8)
[2023-05-28] MEDS: DEXTROSE 10% 1,000 ML IV STA (09:10)
[2023-05-28] MEDS: LORazepam 2 MG/ML VIAL IVP STA (09:22)
[2023-05-28 09:23] LABS: ALBUMIN 3.7 g/dL (3.2-5.5); ALBUMIN/GLOBULIN RATIO 1.5 (1.0-2.2); BILIRUBIN,TOTAL 0.3 mg/dL (0.2-1.0); CALCIUM 9.7 mg/dL (8.5-10.3); CREATININE 0.6 mg/dL (0.6-1.3); POTASSIUM 3.6 mmol/L (3.5-4.5); TOTAL PROTEIN 6.2 g/dL (6.4-8.9)
[2023-05-28 09:49] LABS: B. PARAPERTUSSIS- RESP PCR PAN NOT DETECTED; B. PERTUSSIS- RESP PCR PANEL NOT DETECTED; C. PNEUMONIAE- RESP PCR PANEL NOT DETECTED; CORONAVIRUS 229E-RESP PCR NOT DETECTED; CORONAVIRUS HKU1-RESP PCR NOT DETECTED; CORONAVIRUS NL63-RESP PCR NOT DETECTED; CORONAVIRUS OC43-RESP PCR NOT DETECTED; HUMAN METAPNEUMOVIRUS NOT DETECTED; INFLUENZA A- RESP PCR PANEL NOT DETECTED; INFLUENZA B - RESP PCR PANEL NOT DETECTED; M. PNEUMONIAE- RESP PCR PANEL NOT DETECTED; PARAINFLUENZA VIRUS 1 NOT DETECTED; PARAINFLUENZA VIRUS 2 NOT DETECTED; PARAINFLUENZA VIRUS 3 NOT DETECTED; PARAINFLUENZA VIRUS 4 NOT DETECTED; RHINOVIRUS/ENTEROVIRUS NOT DETECTED; RSV- RESP PCR PANEL NOT DETECTED; SARS-CoV-2 -RESP PCR PANEL NOT DETECTED
[2023-05-28] MEDS ORDERED: SODIUM CHLORIDE FLUSH 0.9% 10 ML SYRINGE IVP PRN (11:08)
[2023-05-28 11:26] LABS: BILIRUBIN,URINE NEGATIVE (NEGATIVE); CLARITY,URINE CLEAR (CLEAR); GLUCOSE, URINE (UA) 500 mg/dL (NEGATIVE); KETONES,URINE (UA) NEGATIVE (NEGATIVE); LEUKOCYTE ESTERASE, URINE NEGATIVE (NEGATIVE); NITRITE,URINE NEGATIVE (NEGATIVE); OCCULT BLOOD,URINE NEGATIVE (NEGATIVE); PROTEIN,URINE TRACE mg/dL (NEGATIVE); UROBILINOGEN,URINE 0.2 (NORMAL) E.U./dL (NORMAL)
--- NOTE | 2023-05-28 11:32 | HISTORY & PHYSICAL EXAMINATION ---
Chief Complaint - Chief Complaint Chief Complaint: Alteration of conciousness History of Present Illness - Admitted From Admitted From:: Emergency Room - History Obtained From Records Reviewed: Yes History obtained from: [facility] Physician (Dr. Koby Muniz). Patient unable to give history - History of Present Illness HPI Comment/Other: Maribeth Haynes is a 63-year-old woman who presented to the emergency room with altered mental status. Ndmhb-tg-lnqi glucose done in the emergency room was 33 and serum glucose was 43. In the emergency room, patient was treated with D10W and received an amp of D50. It is reported that she also had something to eat though is not clear how much she ate. Since the above interventions, her wrhvi-il-unfn glucose has been greater than 130. I attempted to interview the patient and she is unable to give any history because of somnolence. She did report that she partied last night. She received 0.5 mg of Ativan IV push at 9:22. History - Past Medical History Cardiovascular: reports: High cholesterol Respiratory: reports: None Neuro: reports: None Endocrine/Autoimmune: reports: Type 2 diabetes GI: reports: GERD DIRECTOR OF PLACEMENT: reports: None : reports: None HEENT: reports: None Psych: reports: Bipolar disorder Musculoskeletal: reports: None Derm: reports: None MRSA Hx?: No - Past Surgical History /DIRECTOR OF PLACEMENT: reports: Tubal ligation - Family & Social History Living Situation: With spouse/s.o., With family Social History Notes: She lives with her and disabled son for whom she is the caregiver. 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 She drives a car. She quit smoking 50 years ago. She drinks alcohol only on holidays. - Substance History Use: Uses substance without health or social issues: NONE - POLST Patient has POLST: No Meds/Allgy - Home Medications Home Medications: Ambulatory Orders Medication Instructions Recorded Confirmed Insulin Aspart (Vial) [NovoLOG 40 units SUBQ TIDWM 09/13/14 01/15/23 (VIAL FOR ED USE)] Blood Sugar Diagnostic [Glucometer 1 each MC BID #60 strip 09/04/19 01/14/23 Strips] Blood-Glucose Meter [Glucometer] 1 each MC BID #1 each 09/04/19 01/14/23 Albuterol Sulf [Ventolin Hfa 2 puffs INH Q4HR PRN 01/14/23 01/14/23 Inhaler] Latanoprost 0.005% Ophth Drops 1 drops OPTH HS 01/14/23 01/14/23 [Xalatan Ophth Drops] [place] [facility] [Lithobid] 300 mg PO 1700 #30 tab 01/16/23 Insulin Glargine [Lantus Solostar] 10 unit SUBQ BID #1 ea 01/19/23 Meloxicam [Mobic] 7.5 mg PO BID 10 Days #12 tablet 01/19/23 Phenazopyridine HCl [Pyridium] 100 mg PO TID PRN #15 tablet 01/19/23 cephALEXin [Keflex] 500 mg PO TID #18 cap 01/19/23 Phenazopyridine HCl [Pyridium] 200 mg PO TID PRN #6 tablet 01/27/23 cephALEXin [Keflex] 500 mg PO Q6H #20 cap 01/27/23 polyethylene glycoL 3350(BULK) 17 gm PO DAILY PRN #1 each 02/08/23 [Miralax] hydrOXYzine pamoate [Hydroxyzine 25 - 50 mg PO Q6HR PRN #20 cap 05/02/23 Pamoate] - Allergies Allergies/Adverse Reactions: Allergies Allergy/AdvReac Type Severity Reaction Status Date / Time lisinopril AdvReac Respiratory Verified 05/28/23 08:15 meperidine [From Demerol] AdvReac Dizziness Verified 05/28/23 08:15 Review of Systems - Constitutional Constitutional: reports: Other (Unable to obtain review of systems because of patient's mental status.) Exam - Vital Signs Vital Signs: Vital Signs x48h Temp Pulse Resp BP Pulse Ox 05/28/23 10:13 72 16 162/68 H 100 05/28/23 08:04 36.5 C 80 20 144/64 H 99 - Physical Exam General Appearance: positive: No acute distress Eyes Bilateral: positive: Conjunctivae nml Neck: positive: No JVD, Trachea midline Respiratory: positive: Other (Good air exchange in lung vázquez bilaterally no wh eezing no crackles.) Cardiovascular: positive: Other (Positive S1-S2 no extra heart sounds.) Abdomen: positive: Other (Soft positive bowel sounds nondistended no hepatosplenomegaly) Skin: positive: No rash Neurologic/Psychiatric: positive: Other (Moving all 4 extremities.) Conclusion/Plan - Problem List (1) Altered mental status Conclusion/Plan: The etiology of patient's altered mental status is not clear. She does not appear to be infected and her white blood cell count is normal. She is not anemic. Review of her metabolic panel reveals a normal creatinine with a normal anion gap and liver function tests are normal. Her initial blood sugar was extremely low, however after treatment with serum glucose has increased above 100 and has been consistently above 100. I cannot account for her change in mental status at this time. I would expect with a increase in her blood sugar that she would be more awake and able to answer questions. She did receive 0.5 mg of Ativan intravenously approximately 1 hour before my interview and it is possible that this accounts for her change in mental status at this time. Given the fact that the etiology of her altered mental status is not clear and the fact that she presented with low blood sugars, she will be admitted for observation. Continue to monitor mental status serially. I have requested that the emergency room due to a urine drug screen. (2) Hypoglycemia Conclusion/Plan: Patient presented with a serum glucose of 43. She was given D50 and D10W intravenously and blood sugars have increased to greater than 100. She has had her blood sugar checked on an hourly basis for the last 2 hours and they have been greater than 100. Plan is to continue to monitor her nekwh-oo-esmg glucose checks and treat for low blood sugar per protocol. Patient's mental status is altered and I cannot discuss her medications with her at this time. - Lab Results Fish Bones: 05/28/23 08:55 05/28/23 08:55
[2023-05-28 12:05] LABS: ACETAMINOPHEN 0.5 ug/mL; ETOH - ETHANOL < 10.0 mg/dL
[2023-05-28 12:11] LABS: SALICYLATE < 1.5 mg/dL
[2023-05-28 12:27] LABS: AMPHETAMINE SCREEN,URINE NEGATIVE (NEGATIVE); BARBITURATE SCREEN,UR NEGATIVE (NEGATIVE); BENZODIAZEPINES SCREEN, URINE NEGATIVE (NEGATIVE); BUPRENORPHINE SCREEN, URINE NEGATIVE (NEGATIVE); COCAINE SCREEN URINE NEGATIVE (NEGATIVE); METHADONE SCREEN, URINE NEGATIVE (NEGATIVE); METHAMPHETAMINES SCREEN, URINE NEGATIVE (NEGATIVE); OPIATE SCREEN, URINE NEGATIVE (NEGATIVE); OXYCODONE SCREEN, URINE NEGATIVE (NEGATIVE); THC CANNABINOID SCREEN, URINE NEGATIVE (NEGATIVE); TRICYCLIC ANTIDEPRESSANT,URINE NEGATIVE (NEGATIVE)
--- NOTE | 2023-05-28 12:56 | PHARMACY PROGRESS NOTE ---
- Best Possible Medication History Admit Date and Time: 05/28/23 1108 Processed by: Pharmacy Medications reviewed in ED?: Yes Medication History completed: Yes Patient Interview: Pt unable to participate Secondary Source(s): Pharmacy records, Insurance records As the person ultimately responsible for medication therapy, providers are able to order a medication from an existing home medication list in [facility] via the "Reconcile Routine" prior to Confirmation of that medication by product support manager. Such practice is discouraged except when the physician, in their clinical judgment, deems that a medical need exists for a medication without regard to previous use.
[2023-05-28] MEDS: INSULIN LISPRO 300 UNIT/3 ML PEN SUBQ SCH ×2 (16:30→17:21)
[2023-05-28] MEDS: SODIUM CHLORIDE FLUSH 0.9% 10 ML SYRINGE IVP SCH (17:21)
--- NOTE | 2023-05-28 17:22 | XRAY Report ---
PROCEDURE: Chest 1V INDICATIONS: chest pain TECHNIQUE: One view of the chest was acquired. COMPARISON: None. FINDINGS: Surgical changes and devices: None. Lungs and pleura: No pleural effusions or pneumothorax. Lungs are unchanged from comparison, with a mild chronic interstitial prominence. No acute disease. Mediastinum: Mediastinal contours appear normal. Heart size is normal. Bones and chest wall: No suspicious bony lesions. Overlying soft tissues appear unremarkable. IMPRESSION: Mild interstitial prominence, chronic. Source of new chest pain is not seen. Reviewed by: Fortino Cedeño MD on 05/28/2023 9:07 AM PDT Approved by: Fortino Cedeño MD on 05/28/2023 9:07 AM PDT Station ID: [id number]
[2023-05-28] MEDS ORDERED: LITHIUM ER 300 MG TABLET PO ONE (19:39)
[2023-05-28] MEDS: LITHIUM ER 300 MG TABLET PO SCH (19:42)
[2023-05-28] MEDS: LATANOPROST 0.005% OPHTH DROPS EACHEYE SCH (20:47)
[2023-05-29] MEDS ORDERED: METOPROLOL TARTRATE 50 MG TABLET PO STA (05:27)
[2023-05-29] MEDS: INSULIN LISPRO 300 UNIT/3 ML PEN SUBQ SCH ×2 (09:27→12:30)
[2023-05-29] MEDS: diphenhydrAMINE 25 MG CAPSULE PO PRN (12:24)
--- NOTE | 2023-05-29 13:49 | DISCHARGE SUMMARY ---
Discharge Summary Admit Date: 05/28/23 Discharge Date: 05/29/23 Discharging Provider: Diego Powell MD Primary Care Provider: Simon SALAZAR Code Status: Attempt Resuscitation Condition at Discharge: Stable Discharge Disposition: 01 Home, Self Care - DIAGNOSES Admission Diagnoses: (1) Altered mental status (2) Hypoglycemia Discharge Diagnoses with Status of Each Condition: (1) Altered mental status (2) Hypoglycemia (3) Diabetes Mellitus Type 1 - HPI History of Present Illness: Maribeth Haynes is a 63-year-old woman who presented to the emergency room with altered mental status. Pjkhk-ku-mdun glucose done in the emergency room was 33 and serum glucose was 43. In the emergency room, patient was treated with D10W and received an amp of D50. It is reported that she also had something to eat though is not clear how much she ate. Since the above interventions, her umxzu-cw-vpiv glucose has been greater than 130. I attempted to interview the patient and she is unable to give any history because of somnolence. She did report that she partied last night. She received 0.5 mg of Ativan IV push at 9:22. - HOSPITAL COURSE Hospital Course: Maribeth Haynes was admitted to the hospital with observation status. Her mental status returned to baseline quickly after arriving on the medical floor. She was placed on sliding scale insulin upon arrival with 5 units of lispro before each meal. Her blood sugar control has significantly improved and plan is to discharge to home on 10 units of Lantus in the evening with a sliding scale with meals and before bedtime. Patient was instructed to keep track of her blood sugars and how many units of insulin she uses. Recommend she follow-up with her primary care provider to adjust her insulin dose as needed. Patient reports she takes Ziprasidone, Pregabilin and aspirin as an outpatient. She reports she has been out of the ziprasidone and prebabilin for a long time and I recommended she follow-up with her primary care provider before initiating these medications once again. Patient will use NovoLog for her sliding scale. Patient received diabetic teaching prior to discharge from nursing staff. - ALLERGIES Allergies/Adverse Reactions: Allergies Allergy/AdvReac Type Severity Reaction Status Date / Time lisinopril AdvReac Respiratory Verified 05/28/23 08:15 meperidine [From Demerol] AdvReac Dizziness Verified 05/28/23 08:15 - MEDICATIONS Home Medications: Ambulatory Orders Medication Instructions Recorded Confirmed Latanoprost 0.005% Ophth Drops 1 drops EACHEYE HS 01/14/23 05/28/23 [Xalatan Ophth Drops] [place] [facility] [Lithobid] 300 mg PO 1700 #30 tab 01/16/23 05/28/23 Insulin Glargine [Lantus Solostar] 10 unit SUBQ BID #1 ea 01/19/23 05/28/23 Eszopiclone [Lunesta] 2 mg PO HS 05/28/23 05/28/23 Pregabalin 50 mg PO BID PRN 05/28/23 05/28/23 Ziprasidone [Geodon] 20 mg PO BID 05/28/23 05/28/23 hydrOXYzine pamoate [Hydroxyzine 25 mg PO Q6HR PRN #30 cap 05/29/23 Pamoate] - PHYSICAL EXAM AT DISCHARGE General Appearance: positive: No acute distress, Alert Eyes Bilateral: positive: Normal inspection Neck: positive: Thyroid nml, Trachea midline Respiratory: positive: Other (Good air exchange in all lung vázquez no wheezing no crackles.) Cardiovascular: positive: Other (Positive S1-S2 no extra heart sounds.) Abdomen: positive: Other (Soft nontender positive bowel sounds) Skin: positive: No rash Extremities: positive: No pedal edema Neurologic/Psychiatric: positive: Oriented x3, Motor nml - LABS Result Diagrams: 05/28/23 08:55 05/28/23 08:55 - FOLLOW UP Follow Up: Follow-up with MARTIN Kenyon in 2-4 weeks. - TIME SPENT Time Spent in Discharge (Minutes): 33 ( A significant amount of time was spent with the patient discussing how to give her insulin and when to give it. We also went over her sliding scale in detail.)
--- NOTE | 2023-05-29 13:49 | Discharge Plan ---
Discharge Plan Problem Reviewed?: Yes Disposition: Home, Self Care Condition: Stable Prescriptions: hydrOXYzine pamoate [Hydroxyzine Pamoate] 25 mg PO Q6HR PRN #30 cap PRN Reason: Itching Diet: Diabetic Activity Restrictions: No Restrictions Shower Restrictions: No Driving Restrictions: No Weight Bearing: Full Weight Instruction Topics: Hypoglycemia Health Concerns: History of Present Illness: Maribeth Haynes is a 63-year-old woman who presented to the emergency room with altered mental status. Novbd-bc-lopy glucose done in the emergency room was 33 and serum glucose was 43. In the emergency room, patient was treated with D10W and received an amp of D50. It is reported that she also had something to eat though is not clear how much she ate. Since the above interventions, her fpcih-vx-nint glucose has been greater than 130. I attempted to interview the patient and she is unable to give any history because of somnolence. She did report that she partied last night. She received 0.5 mg of Ativan IV push at 9:22. Hospital Course: Maribeth Haynes was admitted to the hospital with observation status. Her mental status returned to baseline quickly after arriving on the medical floor. She was placed on sliding scale insulin upon arrival with 5 units of lispro before each meal. Her blood sugar control has significantly improved and plan is to discharge to home on 10 units of Lantus in the evening with a sliding scale with meals and before bedtime. Patient was instructed to keep track of her blood sugars and how many units of insulin she uses. Recommend she follow-up with her primary care provider to adjust her insulin dose as needed. Patient reports she takes Ziprasidone, Pregabilin and aspirin as an outpatient. She reports she has been out of the ziprasidone and prebabilin for a long time and I recommended she follow-up with her primary care provider before initiating these medications once again. Patient will use NovoLog for her sliding scale. Patient received diabetic teaching prior to discharge from nursing staff. Plan of Treatment: 1. Take all medications as prescribed 2. Please take Lantus in the evening (10 Units subcutaneously) and use a sliding scale at mealtimes and before bedtime for blood sugar control. Please also take 5 units of lispro in addition to your sliding scale before meals. Basal insulin dose = 5 units subcutaneously If Glucose less than 100 do not give any insulin If Glucose 100-139, give basal insulin (5 units subcutaneously) dose dose only If Glucose greater than or equal to 140, give basal insulin plus sliding scale: Moderate High Dose Algorithm 141-180 2 unit 181-225 4 units 226-275 6 units 276-325 8 units 326-375 10 units > 375 contact MD 3. Please keep a log of your blood sugars and doses of insulin with each dose for 2 weeks prior to seeing your health provider. 4. Please go to the emergency room or seek care in a clinic if your blood sugars are uncontrolled and persistently greater than 375 or you have blood sugars less than 60 that do not respond to treatment with food or glucose tablets Care Goals: Goal of care is to control blood sugar and avoid high serum glucose and hypoglycemia. Assessment: In summary, Maribeth Haynes presented to the emergency room with documented serum glucose in the 40s. She was treated with D50 and D10W. Her blood sugar improved quickly and as well as her mental status. She feels she may have given herself a double dose of Lantus. During her stay in the hospital we adjusted her long-acting insulin and her short acting insulin. Patient to follow-up with her primary care provider for further adjustments. No Smoking: If you smoke, Please STOP! Call for help. Follow-up with: TORI RHODES PA [Primary Care Provider] -
[2023-05-29 16:01] VITALS: BP 147/71; O2SAT 98
[2023-05-30 09:10] LABS: ESTIMATED AVERAGE GLUCOSE 280 mg/dL (70-100); HEMOGLOBIN A1c% 11.4 % (4.27-6.07)
== END 2023-05-29 19:30 | disposition home or self-care (01) ==
LOC: EDUNIT# → SUPCPDRO 07:59 → ED 07:59 → MS2 11:08
PROVIDERS: ADMIT Internal Medicine; ATTEND Internal Medicine
DX: R41.82 Altered mental status, unspecified (principal); E11.649 Type 2 diabetes mellitus with hypoglycemia without coma; R07.9 Chest pain, unspecified; F31.9 Bipolar disorder, unspecified; I49.3 Ventricular premature depolarization; Z20.818 Contact with and (suspected) exposure to other bacterial communicable diseases; Z20.822 Contact with and (suspected) exposure to COVID-19; Z20.828 Contact with and (suspected) exposure to other viral communicable diseases; Z79.4 Long term (current) use of insulin; Z79.899 Other long term (current) drug therapy; Z91.199 Patient's noncompliance with other medical treatment and regimen due to unspecified reason
CPT/HCPCS: 36415; 71045; 80053; 80143; 80306; 81003; 83036; 83690; 83735; 85025; 87633; 93005; 96365; 96366; 96375; 99285; 99291; A9270; G0378; G0480; J2060; 80179; 81001; 82077; 87086

== ENCOUNTER 2023-06-10 17:55 | Emergency (ER) | payer MEDICARE, OTHER ==
[2023-06-10 18:57] LABS: BASOPHILS % (AUTO) 0.6 %; EOSINOPHILS # (AUTO) 0.2 10^3/uL (0.0-0.7); EOSINOPHILS % (AUTO) 2.6 %; HCT - HEMATOCRIT 40.7 % (37.0-47.0); HGB - HEMOGLOBIN 12.9 g/dL (12.0-16.0); LYMPHOCYTES # (AUTO) 1.2 10^3/uL (1.5-3.5); LYMPHOCYTES % (AUTO) 19.3 %; MEAN CORPUSCULAR HGB CONC 31.7 g/dL (32.0-36.0); MEAN CORPUSCULAR VOLUME 85.1 fL (81.0-99.0); MEAN PLATELET VOLUME 10.8 fL (7.9-10.8); MONOCYTES # (AUTO) 0.5 10^3/uL (0.0-1.0); MONOCYTES % (AUTO) 8.2 %; NEUTROPHILS # (AUTO) 4.4 10^3/uL (1.5-6.6); PLT - PLATELET COUNT 170 10^3/uL (130-450); RED BLOOD COUNT 4.78 10^6/uL (4.20-5.40); RED CELL DISTRIBUTION WIDTH 13.8 % (12.0-15.0); WHITE BLOOD COUNT 6.4 x10^3/uL (4.8-10.8)
--- NOTE | 2023-06-10 18:58 | ED Physician Documentation ---
PD HPI CHEST PAIN - Stated complaint Stated Complaint: CHEST PX - Chief complaint Chief Complaint: Cardiac - History obtained from History obtained from: Patient - Additional information Additional information: She has a history of bradycardias in the past. 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 She still takes lithium but at a much lower dose. She was admitted here for hypoglycemia associated with bradycardia about a week and a half ago. Starting today at 5:30 PM well bringing groceries into the house she developed substernal chest pain which has since resolved. It was still going on when she was in triage, and the triage EKG shows a junctional bradycardia. She was feeling quite tired with it. As I enter the room she is back in normal sinus rhythm on the monitor and the chest pain is gone. She is not short of breath. PD PAST MEDICAL HISTORY - Past Medical History Cardiovascular: High cholesterol Respiratory: None Neuro: None Endocrine/Autoimmune: Type 2 diabetes GI: GERD SENIOR ETL DEVELOPER: None : None HEENT: None Psych: Bipolar disorder Musculoskeletal: None Derm: None - Past Surgical History Past Surgical History: Yes /SENIOR ETL DEVELOPER: Tubal ligation - Present Medications Home Medications: Ambulatory Orders Medication Instructions Recorded Confirmed Latanoprost 0.005% Ophth Drops 1 drops EACHEYE HS 01/14/23 06/10/23 [Xalatan Ophth Drops] [place] ER [Lithobid] 300 mg PO 1700 #30 tab 01/16/23 06/10/23 Eszopiclone [Lunesta] 2 mg PO HS PRN 05/28/23 06/10/23 Pregabalin 50 mg PO BID PRN 05/28/23 06/10/23 Ziprasidone [Geodon] 20 mg PO BID 05/28/23 06/10/23 hydrOXYzine pamoate [Hydroxyzine 25 mg PO Q6HR PRN #30 cap 05/29/23 06/10/23 Pamoate] Aspirin [Aspirin EC] 81 mg PO DAILY 06/10/23 06/10/23 Insulin Aspart [NovoLOG] 5 unit SUBQ TIDWM PRN 06/10/23 06/10/23 Insulin Glargine [Lantus Solostar] 10 unit SUBQ HS 06/10/23 06/10/23 - Allergies Allergies/Adverse Reactions: Allergies Allergy/AdvReac Type Severity Reaction Status Date / Time lisinopril AdvReac Respiratory Verified 06/10/23 18:06 meperidine [From Demerol] AdvReac Dizziness Verified 06/10/23 18:06 - Social History Does the pt smoke?: No Smoking Status: Never smoker Does the pt drink ETOH?: No Does the pt have substance abuse?: No - Immunizations Immunizations are current?: No - POLST Patient has POLST: No PD ED PE NORMAL - Vitals Vital signs reviewed: Yes - General General: Alert and oriented X 3, No acute distress - Cardiac Cardiac: RRR, No murmur - Respiratory Respiratory: No respiratory distress, Clear bilaterally - Abdomen Abdomen: Non tender - Extremities Extremities: No edema, No calf tenderness / cord - Neuro Neuro: Alert and oriented X 3, Normal speech Results - Vitals Vitals: Vital Signs - 24 hr 06/10/23 06/10/23 06/10/23 18:06 19:28 19:30 Temperature 36.8 C Heart Rate 45 L 68 73 Respiratory 16 16 15 Rate Blood Pressure 130/50 L 163/76 H 146/63 H O2 Saturation 99 98 98 06/10/23 06/10/23 06/10/23 20:00 20:30 21:00 Temperature Heart Rate 68 77 72 Respiratory 13 17 15 Rate Blood Pressure 135/58 H O2 Saturation 97 98 98 06/10/23 06/10/23 06/10/23 21:30 22:00 22:30 Temperature Heart Rate 72 76 75 Respiratory 15 15 17 Rate Blood Pressure 150/96 H 136/67 H O2 Saturation 98 97 98 06/10/23 23:00 Temperature 36.8 C Heart Rate 70 Respiratory 18 Rate Blood Pressure 150/69 H O2 Saturation 97 Oxygen O2 Source Room air - EKG (time done) 1821 EKG releavant findings:: EKG personally interpreted by author of this note. Relevant findings are: Rate: Rate (enter#) (46) Rhythm: Other (Junctional bradycardia with PVC) QRS: LVH Ischemia: Non specific changes. No: ST elevation c/w ischemia 2206 EKG releavant findings:: EKG personally interpreted by author of this note. Relevant findings are: Rate: Rate (enter#) (74) Rhythm: NSR (W PAC) [place]: Normal Intervals: Normal [place] QRS: LVH Ischemia: Non specific changes. No: ST elevation c/w ischemia, ST depression - Labs Labs: Laboratory Tests 06/10/23 06/10/23 06/10/23 18:13 18:50 18:50 WBC 6.4 RBC 4.78 Hgb 12.9 Hct 40.7 MCV 85.1 MCH 27.0 MCHC 31.7 L RDW 13.8 Plt Count 170 MPV 10.8 Neut # (Auto) 4.4 Lymph # (Auto) 1.2 L [place] # (Auto) 0.5 Eos # (Auto) 0.2 Baso # (Auto) 0.0 Absolute Nucleated RBC 0.00 Nucleated RBC % 0.0 Sodium 137 Potassium 3.9 Chloride 107 Carbon Dioxide 25 Anion Gap 5.0 L BUN 30 H Creatinine 0.6 Estimated GFR (MDRD) 100 Glucose 207 H POC Whole Bld Glucose 213 H Calcium 8.9 Magnesium 1.8 Total Bilirubin 0.2 AST 14 ALT 13 Alkaline Phosphatase 91 Troponin I High Sens 6.6 Total Protein 5.7 L Albumin 3.6 Globulin 2.1 Albumin/Globulin Ratio 1.7 Last Dose Date Last Dose Time [place] 06/10/23 06/10/23 19:00 22:42 WBC RBC Hgb Hct MCV MCH MCHC RDW Plt Count MPV Neut # (Auto) Lymph # (Auto) [place] # (Auto) Eos # (Auto) Baso # (Auto) Absolute Nucleated RBC Nucleated RBC % Sodium Potassium Chloride Carbon Dioxide Anion Gap BUN Creatinine Estimated GFR (MDRD) Glucose POC Whole Bld Glucose Calcium Magnesium Total Bilirubin AST ALT Alkaline Phosphatase Troponin I High Sens 6.8 Total Protein Albumin Globulin Albumin/Globulin Ratio Last Dose Date UNK Last Dose Time UNK [place] 0.19 PD Medical Decision Making - ED course ED course: She has had bradycardias in the past with lithium toxicity, she is on a lower dose but will need to check that today. She had substernal chest pain with bradycardia today. She is not on any beta-blockers. No calcium channel blockers. She had bradycardia a week ago when she was hypoglycemic but in triage her blood sugar is 213. 63-year-old woman who is having intermittent bradycardias. And she presented tonight with chest pain and weakness related to a junctional rhythm with heart rate of 46. Workup in the emergency department demonstrates normal electrolytes, negative troponin, unremarkable CBC, and a subtherapeutic lithium level at 0.19. At approximately 8:15 PM I discussed the case by phone with her stunner animal, Dr. Alonzo who recommends transfer to [facility] for EP observation and workup. Subsequently we were notified to that [facility] had no beds and the search was widened for transfer for cardiology services. At 9:40 PM I spoke with Dr. Hermosillo, hospitalist in [place]. He wanted to have us talk with cardiology before excepting the patient but during that phone call the transfer center there noted they do not have any beds either. Subsequently spoke with Dr. Hicks, cardiology in [place] at approximate 10:15 PM. He did not feel like the bradycardia and of itself merited admission or transfer. He felt that was an outpatient workup. In the interim the patient had developed some more chest pain and a repeat EKG was done, this time with a sinus rhythm and PACs and LVH but no ST elevation or depression. Plan on getting another troponin IN a little bit. Subsequently about 10:55 PM [facility] called back and said that they do think the patient should be transferred and have accepted the patient and cobras are completed. Departure - Departure Disposition: 02 Transfer Acute Care Hosp Clinical Impression: Sick sinus syndrome, Chest pain, DM type 2 (diabetes mellitus, type 2) Condition: Stable Forms: PCP List
[2023-06-10 19:06] LABS: MAGNESIUM 1.8 mg/dL (1.7-2.3)
[2023-06-10 19:12] LABS: ALBUMIN 3.6 g/dL (3.2-5.5); ALBUMIN/GLOBULIN RATIO 1.7 (1.0-2.2); BILIRUBIN,TOTAL 0.2 mg/dL (0.2-1.0); CALCIUM 8.9 mg/dL (8.5-10.3); CREATININE 0.6 mg/dL (0.6-1.3); POTASSIUM 3.9 mmol/L (3.5-4.5); TOTAL PROTEIN 5.7 g/dL (6.4-8.9)
[2023-06-10 19:18] LABS: TROPONIN I HIGH SENSITIVITY 6.6 ng/L (2.3-14.8)
[2023-06-10 19:45] LABS: LITHIUM 0.19 mmol/L
--- NOTE | 2023-06-11 05:07 | ED Physician Documentation ---
ED Addendum - Addendum Addendum: 06/11/23 05:06 Patient is displaying increased urinary frequency therefore urinalysis was ordered. Plan to follow-up results and endorsed to oncoming daytime EDMD at 7 AM shift change given that she does not have a bed yet at [facility]. 06/11/23 05:07 06/11/23 06:40 Note that we did not hear from [facility] overnight and so called back to check in and the extrusion press supervisor had actually recommended outpatient follow up. There was a mixup in that [facility] actually had a bed for a different patient at [facility] that was inpatient overnight. Plan is for her to f/u outpatient cardiology clinic. return precautions given. Patient signed out to Dr. Muniz pending .
[2023-06-11 06:19] LABS: BILIRUBIN,URINE NEGATIVE (NEGATIVE); GLUCOSE, URINE (UA) 500 mg/dL (NEGATIVE); KETONES,URINE (UA) NEGATIVE (NEGATIVE); LEUKOCYTE ESTERASE, URINE NEGATIVE (NEGATIVE); NITRITE,URINE NEGATIVE (NEGATIVE); OCCULT BLOOD,URINE NEGATIVE (NEGATIVE); PROTEIN,URINE 30 mg/dL (NEGATIVE); UROBILINOGEN,URINE 0.2 (NORMAL) E.U./dL (NORMAL)
[2023-06-11 06:21] LABS: CLARITY,URINE CLEAR (CLEAR)
[2023-06-11 06:24] LABS: BACTERIA,URINE Rare /HPF (None Seen); RBC,URINE 0-5 /HPF (0-5); SQUAMOUS EPITHELIAL CELL,UR FEW Squamous (<= Few); WBC,URINE 0-3 /HPF (0-5)
[2023-06-11] MEDS: MAG HYDROX/AL HYDROX/SIMETH 30 ML UDC PO STA (08:42)
[2023-06-11] MEDS: HYDROmorphone 0.5 MG/0.5 ML SYRINGE IVP STA (08:42)
[2023-06-11] MEDS: KETOROLAC 15 MG/ML VIAL IVP STA (08:42)
--- NOTE | 2023-06-11 08:44 | ED Physician Documentation ---
ED Addendum - Addendum Addendum: 06/11/23 08:41 On signout this morning, Dr. Huang states she talked with blair [facility] again and their recommendation had been still for cardiology to see the patient outpatient follow-up and to discharge the patient. Dr. Pisano's note from last night had stated that but then had an amendment stating the were still looking for a bed for the patient for the morning. However that apparently was a confusion with another [facility] and when they rechecked again this morning the transfer center stated that there had been that confusion of patients and the recommendation for Ms. Haynes is still for discharge. The patient did have the benefit of another 12 hours of monitoring which showed no significant bradycardias and no symptoms associated. She had fleeting episodes of chest pain that did not correlate with any's heart rate changes. A third troponin this morning was still negative. She was given some Toradol and Mylanta this morning as she did describe a brief onset of a left parasternal pain as I was talking with her. It lasted a few seconds and then was improving. At this point the patient seems stable with regard to heart rate and the bradycardic episodes are self-limited and not associated with symptoms. It does not appear to be instigated however like it was with the low blood sugar 2 weeks ago. Unclear the cause. She does not have any rate limiting medications apparently such as beta-blockers or calcium blockers. Her lithium level is normal to subtherapeutic. The patient should follow-up with the cardiology office for further evaluation and assessment on the heart rhythm. I did talk with the patient and explained the situation and that we had done the short-term evaluation and monitoring that would have gotten done at [facility] and she was understanding of it. Disposition: The patient discharged home in stable condition. Diagnoses: 1. Anterior chest pain of uncertain etiology 2. Bradycardic episodes 3. Diabetes 06/11/23 08:44
[2023-06-11 09:03] VITALS: BP 169/77; O2SAT 99
== END 2023-06-11 09:24 | disposition home or self-care (01) ==
LOC: ED 17:55
DX: I49.5 Sick sinus syndrome (principal); R07.9 Chest pain, unspecified; E11.9 Type 2 diabetes mellitus without complications; Z79.4 Long term (current) use of insulin; F31.9 Bipolar disorder, unspecified; Z79.899 Other long term (current) drug therapy; Z75.1 Person awaiting admission to adequate facility elsewhere
CPT/HCPCS: 36415; 80053; 80178; 81001; 83735; 84484; 85025; 93005; 96374; 99284; A9270; J1170; 87086

== ENCOUNTER 2023-06-13 15:46 | Emergency (ER) | payer MEDICARE, OTHER ==
[2023-06-13 16:19] LABS: BASOPHILS # (AUTO) 0.1 10^3/uL (0.0-0.1); EOSINOPHILS # (AUTO) 0.1 10^3/uL (0.0-0.7); HGB - HEMOGLOBIN 13.1 g/dL (12.0-16.0); LYMPHOCYTES # (AUTO) 0.7 10^3/uL (1.5-3.5); LYMPHOCYTES % (AUTO) 14.9 %; MEAN CORPUSCULAR HEMOGLOBIN 26.7 pg (27.0-31.0); MEAN CORPUSCULAR HGB CONC 31.2 g/dL (32.0-36.0); MEAN CORPUSCULAR VOLUME 85.7 fL (81.0-99.0); MEAN PLATELET VOLUME 10.9 fL (7.9-10.8); MONOCYTES # (AUTO) 0.3 10^3/uL (0.0-1.0); MONOCYTES % (AUTO) 6.9 %; NEUTROPHILS # (AUTO) 3.7 10^3/uL (1.5-6.6); NEUTROPHILS % (AUTO) 74.8 %; PLT - PLATELET COUNT 174 10^3/uL (130-450); RED CELL DISTRIBUTION WIDTH 13.8 % (12.0-15.0); WHITE BLOOD COUNT 4.9 x10^3/uL (4.8-10.8)
--- NOTE | 2023-06-13 16:29 | ED Physician Documentation ---
History of Present Illness - Stated complaint Stated Complaint: DIZZY/CONFUSED - Chief complaint Chief Complaint: Neuro - History obtained from History obtained from: Patient, Family - History of Present Illness Timing: Today Pain level max: 0 Pain level now: 0 - Additonal information Additional information: Patient is a 63-year-old female, diabetic. She states that her blood sugar went down to 58 today, she felt lightheaded, dizzy and sweaty. She ate a sandwich with "honey" and blood sugar went up to 190. The dizziness, sweatiness and nausea resolved. She is currently asymptomatic. She states that she came in because last time this happened her heart rate went low and she wanted to be checked. No chest pain. No shortness of breath. No abdominal pain. She sees her frit burner tomorrow. Review of Systems Constitutional: denies: Fever, Chills Throat: denies: Sore throat Cardiac: denies: Chest pain / pressure, Palpitations Respiratory: denies: Cough GI: reports: Nausea. denies: Abdominal Pain, Vomiting, Diarrhea, Hematemesis, Bloody / black stool : denies: Dysuria, Frequency, Hesitancy PD PAST MEDICAL HISTORY - Past Medical History Cardiovascular: High cholesterol Respiratory: None Neuro: None Endocrine/Autoimmune: Type 2 diabetes GI: GERD TESTING COORDINATOR: None : None HEENT: None Psych: Bipolar disorder Musculoskeletal: None Derm: None - Past Surgical History Past Surgical History: Yes /TESTING COORDINATOR: Tubal ligation - Present Medications Home Medications: Ambulatory Orders Medication Instructions Recorded Confirmed Latanoprost 0.005% Ophth Drops 1 drops EACHEYE HS 01/14/23 06/10/23 [Xalatan Ophth Drops] [place] ER [Lithobid] 300 mg PO 1700 #30 tab 01/16/23 06/10/23 Eszopiclone [Lunesta] 2 mg PO HS PRN 05/28/23 06/10/23 Pregabalin 50 mg PO BID PRN 05/28/23 06/10/23 Ziprasidone [Geodon] 20 mg PO BID 05/28/23 06/10/23 hydrOXYzine pamoate [Hydroxyzine 25 mg PO Q6HR PRN #30 cap 05/29/23 06/10/23 Pamoate] Aspirin [Aspirin EC] 81 mg PO DAILY 06/10/23 06/10/23 Insulin Aspart [NovoLOG] 5 unit SUBQ TIDWM PRN 06/10/23 06/10/23 Insulin Glargine [Lantus Solostar] 10 unit SUBQ HS 06/10/23 06/10/23 - Allergies Allergies/Adverse Reactions: Allergies Allergy/AdvReac Type Severity Reaction Status Date / Time lisinopril AdvReac Respiratory Verified 06/13/23 16:28 meperidine [From Demerol] AdvReac Dizziness Verified 06/13/23 16:28 - Social History Does the pt smoke?: No Smoking Status: Never smoker Does the pt drink ETOH?: No Does the pt have substance abuse?: No - Immunizations Immunizations are current?: No - POLST Patient has POLST: No PD ED PE NORMAL - Vitals Vital signs reviewed: Yes - General General: Alert and oriented X 3, No acute distress - HEENT HEENT: PERRL, Moist mucous membranes - Neck Neck: Supple, no meningeal sign - Cardiac Cardiac: RRR, Strong equal pulses - Respiratory Respiratory: No respiratory distress, Clear bilaterally - Abdomen Abdomen: Soft, Non tender, Non distended - Derm Derm: Warm and dry - Extremities Extremities: No edema, No calf tenderness / cord - Neuro Neuro: Alert and oriented X 3 - Psych Psych: Normal mood, Normal affect Results - Vitals Vitals: Vital Signs - 24 hr 06/13/23 06/13/23 16:19 17:21 Temperature 36.8 C Heart Rate 63 69 Respiratory 18 18 Rate Blood Pressure 132/72 H 141/71 H O2 Saturation 98 100 Oxygen O2 Source Room air - EKG (time done) 1622 EKG releavant findings:: EKG personally interpreted by author of this note. Relevant findings are: Rate: Rate (enter#) (66) Rhythm: NSR [place]: Other (LAFB) Intervals: Normal [place] QRS: Normal, LVH Ischemia: Normal ST segments - Labs Labs: Laboratory Tests 06/13/23 06/13/23 06/13/23 16:14 16:14 16:14 WBC 4.9 RBC 4.90 Hgb 13.1 Hct 42.0 MCV 85.7 MCH 26.7 L MCHC 31.2 L RDW 13.8 Plt Count 174 MPV 10.9 H Neut # (Auto) 3.7 Lymph # (Auto) 0.7 L [place] # (Auto) 0.3 Eos # (Auto) 0.1 Baso # (Auto) 0.1 Absolute Nucleated RBC 0.00 Nucleated RBC % 0.0 Sodium 138 Potassium 3.7 Chloride 106 Carbon Dioxide 27 Anion Gap 5.0 L BUN 20 Creatinine 0.7 Estimated GFR (MDRD) 84 L Glucose 191 H POC Whole Bld Glucose 191 H Calcium 9.0 Total Bilirubin 0.3 AST 12 ALT 13 Alkaline Phosphatase 93 Total Protein 6.6 Albumin 3.9 Globulin 2.7 Albumin/Globulin Ratio 1.4 PD Medical Decision Making - ED course Complexity details: reviewed results, re-evaluated patient, considered differential, d/w patient, d/w family ED course: Patient is asymptomatic here. No acute findings on EKG. No chest pain. No shortness of breath. No palpitations. Tolerating p.o. without difficulty. No recurrent hypoglycemia. I did adjust to the lower alarm on her glucose monitor to 80 from 70. This should give her more time to avoid further decreases in her blood sugar. She will follow-up with her PCP and frit burner tomorrow as scheduled. Patient counseled regarding signs and symptoms for which I believe and urgent re-evaluation would be necessary. Patient with good understanding of and agreement to plan and is comfortable going home at this time This document was made in part using voice recognition software. While efforts are made to proofread this document, sound alike and grammatical errors may occur. Departure - Departure Disposition: 01 Home, Self Care Clinical Impression: Hypoglycemia Condition: Good Instructions: ED Diabetes Hypoglycemia Insulin React Follow-Up: TORI RHODES PA [Primary Care Provider] - Within 3 Days Comments: Please follow up with your doctor for further care. Please continue to monitor your blood sugar closely at home and follow-up with your frit burner tomorrow as scheduled. Please return if you worsen. Contact your doctor tomorrow to talk about adjusting your insulin. Forms: PCP List Discharge Date/Time: 06/13/23 17:21
[2023-06-13 16:33] LABS: ALBUMIN 3.9 g/dL (3.2-5.5); ALBUMIN/GLOBULIN RATIO 1.4 (1.0-2.2); BILIRUBIN,TOTAL 0.3 mg/dL (0.2-1.0); CREATININE 0.7 mg/dL (0.6-1.3); POTASSIUM 3.7 mmol/L (3.5-4.5); TOTAL PROTEIN 6.6 g/dL (6.4-8.9)
[2023-06-13 17:27] VITALS: BP 141/71; O2SAT 100
== END 2023-06-13 17:21 | disposition home or self-care (01) ==
LOC: ED 15:46
DX: E11.649 Type 2 diabetes mellitus with hypoglycemia without coma (principal); Z79.4 Long term (current) use of insulin
CPT/HCPCS: 36415; 80053; 85025; 93005; 99283

== ENCOUNTER 2023-06-21 20:10 | Outpatient (CLI) | payer MEDICARE, OTHER | END 2023-06-21 23:59 | disposition home or self-care (01) | LOC: EMS 20:10 | DX: R07.9 Chest pain, unspecified (principal); R10.9 Unspecified abdominal pain | CPT/HCPCS: A0425; A0429 ==

== ENCOUNTER 2023-07-10 22:57 | Emergency (ER) | payer MEDICARE, OTHER ==
--- NOTE | 2023-07-10 23:28 | ED Physician Documentation ---
History of Present Illness - Stated complaint Stated Complaint: MEDICATION ISSUE - Chief complaint Chief Complaint: General - History obtained from History obtained from: Patient - Additonal information Additional information: 63-year-old female presents requesting a refill of her NovoLog. Patient states that for an unknown amount of time she has been using insulin. She contacted her endocrinology clinic, however she was concerned that it would take too long to get a refill and the insurance nurse told her to come to the emergency department. She has a roni glucose monitor on her left arm. 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 MOLDER 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: None : None HEENT: None Psych: Bipolar disorder Musculoskeletal: None Derm: None - Past Surgical History Past Surgical History: Yes /MACHINE MOLDER SQUEEZE: Tubal ligation - Present Medications Home Medications: Ambulatory Orders Medication Instructions Recorded Confirmed Latanoprost 0.005% Ophth Drops 1 drops EACHEYE HS 01/14/23 06/21/23 [Xalatan Ophth Drops] Pregabalin 50 mg PO BID PRN 05/28/23 06/10/23 Ziprasidone [Geodon] 20 mg PO BID 05/28/23 06/21/23 hydrOXYzine pamoate [Hydroxyzine 25 mg PO Q6HR PRN #30 cap 05/29/23 06/10/23 Pamoate] Aspirin [Aspirin EC] 81 mg PO DAILY 06/10/23 06/21/23 Insulin Aspart [NovoLOG] 5 unit SUBQ TIDWM PRN 06/10/23 06/21/23 Insulin Glargine [Lantus Solostar] 10 unit SUBQ HS 06/10/23 06/21/23 Apixaban [Eliquis] 5 mg PO BID 06/21/23 06/21/23 Atorvastatin Calcium [Lipitor] 80 mg PO DAILY 06/21/23 06/21/23 [place] ER [Lithobid] 300 mg PO DAILY 06/21/23 06/21/23 Insulin Aspart [NovoLOG] 5 unit SUBQ TIDWM #1 applic 07/10/23 - Allergies Allergies/Adverse Reactions: Allergies Allergy/AdvReac Type Severity Reaction Status Date / Time lisinopril AdvReac Respiratory Verified 07/10/23 23:20 meperidine [From Demerol] AdvReac Dizziness Verified 07/10/23 23:20 - Social History Does the pt smoke?: No Smoking Status: Never smoker Does the pt drink ETOH?: No Does the pt have substance abuse?: No - Immunizations Immunizations are current?: No - POLST Patient has POLST: No PD ED PE NORMAL - Vitals Vital signs reviewed: Yes - General General: Alert and oriented X 3, No acute distress, Well developed/nourished - Neck Neck: Supple, no meningeal sign - Cardiac Cardiac: RRR, Strong equal pulses - Respiratory Respiratory: No respiratory distress, Clear bilaterally - Abdomen Abdomen: Soft, Non tender, Non distended - Derm Derm: Normal color, Warm and dry, No rash - Extremities Extremities: No deformity, No tenderness to palpate, Normal ROM s pain, No edema - Neuro Neuro: Alert and oriented X 3, direct service worker 2-12 intact, No motor deficit, Normal speech - Psych Psych: Normal mood, Normal affect Results - Vitals Vitals: Vital Signs - 24 hr 07/10/23 07/11/23 23:13 00:17 Temperature 36.8 C Heart Rate 80 60 Respiratory 18 18 Rate Blood Pressure 139/55 H 128/90 H O2 Saturation 99 98 Oxygen O2 Source Room air - Labs Labs: Laboratory Tests 07/10/23 23:50 POC Whole Bld Glucose 207 H PD Medical Decision Making - ED course Complexity details: reviewed results, re-evaluated patient, considered differential, d/w patient ED course: Well-appearing patient presenting for medication refill. She has no specific complaints other than requesting a single pen of NovoLog. She is also requesting her nightly dose of insulin be administered here, based on her sliding scale and glucose of 208 she needs 9 total units of insulin, which were ordered. She states that she has other refills coming once her magnetic prospecting supervisor can honor the refill request, but until she can get those refills she just needs a single pen. Refill sent to pharmacy of choice. Patient given her 9 units of insulin prior to departure. Departure - Departure Disposition: 01 Home, Self Care Clinical Impression: Medication refill Condition: Stable Instructions: Injection Pens Dc Prescriptions: Insulin Aspart [NovoLOG] 5 unit SUBQ TIDWM #1 applic Comments: Continue to monitor your glucoses. A refill of your insulin pen has been sent to the [facility] in [place]. Follow-up with your magnetic prospecting supervisor. Forms: PCP List Discharge Date/Time: 07/11/23 00:17
[2023-07-10] MEDS: INSULIN LISPRO 300 UNIT/3 ML PEN SUBQ STA (23:58)
[2023-07-11 00:25] VITALS: BP 128/90; O2SAT 98
== END 2023-07-11 00:17 | disposition home or self-care (01) ==
LOC: ED 22:57
DX: Z76.0 Encounter for issue of repeat prescription (principal); E11.9 Type 2 diabetes mellitus without complications; Z79.4 Long term (current) use of insulin; E78.00 Pure hypercholesterolemia, unspecified
CPT/HCPCS: 99281; 99282; A9270

== ENCOUNTER 2023-07-29 22:24 | Outpatient (CLI) | payer MEDICARE, OTHER | END 2023-07-29 23:59 | disposition short-term general hospital (02) | LOC: EMS 22:24 | DX: R07.89 Other chest pain (principal); Z95.0 Presence of cardiac pacemaker; Z79.01 Long term (current) use of anticoagulants | CPT/HCPCS: A0425; A0429; A0888 ==